=== PATIENT | male | born 1975 | race Caucasian/White ===

== ENCOUNTER 2020-09-03 04:05 | Inpatient (IN) | payer BC, SELFPAY ==
[2020-09-03] VITALS (9 sets, daily range): BP systolic 127–148; BP diastolic 85–98; PULSE 78–125; RESP 16–20; TEMP 36.7–37.1; O2SAT 94–98; BMI 30.5
--- NOTE | ~2020-09-03 | XR_ITS ---
EXAMINATION: XR abdomen NG/feed tube insert EXAM DATE: 09/03/2020 06:56 INDICATION: Feeding tube placement. TECHNIQUE: Frontal projection(s) of the abdomen for interpretation. There is no prior study for lola stuart. FINDINGS: Feeding tube tip projects over left upper quadrant gastric cardial region. Some contrast w ithin the kidneys from recent intravenous injection. Several mid abdominal loops of moderately dilate d small bowel, small bowel obstruction correlating with prior CT scan. IMPRESSION: 1. Feeding tube in position. 2. Small bowel obstruction. Reviewed, dictated and finalized at location A.
--- NOTE | ~2020-09-03 | XR_ITS ---
EXAMINATION: XR sm bowel follow through WS EXAM DATE: 09/05/2020 12:20 INDICATION: Crohn's stricture . History of surgery over [address] TECHNIQUE: Hospice Rn radiograph was acquired. Small bowel series was performed with water-soluble Omnip aque 350 solution through a nasogastric tube. Spot images of the terminal ileum were acquired. Pul sed dose reduction fluoroscopy was used with fluoroscopic time of 0.3 minutes. A total of 35 images obtained for the exam. The DAP for this procedure was 19 Gycm2. Correlation is made to CT/05/14. FINDINGS: Feeding tube confirmed in position. Unremarkable stomach. Patient reportedly had terminal i montoya resection. The small bowel loop in its location leading into the colonic anastomosis site has lo ss of normal haustral folds for about 10 cm segment, has a straightened appearance, and at times was severely dilated until contrast would push through to the cecum. Appearance is consistent with inflam matory bowel disease. Rapid transit time of 15 minutes. IMPRESSION: 1. Abnormal terminal ileal segment consistent with Crohn's disease. 2. Rapid transit time 15 minutes. Reviewed, dictated and finalized at location A.
--- NOTE | ~2020-09-03 | XR_ITS ---
EXAMINATION: XR abdomen/kub 1V DATE: 09/04/2020 13:34 INDICATION: Small bowel obstruction. TECHNIQUE: A supine view of the abdomen on 2 radiographs was obtained. COMPARISON: CT abdomen and pelvis 09/03/2020 FINDINGS: There are no gas-filled dilated loops of bowel. There is a small volume of stool in the col on. The nasogastric tube tip is in the stomach. IMPRESSION: 1. Nonobstructive bowel gas pattern. Reviewed, dictated and finalized at location A.
--- NOTE | ~2020-09-03 | CT_ITS ---
EXAMINATION: CT abdomen pelvis w con INDICATION: Abdominal pain, history of Crohn's disease TECHNIQUE: Computed tomographic images of the abdomen and pelvis were obtained after the administrati on of 100 cc of Omnipaque 350 intravenous contrast. The dose-length product (DLP) was 1160.84 mGy-cm. Automated exposure control and iterative reconstruction technique were employed. COMPARISON: 04/05/2019 FINDINGS: Minimal dependent atelectasis is present in the lung bases. The heart size is normal. The l iver, spleen, pancreas, gallbladder, and adrenal glands are normal. The kidneys are unremarkable. The re is an ileocolic suture line. There is circumferential wall thickening, mucosal enhancement, and st ricturing involving approximately 8 cm segment of distal small bowel just proximal to the surgical an astomosis. The upstream bowel is dilated. There is no free intraperitoneal gas. No pathologically enl arged abdominal or pelvic lymph nodes are identified. IMPRESSION: 1. 8 cm segment of wall thickening and stricturing in the distal small bowel resulting in small bowel obstruction, most consistent with Crohn disease. Reviewed, dictated and finalized at location B. IMPRESSION: 1. 8 cm segment of wall thickening and stricturing in the distal small bowel re sulting in small bowel obstruction, most consistent with Crohn disease.
--- NOTE | 2020-09-03 04:29 | ED.ABDPAIN ---
HPI - Abdominal Pain General Chief Complaint: Abdominal Pain Stated Complaint: abd pain Time Seen by Provider: 09/03/20 04:23 Source: RN notes reviewed History of Present Illness HPI narrative: Patient presents emergency department from home for abdominal pain. Patient states symptoms began 2 days ago. Pain is located diffusely throughout the abdomen states his last bowel movement was 2 days ago and he has had several episodes of nausea vomiting this evening. Patient states he has a history of Crohn's disease followed by Dr. Johnson. States he has been taking all medications as prescribed and states this does feel like another bowel obstruction he denies any fevers or chills chest pain shortness of breath or any other symptoms Related Data Home Medications Medication Instructions Recorded Confirmed ferrous sulfate [Iron (ferrous 325 mg PO DAILY 04/05/19 12/15/19 sulfate)] mecobalamin (vitamin B12) 1,000 mcg SUBLINGUAL DAILY 04/05/19 12/15/19 Allergies Allergy/AdvReac Type Severity Reaction Status Date / Time No Known Allergies Allergy Verified 09/03/20 04:14 Review of Systems Review of Systems: Narrative: Gen.: Denies fevers or chills ENT: Denies congestion Respiratory: Denies shortness of breath or cough CV: Denies chest pain or palpitations GI: see HPI denies burning, urgency, frequency or hematuria Musculoskeletal: Denies back pain or muscle pain Neuro: Denies numbness, tingling, weakness or focal weakness Skin: Denies rash Except as documented, all other systems reviewed and negative PMFSH Past Medical History Medical History (Updated 09/03/20 @ 06:08 by Noe Katz DO) History of Crohn's disease Lower abdominal pain Partial small bowel obstruction Surgical History Surgical History History of resection of small bowel With cecectomy Family History Family History Father Hypertension Father Hypertension Family history of elevated blood lipids Social History Social History Smoking packs per day: 0.20 Smoking cigarettes per day: 4.0 Years smoked: 24 Smoking pack-years: 4.80 Smoking status: Current every day smoker Tobacco type: cigarettes Second hand tobacco smoke exposure: Yes Additional smoking assessment comments: will order gum Alcohol intake: current Drinks per week: 1 Substance use: never Substance use type: does not use Gender identity (if verbalized by the patient): Male Spiritual care concerns: No Agree to blood products: No Exam Narrative: Exam Narrative: APPEARANCE: No acute distress, nontoxic, resting in bed HEENT: Normocephalic, atraumatic, OMM RESPIRATORY: No respiratory distress, clear to auscultation bilaterally with no rhonchi wheezing or rales CARDIOVASCULAR: RRR s murmur ABDOMINAL: Soft nondistended diffusely tender to palpation no rebound or guarding MUSCULOSKELETAl: Moves all extremities. No clubbing, cyanosis or edema. NEURO: Awake and alert. Following commands, speech normal, no focal deficits SKIN:: Warm, dry. Normal Color PSYCHIATRIC: Normal affect/mood Course Course Emergency Course: Discussed with Dr. Borjas for GI presentation work-up agrees with consult at this time. Agrees with plan for NG tube request patient be started on Solu-Medrol 40 mg every 8 hours. Request general surgery consult Discussed with Dr. Magana presentation work-up agrees with consult Discussed with DEISI Jay for Dr. Urrutia presentation work-up agrees with admission at this time Discussed with patient and family results of workup and diagnosis. Discussed need for admission. Patient and family understand and agree to current treatment plan Vital Signs Vital signs: Vital Signs Temperature 98.1 F 09/03/20 04:11 Pulse Rate 117 H 09/03/20 04:11 Respiratory Rate 2
[2020-09-03 04:32] LABS: Basophils Percent Auto 0.4 % (0.2-1.2); Eosinophils Percent Auto 0.4 % (0-4.4); Hematocrit 45.9 % (42.0-52.0); Hemoglobin 16.1 g/dL (14.0-18.0); Immature Granulocyte Absolute 0.03 K/mm3 (0.00-0.031); Immature Granulocyte Percent A 0.3 % (0-0.5); Lymphocytes Absolute Auto 0.69 K/mm3 (0.9-3.2); Lymphocytes Percent Auto 6.5 % (18.3-44.2); Mean Corpuscular HGB Conc 35.1 g/dl (32-36); Mean Corpuscular Hemoglobin 31.2 pg (26-34); Mean Platelet Volume 8.3 fl (7.4-10.4); Monocytes Absolute Auto 1.1 K/mm3 (0.1-0.6); Neutrophils Absolute Auto 8.8 K/mm3 (1.3-6.7); Neutrophils Percent Auto 82.4 % (45.5-73.1); Platelet Count Result 278 k/mm3 (150-375); Red Blood Count 5.16 M/mm3 (4.6-6.20); Red Cell Distribution Width 13.6 % (11.5-14.5); White Blood Count 10.6 K/mm3 (4.5-10.0)
[2020-09-03 04:47] LABS: Alanine Aminotransferase 25 U/L (4-50); Albumin Level 4.3 g/dL (3.5-5.1); Alkaline Phosphatase 85 U/L (38-126); Anion Gap 9 mmol/L (8-16); Aspartate Amino Transferase 29 U/L (17-59); Bilirubin,Total 0.7 mg/dL (0.2-1.3); Blood Urea Nitrogen 11 mg/dL (9-20); Calcium 9.3 mg/dL (8.4-10.2); Carbon Dioxide 27 mmol/L (22-30); Chloride 103 mmol/L (98-107); Estimated CRCL calculation 90 ml/min; Estimated Glomerular Filt Rate > 60; Glucose 147 mg/dL (75-110); Lipase 46 U/L (23-300); Potassium 3.3 mmol/L (3.4-5.0); Sodium 139 mmol/L (137-145)
[2020-09-03] MEDS: SODIUM CHLORIDE 0.9% IV 1,000 ML 999 ML IV CONT (04:47)
[2020-09-03] MEDS: ONDANSETRON INJ 4 MG/2 ML VIAL IV PUSH (04:47)
[2020-09-03] MEDS: MORPHINE SULFATE (*CRX) 4 MG/ML INJ IV PUSH ×7 (04:49→19:51)
[2020-09-03 05:07] LABS: Lactic Acid Reflex 2.6 mmol/L (0.7-2.1)
[2020-09-03 05:58] LABS: Add Urine Microscopic? YES; Appearance Urine Clear (Clear); Bilirubin Urine Negative (Negative); Blood Urine 1+ (Negative); Color Urine Yellow (Yellow); Glucose Urine UA Negative (Negative); Ketones Urine Negative (Negative); Leukocyte Esterase Ur Negative LEU/UL (Negative); Mucus Urine Rare /lpf; Nitrate Urine Negative (Negative); Protein Urine 1+ mg/dL (Negative); Squamous Epithelial Cell Urine Rare /hpf (Few); Urobilinogen Urine Negative mg/dL (<2.0); WBC Urine 0-3 /hpf
[2020-09-03 06:07] LABS: Specific Grav Ur 1.046 (1.001-1.035)
[2020-09-03] MEDS: PANTOPRAZOLE SODIUM IV 40 MG VIAL IV PUSH (06:11)
[2020-09-03] MEDS: methylPREDNISolone SOD SUCC 125 MG VIAL IV PUSH (06:13)
[2020-09-03 07:54] LABS: Reflex Lactic Acid Yes or No Add Lactic
--- NOTE | 2020-09-03 08:00 | ADMGEN ---
This patient, Noe Webb II, was admitted to [facility] Surg Room 319-01. Patient/family oriented to hospital policies and general routines including ID bracelet, bed and alarms, visiting hours, pain management, procedures, bathroom and other care routines, personal items, smoking policy, room service/diet, and visiting hours. Information on how to activate the Rapid Response Team has been discussed. Patient/Family are encouraged to report perceived risks to care and to ask questions if they do not understand what they are told or what they should do.
[2020-09-03] MEDS: SODIUM CHLORIDE 0.9% IV 1,000 ML 125 ML IV CONT ×2 (08:05→15:55)
[2020-09-03 08:21] LABS: Lactic Acid 0.7 mmol/L (0.7-2.1)
--- NOTE | 2020-09-03 13:36 | PM.IMHP ---
H&P: HPI History of Present Illness Date/Time: 09/03/20 13:36 patient is a 44-year-old male with history of Crohn disease presented emergency department with a complaint abdominal for last 2 days and symptoms were progressive getting worse and presented emergency department further evaluate, patient had CT scan of the abdomen showed: 8 cm segment of wall thickening and stricturing in the distal small bowel resulting in small bowel obstruction, most consistent with Crohn disease. patient is clinically stable no significant nausea or vomiting, patient was started on Zosyn, Solu-Medrol, NPO, IVF, and pain management, patient will be seen by general surgery and GI and further recommendation to follow. Chief Complaint: abdominal pain Review of Systems Review of Systems: All systems reviewed & are unremarkable except as noted in HPI and below PMFSH Past Medical History Medical History (Updated 09/03/20 @ 06:08 by Noe Katz DO) History of Crohn's disease Lower abdominal pain Partial small bowel obstruction Surgical History Surgical History History of resection of small bowel With cecectomy Family History Family History Father Hypertension Father Hypertension Family history of elevated blood lipids Social History Social History Smoking packs per day: 0.20 Smoking cigarettes per day: 4.0 Years smoked: 24 Smoking pack-years: 4.80 Smoking status: Current every day smoker Tobacco type: cigarettes Smokeless tobacco user: chewing tobacco Second hand tobacco smoke exposure: Yes Additional smoking assessment comments: will order gum Alcohol intake: current Drinks per week: 1 Substance use: never Substance use type: does not use Gender identity (if verbalized by the patient): Male Spiritual care concerns: No Agree to blood products: No Meds Home Medications and Allergies Home Medications Medication Instructions Recorded Confirmed Type mecobalamin (vitamin B12) 1,000 mcg PO DAILY 04/05/19 09/03/20 History azathioprine 50 mg tablet 100 mg PO DAILY #180 tablet 07/24/20 09/03/20 Rx Allergies Allergy/AdvReac Type Severity Reaction Status Date / Time No Known Allergies Allergy Verified 09/03/20 08:29 Vital Signs Vital Signs - 24 hr 09/03/20 04:11 09/03/20 05:00 09/03/20 06:15 Temperature 98.1 F Pulse Rate 117 H 92 78 Respiratory Rate 20 19 20 Blood Pressure 148/85 H 133/91 H 129/91 H Pulse Oximetry 98 94 96 09/03/20 07:02 09/03/20 08:24 09/03/20 09:35 Temperature 98.4 F Pulse Rate 125 H 82 Respiratory Rate 18 Blood Pressure 140/98 H Pulse Oximetry 95 94 Exam Narrative: Exam Narrative: Patient is comfortable, NAD HEENT: eyes are clear and none icteric LUNGS:CTA HEART: RR S1S2 ABD: BS+, tender in left lower quadrant Lower extremities: no edema SKIN: nonjaundiced Neuro: grossly intact. H&P: Results Labs Labs: Short CBC 09/03/20 Range/Units 04:19 WBC 10.6 H (4.5-10.0) K/mm3 Hgb 16.1 (14.0-18.0) g/dL Hct 45.9 (42.0-52.0) % Plt Count 278 (150-375) k/mm3 BMP 09/03/20 04:19 Sodium 139 Potassium 3.3 L Chloride 103 Carbon Dioxide 27 BUN 11 Creatinine 1.20 Glucose 147 H Calcium 9.3 Liver Function 09/03/20 Range/Units 04:19 Total Bilirubin 0.7 (0.2-1.3) mg/dL AST 29 (17-59) U/L ALT 25 (4-50) U/L Alkaline Phosphatase 85 (38-126) U/L Albumin 4.3 (3.5-5.1) g/dL Urine 09/03/20 Range/Units 05:43 Urine Color Yellow (Yellow) Urine Appearance Clear (Clear) Urine pH 6.0 (5.0-9.0) Ur Specific Rawlings 1.046 H (1.001-1.035) Urine Protein 1+ H (Negative) mg/dL Urine Glucose (UA) Negative (Negative) mg/dL Assessment and Plan Assessment and plan (1) Partial small lynda
[2020-09-03] MEDS: methylPREDNISolone SOD SUCC 40 MG VIAL IV PUSH ×2 (14:28→21:49)
--- NOTE | 2020-09-03 14:51 | PM.CNGS ---
Assessment and Plan Assessment and plan (1) Partial small bowel obstruction: Code(s): K56.600 - Partial intestinal obstruction, unspecified as to cause Status: Acute Assessment and Plan: CT scan with evidence of an 8 cm segment of terminal ileum wall thickening and stricture causing a small bowel obstruction. Patient showing some signs of bowel function today. Will continue with NG tube decompression, IV fluids, analgesics, and bowel rest for now. GI has been consulted, and he has been started on IV steroids and the home dose of his Imuran. The patient is requesting to consider surgical resection due to the repeat hospitalizations and increase in frequency of symptoms at home that sound like intermittent partial small bowel obstructions. We will await GI's recommendations and continue conservative measures for now. Dr. Magana will also be evaluating the patient and discuss options. Thank you for allowing us to see the patient in consultation and we will continue to follow along with you. (2) Crohn's disease of small intestine with intestinal obstruction: Code(s): K50.012 - Crohn's disease of small intestine with intestinal obstruction Status: Acute Assessment and Plan: Continue IV steroids and treatment per GI. GI consulted and will await their recommendations. Additional Plan I have discussed the patient's case and plan of care with Dr. Magana. History of Present Illness Consult details Consult date: 09/03/20 Reason for consult: other (Small bowel obstruction secondary to terminal ileum stricture, Crohns disease) Requesting physician: Noe Katz DO Narrative: This is a 44-year-old male with a long history of Crohn's disease, who presented to the ER with complaints of abdominal pain and vomiting. He was initially diagnosed with Crohn's as a teenager and eventually had an ileocecectomy in 1996. Following surgery, he was on Imuran for maintenance up until about 3-4 years ago. He was off his medication due to his [employer] retiring and he didn't seek care elsewhere. Since then, he has established care with Dr. Johnson and has been on Imuran since his last hospitalization in March of 2019. He has now been hospitalized 4 times since 2016, including this hospital stay, for a small bowel obstruction secondary to a stricture in the terminal ileum. All episodes have resolved with treatment of his Crohn's and conservative measures. He reports having a colonoscopy last in 2019 that showed narrowing of the terminal ileum. He states that he began having pain 2 days ago after eating a salad. He reports cramping lower abdominal pain and bloating. He then developed nausea with one episode of vomiting. Due to the severe pain, he presented to the ER for evaluation. CT scan of the abdomen and pelvis showed an 8 cm segment of wall thickening and stricturing in the distal small bowel resulting in small bowel obstruction. The patient was admitted to the Hospitalist. GI has been consulted. Our service was consulted for the small bowel obstruction. The patient is now seen on the medical floor. He reports little to no improvement in his abdominal pain. He does feel his bloating is better. Reports flatus, but no BM since around 4 pm two days ago. No other complaints at this time. Also to note, the patient reports that he has frequent episodes of abdominal pain and constipation at home about every other month that resolves with bowel rest and time. He is ultimately trying conservative management at home to avoid coming to the hospital. He feels these episodes have become more frequent in the past few years. Review of Systems Review of Systems: All systems reviewed & are unremarkable except as noted in HPI and below Constitutional: Constitutional: Reports as per HPI, Denies chills, Denies fatigue and Denies fever(s) Eyes: Eyes: Reports no additional eye complaints and Denies change in vision ENT: Reports system reviewed
--- NOTE | 2020-09-03 16:56 | WPDGICN ---
Assessment and Plan Assessment and plan (1) Crohn's disease of small intestine with intestinal obstruction: Code(s): K50.012 - Crohn's disease of small intestine with intestinal obstruction Status: Acute Assessment and Plan: he has been started on intravenous steroids and antibiotics. NG tube suction is in place. He understands that diet will be advanced when it is felt that his obstruction is resolving sufficiently to be on a liquid diet. He is adamant that he is not going to take any biologic therapy. He states that he would rather have surgery. GI Consult Note Consult date/time: 09/03/20 16:56 HPI: Noe Webb II is a 44 year old male Who was admitted through the emergency room with abdominal pain and vomiting. He has long history of Crohn's disease and in fact he has been hospitalized for small bowel obstruction due to his Crohn's disease a couple of times in the last 2 years. He states that he has declined biologic therapy because he is will not injected self with the needle. He is taking azathioprine along. He states that he was doing fine until Thursday. He had a large dinner which included a salad and sometime later began to feel full and distended next day he was having abdominal pain and he realized he was not having any bowel movements. Normally his stools are loose. The patient required surgery with resection of his distal small bowel in 1996. He vomited once yesterday. In the emergency room he had a CT scan that showed narrowing of the distal small bowel with some proximal dilatation. The patient has been seen by surgery the patient states that he is inclined to have surgery brother that any biologic therapy. He recalls that with his last admissions he was sent home on tapering doses of steroids and did well with that. He has had no weight loss. He last saw Dr. knott in the office few months ago. He has been able to tolerate solids until recently but he knows that when he has these occurrences that he needs to go on a diet that is low in vegetable matter. He states that his pain is much improved over this morning. Review of Systems Review of Systems: All systems reviewed & are unremarkable except as noted in HPI and below PMFSH Past Medical History Medical History History of Crohn's disease Lower abdominal pain Partial small bowel obstruction Surgical History Surgical History History of resection of small bowel 1997 Ileocecectomy Family History Family History Father Hypertension Father Hypertension Family history of elevated blood lipids Social History Social History Smoking packs per day: 0.20 Smoking cigarettes per day: 4.0 Years smoked: 24 Smoking pack-years: 4.80 Smoking status: Current every day smoker Tobacco type: cigarettes Smokeless tobacco user: chewing tobacco Second hand tobacco smoke exposure: Yes Additional smoking assessment comments: will order gum Alcohol intake: current Drinks per week: 1 Substance use: never Substance use type: does not use Gender identity (if verbalized by the patient): Male Spiritual care concerns: No Agree to blood products: No Meds Home Medications and Allergies Home Medications Medication Instructions Recorded Confirmed Type mecobalamin (vitamin B12) 1,000 mcg PO DAILY 04/05/19 09/03/20 History azathioprine 50 mg tablet 100 mg PO DAILY #180 tablet 07/24/20 09/03/20 Rx Allergies Allergy/AdvReac Type Severity Reaction Status Date / Time No Known Allergies Allergy Verified 09/03/20 08:29 Vital Signs Vital Signs - 24 hr 09/03/20 04:11 09/03/20 05:00 09/03/20 06:15 Temperature 36.7 C Pulse Rate 117 H 92 78 Respiratory Rate 20 19 20 Blood Pressure 148/85 H 1
[2020-09-04] VITALS (7 sets, daily range): BP systolic 120–138; BP diastolic 66–86; PULSE 67–85; RESP 16–20; TEMP 36.2–36.6; O2SAT 96–97
[2020-09-04] MEDS: MORPHINE SULFATE (*CRX) 4 MG/ML INJ IV PUSH (00:13)
[2020-09-04] MEDS: SODIUM CHLORIDE 0.9% IV 1,000 ML 125 ML IV CONT ×2 (00:13→07:43)
[2020-09-04] MEDS: methylPREDNISolone SOD SUCC 40 MG VIAL IV PUSH ×3 (06:14→22:30)
[2020-09-04 06:33] LABS: Basophils Percent Auto 0.1 % (0.2-1.2); Hematocrit 39.2 % (42.0-52.0); Hemoglobin 13.7 g/dL (14.0-18.0); Immature Granulocyte Absolute 0.03 K/mm3 (0.00-0.031); Immature Granulocyte Percent A 0.3 % (0-0.5); Lymphocytes Absolute Auto 0.67 K/mm3 (0.9-3.2); Lymphocytes Percent Auto 7.8 % (18.3-44.2); Mean Corpuscular HGB Conc 34.9 g/dl (32-36); Mean Corpuscular Hemoglobin 31.4 pg (26-34); Mean Corpuscular Volume 89.9 fl (80-100); Mean Platelet Volume 8.5 fl (7.4-10.4); Monocytes Absolute Auto 0.6 K/mm3 (0.1-0.6); Monocytes Percent Auto 6.7 % (2.6-8.5); Neutrophils Absolute Auto 7.3 K/mm3 (1.3-6.7); Neutrophils Percent Auto 85.1 % (45.5-73.1); Platelet Count Result 252 k/mm3 (150-375); Red Blood Count 4.36 M/mm3 (4.6-6.20); Red Cell Distribution Width 13.4 % (11.5-14.5); White Blood Count 8.6 K/mm3 (4.5-10.0)
[2020-09-04 06:42] LABS: Alanine Aminotransferase 20 U/L (4-50); Albumin Level 3.5 g/dL (3.5-5.1); Alkaline Phosphatase 69 U/L (38-126); Anion Gap 4 mmol/L (8-16); Aspartate Amino Transferase 21 U/L (17-59); Bilirubin,Total 0.4 mg/dL (0.2-1.3); Blood Urea Nitrogen 13 mg/dL (9-20); Calcium 7.7 mg/dL (8.4-10.2); Carbon Dioxide 30 mmol/L (22-30); Chloride 105 mmol/L (98-107); Estimated CRCL calculation 118 ml/min; Estimated Glomerular Filt Rate > 60; Glucose 132 mg/dL (75-110); Magnesium 1.5 mg/dL (1.6-2.3); Potassium 3.2 mmol/L (3.4-5.0); Sodium 139 mmol/L (137-145)
[2020-09-04] MEDS: azaTHIOprine 50 MG TABLET 100 MG PO (09:22)
[2020-09-04] MEDS: CYANOCOBALAMIN 1,000 MCG TABLET 1000 MCG PO (09:22)
--- NOTE | 2020-09-04 14:56 | PM.PNGS ---
Progress Note: A&P Assessment and Plan (1) Partial small bowel obstruction: Code(s): K56.600 - Partial intestinal obstruction, unspecified as to cause Status: Acute Assessment and Plan: Seems to be resolving with treatment of his Crohn's. Showing more signs of bowel function today, but still had over 500 cc from the NG tube overnight. Abdominal x-ray today shows nonobstructive bowel gas pattern. Continue NG tube decompression and bowel rest. May consider Gastrografin small bowel follow through tomorrow to further evaluate. Patient is still interested in having surgical resection. It would be preferable for him to complete the course of steroids for this acute flare-up and hopefully allow this bowel obstruction to resolve prior to proceeding with any surgical intervention. This could be discussed further as an outpatient if he continues to improve. (2) Crohn's disease of small intestine with intestinal obstruction: Code(s): K50.012 - Crohn's disease of small intestine with intestinal obstruction Status: Acute Assessment and Plan: Continue IV steroids and treatment per GI. Additional Plan I discussed the plan of care with Dr. Magana. Subjective Subjective Date/Time Seen: 09/04/20 13:56 Patient reports: no new complaints, feels better and flatus Interval history: Patient feeling much better today. Reports lots of flatus. Denies abdominal pain and feels his bloating has improved. No other complaints at this time. Review of Systems Review of Systems: All systems reviewed & are unremarkable except as noted in HPI and below Exam Const: General: no acute distress, alert and awake GI: Inspection: normal to inspection and non-distended GI Palp: Yes Soft to palpation, No Tenderness to palpation present (GI) and No Guarding due to palpation present (GI) Auscultation: normal bowel sounds Neuro: General: moves all extremities and no focal motor deficits Extrem: General: no clubbing, cyanosis or edema Psych: Mental Status: mental status grossly normal Insight: Good insight present (Psych) Judgement: Good judgement present (Psych) Objective Data Vital Signs Vital Signs: Vital Signs - 24 hr 09/03/20 20:36 09/03/20 22:00 09/04/20 06:00 Temperature 98.7 F 97.1 F L Pulse Rate 95 95 67 Respiratory Rate 16 16 16 Blood Pressure 127/87 120/79 Pulse Oximetry 94 94 97 09/04/20 12:05 09/04/20 12:07 Temperature 97.5 F L 97.5 F L Pulse Rate 85 85 Respiratory Rate 20 20 Blood Pressure 129/84 129/84 Pulse Oximetry 97 97 Intake/Output Intake/Output: Intake & Output 09/01/20 09/02/20 09/03/20 09/04/20 23:59 23:59 23:59 23:59 Intake Total 3000 1000 Output Total 1250 1050 Balance 1750 -50 Meds/Results Medications: Active Medications Generic Name Dose Route Start Last Admin Trade Name Freq PRN Reason Stop Dose Admin Azathioprine 100 mg 09/04/20 09:00 09/04/20 09:22 Azathioprine 50 Mg Tablet PO 100 mg DAILY JUSTINE Administration Cyanocobalamin 1,000 mcg 09/04/20 09:00 09/04/20 09:22 Cyanocobalamin 1,000 Mcg Tablet PO 1,000 mcg QAM JUSTINE Administration Potassium Chloride 40 meq/ 1,024 mls @ 75 mls/hr 09/04/20 08:30 09/04/20 12:08 Magnesium Sulfate 2 gm/ Sodium IV CONT 09/04/20 22:09 75 mls/hr Chloride .[id number] ONE Infusion Sodium Chloride 1,000 mls @ 125 mls/hr 09/04/20 18:30 Normal Saline Iv IV CONT .Q8H JUSTINE Methylprednisolone Sodium Succinate 40 mg 09/03/20 14:00 09/04/20 14:27 Methylprednisolone Sod Succ 40 Mg Vial IV PUSH 40 mg Q8HR JUSTINE Administration Morphine Sulfate 4 mg 09/03/20 06:03 09/04/20 00:13 Morphine Sulfate (*Crx) 4 Mg/Ml Inj IV PUSH 4 mg Q2H PRN Administration Pain Rated 7-10 Ondansetron HCl 4 mg 09/03/20 06:03 Ondansetron Inj 4 Mg/2 Ml Vial IV PUSH Q4H PRN Nausea Radiology Results: ITS Impressions Abdomen/Pelvis CT 09/03/20 08:44 IMPRESSION: 1. 8 cm segment of
--- NOTE | 2020-09-04 15:58 | PM.IMPN ---
Progress Note: A&P Assessment and Plan (1) Partial small bowel obstruction: Code(s): K56.600 - Partial intestinal obstruction, unspecified as to cause Status: Acute Assessment and Plan: 09/04/20 15:58 09/03 patient is a 44-year-old male with history of Crohn disease presented emergency department with a complaint abdominal for last 2 days and symptoms were progressive getting worse and presented emergency department further evaluate, patient had CT scan of the abdomen showed: 8 cm segment of wall thickening and stricturing in the distal small bowel resulting in small bowel obstruction, most consistent with Crohn disease. patient is clinically stable no significant nausea or vomiting, patient was started on Zosyn, Solu-Medrol, NPO, IVF, and pain management, patient will be seen by general surgery and GI and further recommendation to follow. 09/04 today patient states pain is better his passing gas, he still has NG tube output, patient was seen by GI recommended biologic treatment for Crohn disease however patient is refusing and prefers having surgery, patient seen by surgery team recommending to continue steroid, abdominal x-ray was done it shows improvement in obstruction, will follow further recommendation from surgery team and plan. (2) Lower abdominal pain: Code(s): R10.30 - Lower abdominal pain, unspecified Status: Inactive Assessment and Plan: most likely secondary to flare-up of Crohn disease and now patient has obstruction plan is above (3) Crohn's disease of small intestine with intestinal obstruction: Code(s): K50.012 - Crohn's disease of small intestine with intestinal obstruction Status: Acute Assessment and Plan: patient is seen by GI and and surgery service further recommendation to follow Subjective Date/time seen: 09/04/20 15:58 09/03 patient is a 44-year-old male with history of Crohn disease presented emergency department with a complaint abdominal for last 2 days and symptoms were progressive getting worse and presented emergency department further evaluate, patient had CT scan of the abdomen showed: 8 cm segment of wall thickening and stricturing in the distal small bowel resulting in small bowel obstruction, most consistent with Crohn disease. patient is clinically stable no significant nausea or vomiting, patient was started on Zosyn, Solu-Medrol, NPO, IVF, and pain management, patient will be seen by general surgery and GI and further recommendation to follow. 09/04 today patient states pain is better his passing gas, he still has NG tube output, patient was seen by GI recommended biologic treatment for Crohn disease however patient is refusing and prefers having surgery, patient seen by surgery team recommending to continue steroid, abdominal x-ray was done it shows improvement in obstruction, will follow further recommendation from surgery team and plan. Review of Systems Review of Systems: All systems reviewed & are unremarkable except as noted in HPI and below Exam Narrative: Exam Narrative: Patient is comfortable, NAD HEENT: eyes are clear and none icteric LUNGS:CTA HEART: RR S1S2 ABD: BS+, tender in left lower quadrant Lower extremities: no edema SKIN: nonjaundiced Neuro: grossly intact. Objective Data Vital Signs Vital Signs: Vital Signs - 24 hr 09/03/20 20:36 09/03/20 22:00 09/04/20 06:00 Temperature 98.7 F 97.1 F L Pulse Rate 95 95 67 Respiratory Rate 16 16 16 Blood Pressure 127/87 120/79 Pulse Oximetry 94 94 97 09/04/20 12:05 09/04/20 12:07 09/04/20 14:00 Temperature 97.5 F L 97.5 F L 98 F Pulse Rate 85 85 79 Respiratory Rate 20 20 18 Blood Pressure 129/84 129/84 136/66 Pulse Oximetry 97 97 96 Intake/Output Intake/Output: Intake & Output 09/01/20 09/02/20 09/03/20 09/04/20 23:59 23:59 23:59 23:59 Intake Total 3000 1000 Output Total 1250 1050 Balance 1750 -50 Meds/Results Medication
[2020-09-05] MEDS: SODIUM CHLORIDE 0.9% IV 1,000 ML 125 ML IV CONT (03:54)
[2020-09-05] MEDS: methylPREDNISolone SOD SUCC 40 MG VIAL IV PUSH ×3 (05:41→21:38)
[2020-09-05 06:00] VITALS: BP 144/87; PULSE 71; RESP 20; TEMP 36.2; O2SAT 97
[2020-09-05 06:20] LABS: Hematocrit 41.8 % (42.0-52.0); Hemoglobin 14.3 g/dL (14.0-18.0); Mean Corpuscular HGB Conc 34.2 g/dl (32-36); Mean Corpuscular Hemoglobin 31.2 pg (26-34); Mean Corpuscular Volume 91.3 fl (80-100); Mean Platelet Volume 8.7 fl (7.4-10.4); Platelet Count Result 256 k/mm3 (150-375); Red Blood Count 4.58 M/mm3 (4.6-6.20); Red Cell Distribution Width 13.9 % (11.5-14.5); White Blood Count 10.6 K/mm3 (4.5-10.0)
[2020-09-05 06:30] LABS: Alanine Aminotransferase 22 U/L (4-50); Albumin Level 3.6 g/dL (3.5-5.1); Alkaline Phosphatase 65 U/L (38-126); Anion Gap 5 mmol/L (8-16); Aspartate Amino Transferase 26 U/L (17-59); Bilirubin,Total 0.4 mg/dL (0.2-1.3); Blood Urea Nitrogen 15 mg/dL (9-20); Carbon Dioxide 31 mmol/L (22-30); Chloride 106 mmol/L (98-107); Estimated CRCL calculation 118 ml/min; Estimated Glomerular Filt Rate > 60; Glucose 132 mg/dL (75-110); Magnesium 2.2 mg/dL (1.6-2.3); Potassium 3.2 mmol/L (3.4-5.0); Sodium 142 mmol/L (137-145)
--- NOTE | 2020-09-05 07:47 | WPDGIPROGNO ---
Progress Note: A&P Assessment and Plan (1) Crohn's disease of small intestine with intestinal obstruction: Code(s): K50.012 - Crohn's disease of small intestine with intestinal obstruction Status: Acute Assessment and Plan: Likely will have small bowel series today and then begin clear liquid diet. The plan is that he will be discharged on tapering steroids with resection of the involved segment in the couple of weeks. I told him that, if insurance pays for it may be able to go home on Entocort which does not have the systemic side effects. He is however okay with tapering prednisone as he has done that in the past. Subjective Date/time seen: 09/05/20 07:47 he is feeling much better. He has passing gas. His abdominal pain is virtually gone. He is getting hungry. He believes that he is going to have a small bowel series this morning. He knows from prior experience that he then will be on a clear liquid diet and advanced as tolerated. Review of Systems Review of Systems: All systems reviewed & are unremarkable except as noted in HPI and below Exam Const: General: cooperative and healthy appearing Orientation/consciousness: oriented to person GI: GI Palp: No abdominal tenderness, Yes Soft to palpation and Yes No hepatosplenomegaly present Auscultation: normal bowel sounds Objective Data Vital Signs Vital Signs: Vital Signs - 24 hr 09/04/20 12:05 09/04/20 12:07 09/04/20 14:00 Temperature 36.4 C L 36.4 C L 36.6 C Pulse Rate 85 85 79 Respiratory Rate 20 20 18 Blood Pressure 129/84 129/84 136/66 Pulse Oximetry 97 97 96 09/04/20 20:00 09/04/20 22:00 09/04/20 22:55 Temperature 36.3 C L Pulse Rate 79 83 80 Respiratory Rate 18 20 Blood Pressure 138/86 Pulse Oximetry 96 96 97 09/05/20 06:00 Temperature 36.2 C L Pulse Rate 71 Respiratory Rate 20 Blood Pressure 144/87 H Pulse Oximetry 97 Intake/Output Intake/Output: Intake & Output 09/02/20 09/03/20 09/04/20 09/05/20 23:59 23:59 23:59 23:59 Intake Total 3000 2023 1000 Output Total 1250 2049 850 Balance 1750 -26 150 Meds/Results Medications: Active Medications Generic Name Dose Route Start Last Admin Trade Name Freq PRN Reason Stop Dose Admin Azathioprine 100 mg 09/04/20 09:00 09/04/20 09:22 Azathioprine 50 Mg Tablet PO 100 mg DAILY JUSTINE Administration Cyanocobalamin 1,000 mcg 09/04/20 09:00 09/04/20 09:22 Cyanocobalamin 1,000 Mcg Tablet PO 1,000 mcg QAM JUSTINE Administration Sodium Chloride 1,000 mls @ 125 mls/hr 09/04/20 18:30 09/05/20 03:54 Normal Saline Iv IV CONT 125 mls/hr .Q8H JUSTINE Administration Potassium Chloride 500 mls @ 125 mls/hr 09/05/20 07:45 Kcl 40 Meq/D5w 500 Ml Peripheral IVPB 09/05/20 11:44 ONCE ONE Methylprednisolone Sodium Succinate 40 mg 09/03/20 14:00 09/05/20 05:41 Methylprednisolone Sod Succ 40 Mg Vial IV PUSH 40 mg Q8HR JUSTINE Administration Morphine Sulfate 4 mg 09/03/20 06:03 09/04/20 00:13 Morphine Sulfate (*Crx) 4 Mg/Ml Inj IV PUSH 4 mg Q2H PRN Administration Pain Rated 7-10 Ondansetron HCl 4 mg 09/03/20 06:03 Ondansetron Inj 4 Mg/2 Ml Vial IV PUSH Q4H PRN Nausea Radiology Results: ITS Impressions Abdomen/Pelvis CT 09/03/20 08:44 IMPRESSION: 1. 8 cm segment of wall thickening and stricturing in the distal small bowel resulting in small bowel obstruction, most consistent with Crohn disease. Abdomen X-Ray 09/04/20 14:00 IMPRESSION: 1. Nonobstructive bowel gas pattern. Labs Labs: Laboratory Results - last 24 hr 09/05/20 09/05/20 05:53 05:53 WBC 10.6 H RBC 4.58 L Hgb 14.3 Hct 41.8 L MCV 91.3 MCH 31.2 MCHC 34.2 RDW 13.9 Plt Count 256 MPV 8.7 Sodium 142 Potassium 3.2 L Chloride 106 Carbon Dioxide 31 H Anion Gap 5 L BUN 15 Creatinine 0.90 Estim Creat Clear Calc 118 Estimated GFR > 60 Glucose 132 H Calcium 8.0 L
[2020-09-05 08:10] VITALS: O2SAT 97
[2020-09-05] MEDS: azaTHIOprine 50 MG TABLET 100 MG PO (08:38)
[2020-09-05] MEDS: CYANOCOBALAMIN 1,000 MCG TABLET 1000 MCG PO (08:38)
--- NOTE | 2020-09-05 09:47 | PM.IMPN ---
Progress Note: A&P Assessment and Plan (1) Partial small bowel obstruction: Code(s): K56.600 - Partial intestinal obstruction, unspecified as to cause Status: Acute Assessment and Plan: 09/05/20 09:47 09/03 patient is a 44-year-old male with history of Crohn disease presented emergency department with a complaint abdominal for last 2 days and symptoms were progressive getting worse and presented emergency department further evaluate, patient had CT scan of the abdomen showed: 8 cm segment of wall thickening and stricturing in the distal small bowel resulting in small bowel obstruction, most consistent with Crohn disease. patient is clinically stable no significant nausea or vomiting, patient was started on Zosyn, Solu-Medrol, NPO, IVF, and pain management, patient will be seen by general surgery and GI and further recommendation to follow. 09/04 today patient states pain is better his passing gas, he still has NG tube output, patient was seen by GI recommended biologic treatment for Crohn disease however patient is refusing and prefers having surgery, patient seen by surgery team recommending to continue steroid, abdominal x-ray was done it shows improvement in obstruction, will follow further recommendation from surgery team and plan. 09/05 today patient states he had a BM this morning, denies any a abdominal pain nausea or vomiting, NG tube is draining dark green liquid, patient will have a small-bowel follow-through today and will be seen surgery most likely will remove the NG tube and start the patient on clear liquid will continue to monitor further recommendation to follow (2) Lower abdominal pain: Code(s): R10.30 - Lower abdominal pain, unspecified Status: Inactive Assessment and Plan: most likely secondary to flare-up of Crohn disease and now patient has obstruction plan is above (3) Crohn's disease of small intestine with intestinal obstruction: Code(s): K50.012 - Crohn's disease of small intestine with intestinal obstruction Status: Acute Assessment and Plan: patient is seen by GI and and surgery service further recommendation to follow Subjective Date/time seen: 09/05/20 09:47 09/03 patient is a 44-year-old male with history of Crohn disease presented emergency department with a complaint abdominal for last 2 days and symptoms were progressive getting worse and presented emergency department further evaluate, patient had CT scan of the abdomen showed: 8 cm segment of wall thickening and stricturing in the distal small bowel resulting in small bowel obstruction, most consistent with Crohn disease. patient is clinically stable no significant nausea or vomiting, patient was started on Zosyn, Solu-Medrol, NPO, IVF, and pain management, patient will be seen by general surgery and GI and further recommendation to follow. 09/04 today patient states pain is better his passing gas, he still has NG tube output, patient was seen by GI recommended biologic treatment for Crohn disease however patient is refusing and prefers having surgery, patient seen by surgery team recommending to continue steroid, abdominal x-ray was done it shows improvement in obstruction, will follow further recommendation from surgery team and plan. 09/05 today patient states he had a BM this morning, denies any a abdominal pain nausea or vomiting, NG tube is draining dark green liquid, patient will have a small-bowel follow-through today and will be seen surgery most likely will remove the NG tube and start the patient on clear liquid will continue to monitor further recommendation to follow Review of Systems Review of Systems: All systems reviewed & are unremarkable except as noted in HPI and below Exam Narrative: Exam Narrative: Patient is comfortable, NAD HEENT: eyes are clear and none icteric NG tube in place LUNGS:CTA HEART: RR S1S2 ABD: BS+, tender in left lower quadrant Lower extremities:
--- NOTE | 2020-09-05 12:58 | PM.PNGS ---
Progress Note: A&P Assessment and Plan (1) Partial small bowel obstruction: Code(s): K56.600 - Partial intestinal obstruction, unspecified as to cause Status: Acute Assessment and Plan: small-bowel follow-through reviewed. 10 cm segment of stricture at the previous anastomosis. I would recommend eventual resection to prevent recurrent obstructions. I would like patient to be tapered off the steroids to help decrease risks of perioperative complications. If patient can tolerate advancing to at least a full liquid diet, then I would recommend discharging with a soft or liquid diet and will follow up with patient in the office to schedule elective partial bowel resection. Will remove NG tube and start clear liquids, possibly home tomorrow if diet can be advanced (2) Crohn's disease of small intestine with intestinal obstruction: Code(s): K50.012 - Crohn's disease of small intestine with intestinal obstruction Status: Acute Subjective Subjective Date/Time Seen: 09/05/20 12:58 Interval history: Bowels moving. No more abdominal pain. Exam GI: Inspection: non-distended and scar ( Vertical midline) GI Palp: Yes Soft to palpation, No Tenderness to palpation present (GI) and No Guarding due to palpation present (GI) Auscultation: normal bowel sounds Objective Data Vital Signs Vital Signs: Vital Signs - 24 hr 09/04/20 14:00 09/04/20 20:00 09/04/20 22:00 Temperature 36.6 C 36.3 C L Pulse Rate 79 79 83 Respiratory Rate 18 18 20 Blood Pressure 136/66 138/86 Pulse Oximetry 96 96 96 09/04/20 22:55 09/05/20 06:00 09/05/20 08:10 Temperature 36.2 C L Pulse Rate 80 71 Respiratory Rate 20 Blood Pressure 144/87 H Pulse Oximetry 97 97 97 Intake/Output Intake/Output: Intake & Output 09/02/20 09/03/20 09/04/20 09/05/20 23:59 23:59 23:59 23:59 Intake Total 3000 2023 1000 Output Total 1250 2049 850 Balance 1750 -26 150 Meds/Results Medications: Active Medications Generic Name Dose Route Start Last Admin Trade Name Freq PRN Reason Stop Dose Admin Azathioprine 100 mg 09/04/20 09:00 09/05/20 08:38 Azathioprine 50 Mg Tablet PO 100 mg DAILY JUSTINE Administration Cyanocobalamin 1,000 mcg 09/04/20 09:00 09/05/20 08:38 Cyanocobalamin 1,000 Mcg Tablet PO 1,000 mcg QAM JUSTINE Administration Methylprednisolone Sodium Succinate 40 mg 09/03/20 14:00 09/05/20 05:41 Methylprednisolone Sod Succ 40 Mg Vial IV PUSH 40 mg Q8HR JUSTINE Administration Morphine Sulfate 4 mg 09/03/20 06:03 09/04/20 00:13 Morphine Sulfate (*Crx) 4 Mg/Ml Inj IV PUSH 4 mg Q2H PRN Administration Pain Rated 7-10 Ondansetron HCl 4 mg 09/03/20 06:03 Ondansetron Inj 4 Mg/2 Ml Vial IV PUSH Q4H PRN Nausea Radiology Results: ITS Impressions Abdomen/Pelvis CT 09/03/20 08:44 IMPRESSION: 1. 8 cm segment of wall thickening and stricturing in the distal small bowel resulting in small bowel obstruction, most consistent with Crohn disease. Abdomen X-Ray 09/04/20 14:00 IMPRESSION: 1. Nonobstructive bowel gas pattern. Small Bowel X-Ray 09/05/20 12:30 IMPRESSION: 1. Abnormal terminal ileal segment consistent with Crohn's disease. 2. Rapid transit time 15 minutes. Labs Labs: Laboratory Results - last 24 hr 09/05/20 09/05/20 05:53 05:53 WBC 10.6 H RBC 4.58 L Hgb 14.3 Hct 41.8 L MCV 91.3 MCH 31.2 MCHC 34.2 RDW 13.9 Plt Count 256 MPV 8.7 Sodium 142 Potassium 3.2 L Chloride 106 Carbon Dioxide 31 H Anion Gap 5 L BUN 15 Creatinine 0.90 Estim Creat Clear Calc 118 Estimated GFR > 60 Glucose 132 H Calcium 8.0 L Magnesium 2.2 Total Bilirubin 0.4 AST 26 ALT 22 Alkaline Phosphatase 65 Total Protein 6.0 L Albumin 3.6 Quality VTE Prophylaxis VTE prophylaxis: mechanical ordered
[2020-09-05 14:00] VITALS: BP 143/84; PULSE 70; RESP 18; TEMP 36.9; O2SAT 98
[2020-09-05 20:00] VITALS: PULSE 70; RESP 18; O2SAT 98
[2020-09-05 22:00] VITALS: BP 147/88; PULSE 78; RESP 20; TEMP 36.3; O2SAT 97
[2020-09-05 22:50] VITALS: O2SAT 97
[2020-09-06] MEDS: methylPREDNISolone SOD SUCC 40 MG VIAL IV PUSH ×2 (05:56→14:28)
[2020-09-06 06:00] VITALS: BP 136/73; PULSE 51; RESP 18; TEMP 36.6; O2SAT 97
[2020-09-06 06:42] LABS: Alanine Aminotransferase 22 U/L (4-50); Albumin Level 3.6 g/dL (3.5-5.1); Alkaline Phosphatase 59 U/L (38-126); Anion Gap 6 mmol/L (8-16); Aspartate Amino Transferase 23 U/L (17-59); Bilirubin,Total 0.4 mg/dL (0.2-1.3); Blood Urea Nitrogen 13 mg/dL (9-20); Calcium 8.1 mg/dL (8.4-10.2); Carbon Dioxide 31 mmol/L (22-30); Chloride 103 mmol/L (98-107); Estimated CRCL calculation 107 ml/min; Estimated Glomerular Filt Rate > 60; Glucose 133 mg/dL (75-110); Potassium 3.6 mmol/L (3.4-5.0); Sodium 140 mmol/L (137-145)
[2020-09-06 07:05] LABS: Hematocrit 41.4 % (42.0-52.0); Hemoglobin 13.9 g/dL (14.0-18.0); Mean Corpuscular HGB Conc 33.6 g/dl (32-36); Mean Corpuscular Hemoglobin 31.4 pg (26-34); Mean Corpuscular Volume 93.5 fl (80-100); Mean Platelet Volume 8.9 fl (7.4-10.4); Platelet Count Result 249 k/mm3 (150-375); Red Blood Count 4.43 M/mm3 (4.6-6.20); Red Cell Distribution Width 13.8 % (11.5-14.5); White Blood Count 12.1 K/mm3 (4.5-10.0)
[2020-09-06] MEDS: CYANOCOBALAMIN 1,000 MCG TABLET 1000 MCG PO (08:58)
[2020-09-06] MEDS: azaTHIOprine 50 MG TABLET 100 MG PO (08:58)
--- NOTE | 2020-09-06 10:20 | PM.PNGS ---
Progress Note: A&P Assessment and Plan (1) Partial small bowel obstruction: Code(s): K56.600 - Partial intestinal obstruction, unspecified as to cause Status: Acute Assessment and Plan: Acute obstruction resolved. Patient still has a narrow stricture that will be at risk for future obstructions. Will allow patient to recover from this episode and then discuss partial bowel resection as outpatient. OK to discharge today Follow up in office in 1 week (2) Crohn's disease of small intestine with intestinal obstruction: Code(s): K50.012 - Crohn's disease of small intestine with intestinal obstruction Status: Acute Subjective Subjective Date/Time Seen: 09/06/20 10:20 Interval history: Tolerating regular diet. No abdominal pain. Bowels moving. Exam GI: Inspection: non-distended and scar ( Vertical midline) GI Palp: Yes Soft to palpation, No Tenderness to palpation present (GI) and No Guarding due to palpation present (GI) Auscultation: normal bowel sounds Objective Data Vital Signs Vital Signs: Vital Signs - 24 hr 09/05/20 14:00 09/05/20 20:00 09/05/20 22:00 Temperature 36.9 C 36.3 C L Pulse Rate 70 70 78 Respiratory Rate 18 18 20 Blood Pressure 143/84 H 147/88 H Pulse Oximetry 98 98 97 09/05/20 22:50 09/06/20 06:00 Temperature 36.6 C Pulse Rate 51 L Respiratory Rate 18 Blood Pressure 136/73 Pulse Oximetry 97 97 Intake/Output Intake/Output: Intake & Output 09/03/20 09/04/20 09/05/20 09/06/20 23:59 23:59 23:59 23:59 Intake Total 3000 4 2770 990 Output Total 1250 0 1125 Balance 1750 -26 1645 990 Meds/Results Medications: Active Medications Generic Name Dose Route Start Last Admin Trade Name Freq PRN Reason Stop Dose Admin Azathioprine 100 mg 09/04/20 09:00 09/06/20 08:58 Azathioprine 50 Mg Tablet PO 100 mg DAILY JUSTINE Administration Cyanocobalamin 1,000 mcg 09/04/20 09:00 09/06/20 08:58 Cyanocobalamin 1,000 Mcg Tablet PO 1,000 mcg QAM JUSTINE Administration Methylprednisolone Sodium Succinate 40 mg 09/03/20 14:00 09/06/20 05:56 Methylprednisolone Sod Succ 40 Mg Vial IV PUSH 40 mg Q8HR JUSTINE Administration Morphine Sulfate 4 mg 09/03/20 06:03 09/04/20 00:13 Morphine Sulfate (*Crx) 4 Mg/Ml Inj IV PUSH 4 mg Q2H PRN Administration Pain Rated 7-10 Ondansetron HCl 4 mg 09/03/20 06:03 Ondansetron Inj 4 Mg/2 Ml Vial IV PUSH Q4H PRN Nausea Radiology Results: ITS Impressions Abdomen/Pelvis CT 09/03/20 08:44 IMPRESSION: 1. 8 cm segment of wall thickening and stricturing in the distal small bowel resulting in small bowel obstruction, most consistent with Crohn disease. Abdomen X-Ray 09/04/20 14:00 IMPRESSION: 1. Nonobstructive bowel gas pattern. Small Bowel X-Ray 09/05/20 12:30 IMPRESSION: 1. Abnormal terminal ileal segment consistent with Crohn's disease. 2. Rapid transit time 15 minutes. Labs Labs: Laboratory Results - last 24 hr 09/06/20 09/06/20 06:01 06:02 WBC 12.1 H RBC 4.43 L Hgb 13.9 L Hct 41.4 L MCV 93.5 MCH 31.4 MCHC 33.6 RDW 13.8 Plt Count 249 MPV 8.9 Sodium 140 Potassium 3.6 Chloride 103 Carbon Dioxide 31 H Anion Gap 6 L BUN 13 Creatinine 1.00 Estim Creat Clear Calc 107 Estimated GFR > 60 Glucose 133 H Calcium 8.1 L Magnesium 2.0 Total Bilirubin 0.4 AST 23 ALT 22 Alkaline Phosphatase 59 Total Protein 6.0 L Albumin 3.6 Quality VTE Prophylaxis VTE prophylaxis: mechanical ordered
--- NOTE | 2020-09-06 11:43 | PM.DS ---
DS: Admitting Diagnosis Admitting Diagnosis Admitting Diagnosis: Lower abdominal DS: Discharge Diagnosis Discharge Diagnosis (1) Partial small bowel obstruction: Code(s): K56.600 - Partial intestinal obstruction, unspecified as to cause Status: Acute Assessment and Plan: 09/05/20 09:47 09/03 patient is a 44-year-old male with history of Crohn disease presented emergency department with a complaint abdominal for last 2 days and symptoms were progressive getting worse and presented emergency department further evaluate, patient had CT scan of the abdomen showed: 8 cm segment of wall thickening and stricturing in the distal small bowel resulting in small bowel obstruction, most consistent with Crohn disease. patient is clinically stable no significant nausea or vomiting, patient was started on Zosyn, Solu-Medrol, NPO, IVF, and pain management, patient will be seen by general surgery and GI and further recommendation to follow. 09/04 today patient states pain is better his passing gas, he still has NG tube output, patient was seen by GI recommended biologic treatment for Crohn disease however patient is refusing and prefers having surgery, patient seen by surgery team recommending to continue steroid, abdominal x-ray was done it shows improvement in obstruction, will follow further recommendation from surgery team and plan. 09/05 today patient states he had a BM this morning, denies any a abdominal pain nausea or vomiting, NG tube is draining dark green liquid, patient will have a small-bowel follow-through today and will be seen surgery most likely will remove the NG tube and start the patient on clear liquid will continue to monitor further recommendation to follow (2) Lower abdominal pain: Code(s): R10.30 - Lower abdominal pain, unspecified Status: Inactive Assessment and Plan: most likely secondary to flare-up of Crohn disease and now patient has obstruction plan is above (3) Crohn's disease of small intestine with intestinal obstruction: Code(s): K50.012 - Crohn's disease of small intestine with intestinal obstruction Status: Acute Assessment and Plan: patient is seen by GI and and surgery service further recommendation to follow DS: Summary Hospital Course Reason for hospitalization: patient is a 44-year-old male with history of Crohn disease presented emergency department with a complaint abdominal for last 2 days and symptoms were progressive getting worse and presented emergency department further evaluate, patient had CT scan of the abdomen showed: 8 cm segment of wall thickening and stricturing in the distal small bowel resulting in small bowel obstruction, most consistent with Crohn disease. patient is clinically stable no significant nausea or vomiting, patient was started on Zosyn, Solu-Medrol, NPO, IVF, and pain management, patient will be seen by general surgery and GI and further recommendation to follow. Chief Complaint: abdominal pain Hospital Course: patient is a 44-year-old male with history of Crohn disease presented emergency department with a complaint abdominal for last 2 days and symptoms were progressive getting worse and presented emergency department further evaluate, patient had CT scan of the abdomen showed: 8 cm segment of wall thickening and stricturing in the distal small bowel resulting in small bowel obstruction, most consistent with Crohn disease. patient is clinically stable no significant nausea or vomiting, patient was started on Zosyn, Solu-Medrol, NPO, IVF, and pain management, patient will be seen by general surgery and GI and further recommendation to follow. 09/04 today patient states pain is better his passing gas, he still has NG tube output, patient was seen by GI recommended biologic treatment for Crohn disease however patient is refusing and prefers having surgery, patient seen by surgery team recommending to continue steroid,
[2020-09-06 14:00] VITALS: BP 137/93; PULSE 66; RESP 20; TEMP 36.6; O2SAT 97
== END 2020-09-06 16:45 | disposition home or self-care (01) | DRG 387 ==
LOC: ANHED 07:18 → ANH3MEDSUR 07:59
PROVIDERS: Admitting Provider Internal Medicine; Emergency Provider Emergency Medicine; PCP Family Medicine; Visit Provider Family Medicine
DX: K50.012 Crohn's disease of small intestine with intestinal obstruction (principal); F17.210 Nicotine dependence, cigarettes, uncomplicated; F17.220 Nicotine dependence, chewing tobacco, uncomplicated; Z79.899 Other long term (current) drug therapy; Z90.49 Acquired absence of other specified parts of digestive tract
CPT/HCPCS: 36415; 74018; 74177; 74250; 80053; 81001; 83605; 83690; 83735; 85025; 85027; 96361; 96374; 96375; 96376; 99285; A9270; C9113; G0378; J2270; J2405; J2920; J2930; J3475; J3480; J7030; Q9967

== ENCOUNTER 2020-10-02 11:42 | Outpatient (CLI) | payer BC, SELFPAY ==
--- NOTE | 2020-10-02 12:21 | ECG_ITS ---
Measurements Intervals [place] Rate: 79 P: -1 TX: 174 QRS: -5 QRSD: 81 T: 7 QT: 342 QTc: 393 Interpretive Statements SINUS RHYTHM DELAYED PRECORDIAL R/S TRANSITION VOLTAGE CRITERIA FOR LVH MINIMAL Q WAVES- HIGH LATERAL LEADS BORDERLINE T WAVE ABNORMALITY- INFERIOR LEADS BORDERLINE ECG Electronically Signed On 10-02-2020 12:31:48 CDT by Troy Moe D.O.
== END 2020-10-02 11:43 | disposition home or self-care (01) ==
LOC: ANHSURGERY 11:45
PROVIDERS: PCP Family Medicine; Visit Provider Surgery
DX: Z01.818 Encounter for other preprocedural examination (principal); K50.90 Crohn's disease, unspecified, without complications; Z87.19 Personal history of other diseases of the digestive system
CPT/HCPCS: 36415; 86850; 86900; 86901; 93005

== ENCOUNTER → 2020-10-06 01:10 | Outpatient (CLI) | payer BC, SELFPAY ==
[2020-10-06 19:43] LABS: SARS-CoV-2 RNA PCR Negative
== END ==
PROVIDERS: PCP Family Medicine; Visit Provider Surgery
DX: Z01.812 Encounter for preprocedural laboratory examination (principal); Z20.822 Contact with and (suspected) exposure to COVID-19
CPT/HCPCS: C9803; U0003; U0005

== ENCOUNTER 2020-10-10 16:05 | Inpatient (IN) | payer BC, SELFPAY ==
[2020-10-02 12:03] VITALS: BP 152/104; PULSE 82; RESP 20; TEMP 36.9; O2SAT 100
[2020-10-10] VITALS (11 sets, daily range): BP systolic 116–136; BP diastolic 72–101; PULSE 58–117; RESP 12–22; TEMP 36.2–36.8; O2SAT 94–100
[2020-10-10] MEDS: ACETAMINOPHEN 500 MG TABLET 1000 MG PO (08:50)
[2020-10-10] MEDS: LACTATED RINGERS 1,000 ML 30 ML IV CONT ×2 (09:04→14:53)
[2020-10-10] MEDS: KETOROLAC 15 MG/ML VIAL (*BKC) IV PUSH (09:05)
--- NOTE | 2020-10-10 09:06 | WPDANESEPPF ---
Anes - Initial Pre Proc Eval Procedure: Operation Date: 10/10/20 10:30 Proposed Procedures p Hand Assisted Laparoscopic Ileocolic Resection, Possible Open - Mahendra Magana DO Date/Time: 10/10/20 09:06 Surgeon: Mahendra Magana DO Pre Op Diagnosis: Chrohn's disease Patient Data Age: 44 Gender: M Height: Weight: Last Vital Signs Temp 36.9 C 10/02/20 12:03 Pulse 82 10/02/20 12:03 Resp 20 10/02/20 12:03 BP 152/104 H 10/02/20 12:03 Pulse Ox 100 10/02/20 12:03 Allergies Allergy/AdvReac Type Severity Reaction Status Date / Time No Known Allergies Allergy Verified 10/02/20 12:00 Home Medications Medication Instructions Recorded Confirmed Type mecobalamin (vitamin B12) 1,000 mcg PO DAILY 04/05/19 10/10/20 History prednisone 10 mg PO DAILY #70 tablet 09/06/20 10/10/20 Rx erythromycin 500 mg tablet 1 g PO .COMPLEX #6 tablet 09/14/20 10/10/20 Rx neomycin 500 mg tablet 1 g PO .COMPLEX #6 tablet 09/14/20 10/10/20 Rx azathioprine 100 mg PO QAM 10/02/20 10/10/20 History Patient hx anesthesia problems: none Family hx anesthesia problems: none PMFSH Past Medical History Medical History History of Crohn's disease Lower abdominal pain Partial small bowel obstruction Surgical History Surgical History History of resection of small bowel 1997 Ileocecectomy Family History Family History Father Hypertension Father Hypertension Family history of elevated blood lipids Social History Social History Smoking packs per day: 0.20 Smoking cigarettes per day: 4.0 Years smoked: 24 Smoking pack-years: 4.80 Smoking status: Former smoker Tobacco type: cigarettes Smokeless tobacco user: chewing tobacco Second hand tobacco smoke exposure: Yes Additional smoking assessment comments: will order gum Alcohol intake: current Drinks per week: 1 Substance use: never Substance use type: does not use Living arrangements: with family Gender identity (if verbalized by the patient): Male Spiritual care concerns: No Agree to blood products: No Anes - Eval Final PreProcedure Day of Procedure 10/10/20 09:06 Patient weight: obese Heart: regular rate and rhythm Lungs: clear to auscultation and normal air movement Airway: Mallampati scale class II Neurological: alert and oriented Last oral intake: >/= 8 hours ASA classification: III Emergent: no Anesthetic plan: proceed Anesthesia type and monitoring: general ETT and standard monitoring Informed Consent: The patient's anesthetic plan and its attendant risks and benefits were discussed with the patient/family/POA. Questions were solicited and answers provided to the satisfaction of the patient/family/POA.
--- NOTE | 2020-10-10 10:31 | WPDHPUPDATE1 ---
History and Physical Update Update Date/Time: 10/10/20 10:31 History and Physical has been reviewed, including an updated exam of the patient. There are NO changes in the patient's condition. Risks, benefits, and alternatives have been discussed and questions answered. Patient agrees to proceed with procedure.
[2020-10-10] MEDS: ceFAZolin 2 GM/D5W 50 ML 2 GM/50 ML BAG IVPB (11:12)
--- NOTE | 2020-10-10 12:42 | SUR.OPER ---
OPEN LAPAROTOMY AT 12:42.
--- NOTE | 2020-10-10 14:56 | PM.PROC ---
Procedure Note - Detailed Date of procedure: 10/10/20 Pre-op diagnosis: Chrohn's disease Post-op diagnosis: same Procedure performed: 1. Attempted hand assisted laparoscopic ileocolic resection 2. Open ileocolic resection with side to side ileocolic anastomosis 3. Extensive adhesiolysis Description of procedure: Procedure as well as risks, benefits, and alternatives were discussed with the patient. Written consent was obtained placed in chart prior to procedure. Patient was brought back to surgical suite. He was placed supine on operating table. Time-out was done to confirm patient and procedure. He was then intubated by the Anesthesia Department. His abdomen was prepped and draped in sterile fashion using chlorhexidine prep. A 7 cm vertical midline incision was made just superior to the umbilicus using a 15 blade scalpel. Electrocautery was used for hemostasis and for dissection down through Sebastián's fascia. The linea alba was then incised using electrocautery. The peritoneum was also entered using electrocautery. There were a few omental adhesions that were taken down using electrocautery and blunt dissection. I then placed the Terrence wound protector at the incision and then applied the GelPort with a 5 mm port placed through it. Carbon dioxide insufflation was then used to create a pneumoperitoneum. The camera was inserted the abdomen was inspected there were still some adhesions in the lower abdomen, but these appeared mostly omentum up to the abdominal wall. A 5 mm port was placed in the left lower quadrant and these omental adhesions were taken down using LigaSure bipolar cautery. I then placed another 5 mm port in the supra pubic region the patient was placed in Trendelenburg position rotated slightly to the left. Careful inspection of the abdominal cavity was performed. There were a few more omental adhesions that were taken down to allow the omentum to the right reflected cephalad over the stomach. I then attempted to identify the previous ileocolic anastomosis, but due to extensive adhesions, this was difficult to perform laparoscopically. I eventually had to convert to an open procedure. The ports were removed and the GelPort wound protector were removed. The midline incision was then extended to about 15 cm extending just below the umbilicus. Electrocautery was used to dissect the subcu space and open the midline fascia. A large Terrence wound protector was then placed and then the abdominal cavity was further inspected. I was able to identify the transverse colon and traced this to the hepatic flexure. The hepatic flexure was carefully taken down using LigaSure bipolar cautery. I was then able to identify the segment of small bowel entering into the hepatic flexure where the previous anastomosis was. There were still more small bowel adhesions up to this area and 1 segment of the small bowel was adherent right up to the segment of inflamed ileum. As these adhesions were carefully taken down I did identify an enterotomy on the segment of bowel that was to be removed due to the Crohn's disease. I placed a [id number] 3 0 Vicryl suture over this area to contain any significant spillage. The distal ileum was further freed up along the right upper quadrant to the point where I was able to be exteriorized the previous anastomosis through the midline incision. I then identified a point on the ileum that appeared healthy and viable and chose this as the transection point proximally. A window was created in the mesentery and then a JOHN 75 mm blue load stapler was advanced across the ileum at this point and it was clamped and fired. I then also identified an area along the transverse colon that appeared appropriate for our anastomosis. A window was created in the mesocolon along this location and a JOHN 75 mm blue load stapler was advanced across the transverse colon at this point and the stapler was clamped and fired. The mesocolon and mesentery
[2020-10-10] MEDS: fentaNYL CITRATE INJ (*CRX) 100 MCG/2 ML VIAL 25 MCG IV PUSH ×4 (15:12→15:25)
[2020-10-10] MEDS: HYDROmorphone HCL INJ (*CRX) 1 MG/ML SYR 0.5 MG IV PUSH ×2 (15:32→15:40)
--- NOTE | 2020-10-10 16:15 | ADMGEN ---
This patient, Noe Webb II, was admitted to Medical Room 343-01. Patient/family oriented to hospital policies and general routines including ID bracelet, bed and alarms, visiting hours, pain management, procedures, bathroom and other care routines, personal items, smoking policy, room service/diet, and visiting hours. Information on how to activate the Rapid Response Team has been discussed. Patient/Family are encouraged to report perceived risks to care and to ask questions if they do not understand what they are told or what they should do.
[2020-10-10] MEDS: HYDROmorphone HCL INJ (*CRX) 1 MG/ML SYR IV PUSH ×4 (16:51→23:17)
[2020-10-10] MEDS: LACTATED RINGERS 1,000 ML 100 ML IV CONT (16:51)
[2020-10-10 16:57] LABS: Estimated Glomerular Filt Rate 41
[2020-10-10] MEDS: ACETAMINOPHEN 500 MG TABLET PO ×2 (18:15→23:16)
[2020-10-10] MEDS: IBUPROFEN IV 800 MG/200 ML 800 MG/200 ML BAG 400 MG IVPB (22:42)
[2020-10-11] MEDS: HYDROmorphone HCL INJ (*CRX) 1 MG/ML SYR IV PUSH ×6 (03:13→20:28)
[2020-10-11] MEDS: LACTATED RINGERS 1,000 ML 100 ML IV CONT (04:15)
[2020-10-11 04:21] VITALS: BP 123/74; PULSE 70; RESP 18; TEMP 36.1; O2SAT 95
[2020-10-11] MEDS: ACETAMINOPHEN 500 MG TABLET PO ×4 (05:48→23:18)
[2020-10-11 05:54] LABS: Basophils Percent Auto 0.5 % (0.2-1.2); Eosinophils Percent Auto 0.4 % (0-4.4); Hematocrit 37.8 % (42.0-52.0); Hemoglobin 12.9 g/dL (14.0-18.0); Immature Granulocyte Absolute 0.03 K/mm3 (0.00-0.031); Immature Granulocyte Percent A 0.4 % (0-0.5); Lymphocytes Absolute Auto 0.95 K/mm3 (0.9-3.2); Lymphocytes Percent Auto 12.1 % (18.3-44.2); Mean Corpuscular HGB Conc 34.1 g/dl (32-36); Mean Corpuscular Hemoglobin 31.5 pg (26-34); Mean Corpuscular Volume 92.4 fl (80-100); Mean Platelet Volume 8.5 fl (7.4-10.4); Monocytes Absolute Auto 0.9 K/mm3 (0.1-0.6); Monocytes Percent Auto 11.7 % (2.6-8.5); Neutrophils Absolute Auto 5.9 K/mm3 (1.3-6.7); Neutrophils Percent Auto 74.9 % (45.5-73.1); Platelet Count Result 225 k/mm3 (150-375); Red Blood Count 4.09 M/mm3 (4.6-6.20); Red Cell Distribution Width 13.7 % (11.5-14.5); White Blood Count 7.8 K/mm3 (4.5-10.0)
[2020-10-11 06:10] LABS: Anion Gap 3 mmol/L (8-16); Blood Urea Nitrogen 11 mg/dL (9-20); Calcium 7.9 mg/dL (8.4-10.2); Carbon Dioxide 28 mmol/L (22-30); Chloride 106 mmol/L (98-107); Estimated CRCL calculation 74 ml/min; Estimated Glomerular Filt Rate 51; Glucose 105 mg/dL (75-110); Potassium 3.2 mmol/L (3.4-5.0); Sodium 137 mmol/L (137-145)
[2020-10-11] MEDS: IBUPROFEN IV 800 MG/200 ML 800 MG/200 ML BAG 400 MG IVPB ×3 (06:29→22:37)
[2020-10-11] MEDS: ENOXAPARIN 40 MG/0.4 ML SYRINGE SUB-Q (09:40)
[2020-10-11 09:50] VITALS: BP 134/90; PULSE 67; RESP 20; TEMP 36; O2SAT 98
--- NOTE | 2020-10-11 09:58 | PM.PNGS ---
Progress Note: A&P Assessment and Plan (1) Partial small bowel obstruction: Code(s): K56.600 - Partial intestinal obstruction, unspecified as to cause Status: Acute Assessment and Plan: POD#1 attempted KIM, converted to open ileocolic resection with extensive adhesiolysis Patient doing well today. Main complaint is abdominal soreness but pain seems to be fairly well controlled. Continue clear liquid diet. Await return of bowel function. Remove Tran catheter. Encouraged increased activity, walking the halls, IS use (2) Crohn's disease of small intestine with intestinal obstruction: Code(s): K50.012 - Crohn's disease of small intestine with intestinal obstruction Status: Acute Assessment and Plan: Pathology pending Additional Plan I have discussed the plan of care with Dr. Magana. K 3.2 today, supplemented with KCL IV. Creatinine 1.5, improving from yesterday. Continue IV fluids. Repeat labs tomorrow morning. Subjective Subjective Date/Time Seen: 10/11/20 09:58 Post Op day: 1 (attempted KIM, converted to open ileocolic resection, extensive adhesiolysis) Patient reports: still having pain, tolerating liquids well, no flatus and no bowel movement Interval history: Patient doing well this morning. Denies nausea or vomiting. Reports feeling very sore this morning with postoperative abdominal pain. He reports pain medication has been helping. No other complaints at this time. Was up to chair last night and walked around the room. Review of Systems Review of Systems: All systems reviewed & are unremarkable except as noted in HPI and below Constitutional: Constitutional: Reports as per HPI, Reports no additional constitutional complaints, Denies chills and Denies fever(s) Cardiovascular: Cardiovascular: Reports no additional cardiovascular complaints, Denies chest pain and Denies leg edema Respiratory: Respiratory: Reports no additional respiratory complaints, Denies cough and Denies dyspnea Gastrointestinal: Gastrointestinal: Reports as per HPI Exam Const: General: comfortable, no acute distress, alert and awake Orientation/consciousness: patient oriented x3 Resp: Effort & Inspection: normal respiratory effort Auscultation: clear to auscultation bilaterally Cardio: Rate: regular rate Rhythm: regular rhythm GI: Inspection: non-distended and incision (Abdominal dressing clean and dry, minimal shadow drainage) GI Palp: Yes Soft to palpation and Yes Tenderness to palpation present (GI) (Appropriate postop tenderness) Auscultation: Hypoactive bowel sounds present Skin: General skin exam: normal color Neuro: General: moves all extremities and no focal motor deficits Extrem: General: no clubbing, cyanosis or edema and no calf tenderness Psych: Mental Status: mental status grossly normal Insight: Good insight present (Psych) Judgement: Good judgement present (Psych) Objective Data Vital Signs Vital Signs: Vital Signs - 24 hr 10/10/20 14:53 10/10/20 15:05 10/10/20 15:20 Temperature 98.3 F Pulse Rate 66 91 58 L Respiratory Rate 18 13 13 Blood Pressure 136/83 124/72 123/88 Pulse Oximetry 100 100 100 10/10/20 15:35 10/10/20 15:50 10/10/20 16:29 Temperature 98.1 F Pulse Rate 88 93 104 H Respiratory Rate 12 19 18 Blood Pressure 130/84 117/82 117/76 Pulse Oximetry 97 95 100 10/10/20 16:50 10/10/20 17:50 10/10/20 20:28 Temperature 97.1 F L 97.8 F 98 F Pulse Rate 98 100 105 H Respiratory Rate 20 20 22 H Blood Pressure 117/79 116/74 131/75 Pulse Oximetry 100 99 94 10/10/20 23:47 10/11/20 04:21 10/11/20 09:50 Temperature 98.3 F 97 F L 96.8 F L Pulse Rate 100 70 67 Respiratory Rate 17 18 20 Blood Pressure 119/73 123/74 134/90 Pulse Oximetry 95 95 98 Intake/Output Intake/Output: Intake & Output 10/08/20 10/09/20 10/10/20 10/11/20 23:59 23:59 23:59 23:59 Intake Total 1630 2182 Output Total 330 1650 Balance 1300 532 Meds/Results
[2020-10-11 11:43] VITALS: BMI 32.0
--- NOTE | 2020-10-11 13:31 | WPDANESPN ---
Anes - Prog Note Post-Op Date/Time: 10/11/20 13:31 Cardiovascular status: normal Respiratory status: normal Airway patency: baseline Mental status: baseline Post-Op hydration status: normal Vital Signs: Last Vital Signs Temp 36.0 C L 10/11/20 09:50 Pulse 67 10/11/20 09:50 Resp 20 10/11/20 09:50 BP 134/90 10/11/20 09:50 Pulse Ox 98 10/11/20 09:50 Pain Score (VAS): 10 I/O: Intake & Output 10/10/20 10/11/20 10/11/20 23:59 07:59 15:59 Intake Total 980 1825 407 Output Total 300 1650 Balance 680 175 407 Laboratory Tests 10/11/20 05:37 10/11/20 05:37 10/10/20 10/11/20 10/11/20 16:23 05:37 05:37 WBC 7.8 RBC 4.09 L Hgb 12.9 L Hct 37.8 L MCV 92.4 MCH 31.5 MCHC 34.1 RDW 13.7 Plt Count 225 MPV 8.5 Immature Gran % (Auto) 0.4 Neut % (Auto) 74.9 H Lymph % (Auto) 12.1 L [place] % (Auto) 11.7 H Eos % (Auto) 0.4 Baso % (Auto) 0.5 Lymph # (Auto) 0.95 [place] # (Auto) 0.9 H Eos # (Auto) 0.0 Baso # (Auto) 0.0 Abs Immat Gran (auto) 0.03 Absolute Neuts (auto) 5.9 Absolute Nucleated RBC 0.0 Nucleated RBC % 0.0 Sodium 137 Potassium 3.2 L Chloride 106 Carbon Dioxide 28 Anion Gap 3 L BUN 11 Creatinine 1.80 H 1.50 H Estim Creat Clear Calc Not Reportable 74 Estimated GFR 41 L 51 L Glucose 105 Calcium 7.9 L Post-procedural complaints: none Patient Feedback: Patient satisfied with anesthetic care.
[2020-10-11 13:50] VITALS: BP 154/90; PULSE 79; RESP 20; TEMP 35.9; O2SAT 97
[2020-10-11] MEDS: HYDROmorphone HCL INJ (*CRX) 1 MG/ML SYR 0.5 MG IV PUSH ×2 (17:35→22:38)
[2020-10-11] MEDS: MELATONIN 5 MG TABLET PO (20:28)
[2020-10-11 21:39] VITALS: BP 139/88; PULSE 94; RESP 16; TEMP 37.1; O2SAT 100
[2020-10-12] MEDS: HYDROmorphone HCL INJ (*CRX) 1 MG/ML SYR IV PUSH ×3 (03:23→13:06)
[2020-10-12] MEDS: diphenhydrAMINE HCl CAP 25 MG CAPSULE PO (03:24)
[2020-10-12 06:23] LABS: Hematocrit 34.2 % (42.0-52.0); Hemoglobin 11.4 g/dL (14.0-18.0); Mean Corpuscular HGB Conc 33.3 g/dl (32-36); Mean Corpuscular Hemoglobin 31.7 pg (26-34); Mean Platelet Volume 8.8 fl (7.4-10.4); Platelet Count Result 211 k/mm3 (150-375); Red Cell Distribution Width 13.5 % (11.5-14.5); White Blood Count 8.4 K/mm3 (4.5-10.0)
[2020-10-12] MEDS: ACETAMINOPHEN 500 MG TABLET PO (06:28)
[2020-10-12] MEDS: IBUPROFEN IV 800 MG/200 ML 800 MG/200 ML BAG 400 MG IVPB ×2 (06:28→13:03)
[2020-10-12 06:38] LABS: Anion Gap 3 mmol/L (8-16); Blood Urea Nitrogen 10 mg/dL (9-20); Calcium 8.2 mg/dL (8.4-10.2); Carbon Dioxide 28 mmol/L (22-30); Chloride 108 mmol/L (98-107); Estimated CRCL calculation 100 ml/min; Estimated Glomerular Filt Rate > 60; Glucose 110 mg/dL (75-110); Potassium 3.3 mmol/L (3.4-5.0); Sodium 139 mmol/L (137-145)
[2020-10-12] MEDS: ENOXAPARIN 40 MG/0.4 ML SYRINGE SUB-Q (07:41)
[2020-10-12 08:45] VITALS: BP 139/91; PULSE 71; RESP 16; TEMP 36.1; O2SAT 98
--- NOTE | 2020-10-12 09:50 | PM.PNGS ---
Progress Note: A&P Assessment and Plan (1) Crohn's disease of small intestine with intestinal obstruction: Code(s): K50.012 - Crohn's disease of small intestine with intestinal obstruction Status: Acute Assessment and Plan: Advance to full liquids today Increase activity Possibly home tomorrow if doing well. (2) Hypokalemia: Code(s): E87.6 - Hypokalemia Status: Acute Assessment and Plan: Replace K+ Subjective Subjective Date/Time Seen: 10/12/20 09:50 Interval history: Bowels moving. Tolerating clear liquids. Pain better controlled. He has been up ambulating in halls. Exam GI: Inspection: non-distended and incision (intact with leslie. minimal bloody drainage.) GI Palp: Yes Tenderness to palpation present (GI) (incisional) Auscultation: normal bowel sounds Objective Data Vital Signs Vital Signs: Vital Signs - 24 hr 10/11/20 13:50 10/11/20 21:39 10/12/20 08:45 Temperature 35.9 C L 37.1 C 36.1 C L Pulse Rate 79 94 71 Respiratory Rate 20 16 16 Blood Pressure 154/90 H 139/88 139/91 H Pulse Oximetry 97 100 98 Intake/Output Intake/Output: Intake & Output 10/09/20 10/10/20 10/11/20 10/12/20 23:59 23:59 23:59 23:59 Intake Total 1630 4689 990 Output Total 330 2550 Balance 1300 2139 990 Meds/Results Medications: Active Medications Generic Name Dose Route Start Last Admin Trade Name Freq PRN Reason Stop Dose Admin Acetaminophen 500 mg 10/12/20 08:13 Acetaminophen 500 Mg Tablet PO Q6HR PRN Mild Pain (1-3) or Fever Hydrocodone Bitart/Acetaminophen 1 tab 10/12/20 08:12 Hydrocodone/Acetaminophen (*Crx) 10-325 Mg Tablet PO Q4H PRN Pain Rated 7-10 Hydrocodone Bitart/Acetaminophen 1 tab 10/12/20 08:12 Hydrocodone/Acetaminophen (*Crx) 5-325 Mg Tablet PO Q4H PRN Pain Rated 4-6 Diphenhydramine HCl 25 mg 10/11/20 15:42 10/12/20 03:24 Diphenhydramine Hcl Cap 25 Mg Capsule PO 25 mg BEDTIME PRN Administration Sleep Enoxaparin Sodium 40 mg 10/11/20 09:00 10/12/20 07:41 Enoxaparin 40 Mg/0.4 Ml Syringe SUB-Q 40 mg DAILY JUSTINE Administration Hydromorphone HCl 1 mg 10/10/20 16:05 10/12/20 07:41 Hydromorphone Hcl Inj (*Crx) 1 Mg/Ml Syr IV PUSH 1 mg Q2H PRN Administration Pain Rated 7-10 Hydromorphone HCl 0.5 mg 10/10/20 16:05 10/11/20 22:38 Hydromorphone Hcl Inj (*Crx) 1 Mg/Ml Syr IV PUSH 0.5 mg Q2H PRN Administration Pain Rated 4-6 Ibuprofen 800 mg in 200 mls @ 400 mls/hr 10/10/20 22:00 10/12/20 07:00 Caldolor 800 Mg/200 Ml IVPB 10/12/20 14:29 Infused Q8HR JUSTINE Infusion Piperacillin/Tazobactam/Dextrose 3.375 gm in 50 mls @ 100 mls/hr 10/10/20 18:00 10/12/20 07:34 Zosyn 3.375 Gm/D5w 50ml Pm IVPB Infused Q6HR JUSTINE Infusion Melatonin 5 mg 10/11/20 21:00 10/11/20 20:28 Melatonin 5 Mg Tablet PO 5 mg HS JUSTINE Administration Ondansetron HCl 4 mg 10/10/20 16:05 Ondansetron Inj 4 Mg/2 Ml Vial IV PUSH Q4H PRN Nausea And Vomiting Labs Labs: Laboratory Results - last 24 hr 10/12/20 10/12/20 05:52 05:52 WBC 8.4 RBC 3.60 L Hgb 11.4 L Hct 34.2 L MCV 95.0 MCH 31.7 MCHC 33.3 RDW 13.5 Plt Count 211 MPV 8.8 Sodium 139 Potassium 3.3 L Chloride 108 H Carbon Dioxide 28 Anion Gap 3 L BUN 10 Creatinine 1.10 Estim Creat Clear Calc 100 Estimated GFR > 60 Glucose 110 Calcium 8.2 L Quality VTE Prophylaxis VTE prophylaxis: pharmacologic ordered
[2020-10-12] MEDS: HYDROcodone/acetaminophen (*CRX) 10-325 MG TABLET 1 TAB PO ×3 (10:31→22:17)
[2020-10-12] MEDS: POTASSIUM CHLORIDE 20 MEQ TABLET 40 MEQ PO (10:33)
[2020-10-12 14:57] VITALS: BP 140/95; PULSE 83; RESP 16; TEMP 36.4; O2SAT 97
[2020-10-12] MEDS: MELATONIN 5 MG TABLET PO (20:44)
[2020-10-12 20:59] VITALS: BP 145/93; PULSE 85; RESP 16; TEMP 36.3; O2SAT 100
[2020-10-12 21:57] VITALS: TEMP 37.3
[2020-10-12] MEDS: ONDANSETRON INJ 4 MG/2 ML VIAL IV PUSH (22:16)
[2020-10-13] MEDS: HYDROmorphone HCL INJ (*CRX) 1 MG/ML SYR IV PUSH ×2 (01:17→06:57)
[2020-10-13] MEDS: HYDROcodone/acetaminophen (*CRX) 10-325 MG TABLET 1 TAB PO ×2 (04:49→15:17)
[2020-10-13 06:00] VITALS: BP 147/97; PULSE 92; RESP 16; TEMP 36; O2SAT 96
[2020-10-13 06:44] LABS: Hematocrit 37.1 % (42.0-52.0); Hemoglobin 12.8 g/dL (14.0-18.0); Mean Corpuscular HGB Conc 34.5 g/dl (32-36); Mean Corpuscular Hemoglobin 31.6 pg (26-34); Mean Corpuscular Volume 91.6 fl (80-100); Mean Platelet Volume 8.6 fl (7.4-10.4); Platelet Count Result 288 k/mm3 (150-375); Red Blood Count 4.05 M/mm3 (4.6-6.20); Red Cell Distribution Width 13.3 % (11.5-14.5); White Blood Count 10.5 K/mm3 (4.5-10.0)
[2020-10-13 06:55] LABS: Anion Gap 4 mmol/L (8-16); Blood Urea Nitrogen 7 mg/dL (9-20); Calcium 9.1 mg/dL (8.4-10.2); Carbon Dioxide 32 mmol/L (22-30); Chloride 102 mmol/L (98-107); Estimated CRCL calculation 102 ml/min; Estimated Glomerular Filt Rate > 60; Glucose 142 mg/dL (75-110); Potassium 3.3 mmol/L (3.4-5.0); Sodium 138 mmol/L (137-145)
[2020-10-13] MEDS: ENOXAPARIN 40 MG/0.4 ML SYRINGE SUB-Q (08:37)
--- NOTE | 2020-10-13 09:21 | PM.PNGS ---
Progress Note: A&P Assessment and Plan (1) Crohn's disease of small intestine with intestinal obstruction: Code(s): K50.012 - Crohn's disease of small intestine with intestinal obstruction Status: Acute Assessment and Plan: pain better this am, encourage OOB/IS, po analgesia, cont diet as jacinta, prob home tomorrow Subjective Subjective Date/Time Seen: 10/13/20 09:21 severe pain overnight, better this am after IV analgesia, had some pizza last night Review of Systems Review of Systems: All systems reviewed & are unremarkable except as noted in HPI and below Exam Const: General: cooperative, comfortable and no acute distress Resp: Effort & Inspection: normal respiratory effort Auscultation: clear to auscultation bilaterally Cardio: Rate: regular rate Rhythm: regular rhythm GI: Inspection: normal to inspection, distended and incision GI Palp: Yes Soft to palpation and Yes Tenderness to palpation present (GI) Other: soft, sl dist, toby TTP, incision C/D/I Objective Data Vital Signs Vital Signs: Vital Signs - 24 hr 10/12/20 14:57 10/12/20 20:59 10/12/20 21:57 Temperature 36.4 C L 36.3 C L 37.3 C Pulse Rate 83 85 Respiratory Rate 16 16 Blood Pressure 140/95 H 145/93 H Pulse Oximetry 97 100 10/13/20 06:00 Temperature 36.0 C L Pulse Rate 92 Respiratory Rate 16 Blood Pressure 147/97 H Pulse Oximetry 96 Intake/Output Intake/Output: Intake & Output 10/10/20 10/11/20 10/12/20 10/13/20 23:59 23:59 23:59 23:59 Intake Total 1630 4689 1890 450 Output Total 330 2550 550 Balance 1300 2139 1340 450 Meds/Results Medications: Active Medications Generic Name Dose Route Start Last Admin Trade Name Freq PRN Reason Stop Dose Admin Acetaminophen 500 mg 10/12/20 08:13 Acetaminophen 500 Mg Tablet PO Q6HR PRN Mild Pain (1-3) or Fever Hydrocodone Bitart/Acetaminophen 1 tab 10/12/20 08:12 10/13/20 04:49 Hydrocodone/Acetaminophen (*Crx) 10-325 Mg Tablet PO 1 tab Q4H PRN Administration Pain Rated 7-10 Hydrocodone Bitart/Acetaminophen 1 tab 10/12/20 08:12 Hydrocodone/Acetaminophen (*Crx) 5-325 Mg Tablet PO Q4H PRN Pain Rated 4-6 Diphenhydramine HCl 25 mg 10/11/20 15:42 10/12/20 03:24 Diphenhydramine Hcl Cap 25 Mg Capsule PO 25 mg BEDTIME PRN Administration Sleep Enoxaparin Sodium 40 mg 10/11/20 09:00 10/13/20 08:37 Enoxaparin 40 Mg/0.4 Ml Syringe SUB-Q 40 mg DAILY JUSTINE Administration Hydromorphone HCl 1 mg 10/10/20 16:05 10/13/20 06:57 Hydromorphone Hcl Inj (*Crx) 1 Mg/Ml Syr IV PUSH 1 mg Q2H PRN Administration Pain Rated 7-10 Hydromorphone HCl 0.5 mg 10/10/20 16:05 10/11/20 22:38 Hydromorphone Hcl Inj (*Crx) 1 Mg/Ml Syr IV PUSH 0.5 mg Q2H PRN Administration Pain Rated 4-6 Piperacillin/Tazobactam/Dextrose 3.375 gm in 50 mls @ 100 mls/hr 10/10/20 18:00 10/13/20 06:49 Zosyn 3.375 Gm/D5w 50ml Pm IVPB Infused Q6HR JUSTINE Infusion Melatonin 5 mg 10/11/20 21:00 10/12/20 20:44 Melatonin 5 Mg Tablet PO 5 mg HS JUSTINE Administration Ondansetron HCl 4 mg 10/10/20 16:05 10/12/20 22:16 Ondansetron Inj 4 Mg/2 Ml Vial IV PUSH 4 mg Q4H PRN Administration Nausea And Vomiting Labs Labs: Laboratory Results - last 24 hr 10/13/20 10/13/20 06:34 06:34 WBC 10.5 H RBC 4.05 L Hgb 12.8 L Hct 37.1 L MCV 91.6 MCH 31.6 MCHC 34.5 RDW 13.3 Plt Count 288 MPV 8.6 Sodium 138 Potassium 3.3 L Chloride 102 Carbon Dioxide 32 H Anion Gap 4 L BUN 7 L Creatinine 1.10 Estim Creat Clear Calc 102 Estimated GFR > 60 Glucose 142 H Calcium 9.1 Quality VTE Prophylaxis VTE prophylaxis: pharmacologic ordered
[2020-10-13] MEDS: HYDROcodone/acetaminophen (*CRX) 5-325 MG TABLET 1 TAB PO ×2 (11:28→20:40)
[2020-10-13 14:00] VITALS: BP 135/99; PULSE 88; RESP 20; TEMP 36.6; O2SAT 100
[2020-10-13 20:28] VITALS: BP 159/97; PULSE 76; RESP 16; TEMP 36.8; O2SAT 100
[2020-10-13] MEDS: MELATONIN 5 MG TABLET PO (20:40)
[2020-10-14] MEDS: HYDROcodone/acetaminophen (*CRX) 10-325 MG TABLET 1 TAB PO ×2 (01:22→11:01)
[2020-10-14 05:42] VITALS: BP 146/98; PULSE 60; RESP 16; TEMP 36.7; O2SAT 99
[2020-10-14] MEDS: HYDROcodone/acetaminophen (*CRX) 5-325 MG TABLET 1 TAB PO (05:43)
[2020-10-14] MEDS: ENOXAPARIN 40 MG/0.4 ML SYRINGE SUB-Q (09:13)
--- NOTE | 2020-10-14 10:44 | PM.DS ---
DS: Admitting Diagnosis Admitting Diagnosis Admitting Diagnosis: Crohns' disease, stricture DS: Discharge Diagnosis Discharge Diagnosis (1) Crohn's disease of small intestine with intestinal obstruction: Code(s): K50.012 - Crohn's disease of small intestine with intestinal obstruction Status: Acute DS: Summary Hospital Course Reason for hospitalization: Crohns' diseases, recurrent SBO Hospital Course: Pt is a 44 y/o M c h/o Crohns' disease. Pt had previous ileocolic resection approx 10 yrs ago. Pt now presenting c recurrent SBO secondary to stricture in distal ileum. Pt taken to OR for ileocolic resection by Dr. Magana on 10/10, please see op note for details. Pt has done well postoperatively on the surgical floor. Pt has had return of bowel fxn, and now tolerating a regular diet. Pt has had gradual improvement of pain and now controlled c po analgesics. Pt has been up and ambulating s issue. Pt will be dc'd home c po analgesia and Colace. He will f/u c Dr. Magana in 1 wk for staple removal. Status at Discharge Functional status at discharge: independent ambulation Overall status at discharge: patient is progressing back to baseline Time Spent with Patient Time attestation: Total time spent providing and/or coordinating discharge services: Exam Const: General: cooperative, comfortable and no acute distress Orientation/consciousness: patient oriented x3 Resp: Effort & Inspection: normal respiratory effort Auscultation: clear to auscultation bilaterally Cardio: Rate: regular rate Rhythm: regular rhythm GI: Inspection: normal to inspection, distended and incision GI Palp: Yes Soft to palpation, Yes Tenderness to palpation present (GI) and No Guarding due to palpation present (GI) Other: soft, sl dist, toby TTP, incision C/D/I DS: Data Data Completed and Pending Completed studies during hospitalization: Pending at discharge 10/10/20 13:51 Surgical [PTH] Routine Discharge Plan Discharge Attending physician on discharge: Mahendra Magana Discharging Clinician: Ladi May Anticipated Discharge Date/Time: 10/14/20 10:40 Patient Disposition: Home, Self-Care Activity: may shower and no straining Diet: as tolerated Wound Care Instructions: incision open to air Patient Instructions: Antibiotic Form, Pain Management (DC), Colectomy Diet (DC), Smokeless Tobacco Keratosis (DC), Colectomy (DC) Stand Alone Forms: General Discharge Information Follow-up/Referrals: Ladi May MD [Physician] - Mahendra Magana DO [Physician] - 1 Week Discharge Medications: New hydrocodone-acetaminophen 10-325 mg tablet 1 tablet PO Q6H PRN (Reason: pain) Qty: 30 RF: 0 docusate sodium [Colace] 100 mg capsule 100 mg PO BID Qty: 30 RF: 0 Continued mecobalamin (vitamin B12) 1,000 mcg Tablet,Disintegrating 1,000 mcg PO DAILY RF: 0 prednisone 10 mg tablet 10 mg PO DAILY Qty: 70 RF: 0 Discontinued neomycin 500 mg tablet 1 g PO .COMPLEX Qty: 6 RF: 0 erythromycin 500 mg tablet 1 g PO .COMPLEX Qty: 6 RF: 0 azathioprine 50 mg tablet 100 mg PO QAM RF: 0 Date of admission: 10/10/20 16:05 Primary Care Provider: Joelle Lawson Admitting Provider: Mahendra Magana Attending physician on admission: Mahendra Magana Condition: Stable Quality VTE Prophylaxis VTE prophylaxis: pharmacologic ordered
== END 2020-10-14 12:40 | disposition home or self-care (01) | DRG 330 ==
LOC: ANH3MED 16:11
PROVIDERS: Nurse Practitioner Family; Admitting Provider Surgery; PCP Family Medicine; Visit Provider Surgery
PROC: 0D1E4Z4 Bypass Large Intestine to Cutaneous, Percutaneous Endoscopic Approach (ICD-10-PCS; principal; 2020-10-10 10:30)
DX: K50.00 Crohn's disease of small intestine without complications (principal); K56.609 Unspecified intestinal obstruction, unspecified as to partial versus complete obstruction; Z53.31 Laparoscopic surgical procedure converted to open procedure; E87.6 Hypokalemia
CPT/HCPCS: 36415; 80048; 82565; 85025; 85027; 88307; A9270; C9290; J0330; J0690; J1170; J1650; J1741; J1885; J2250; J2270; J2405; J2543; J2704; J2710; J3010; J3480; J7030; J7120

== ENCOUNTER 2020-11-24 08:57 | Emergency (ER) | payer BC, SELFPAY ==
[2020-11-24 09:12] VITALS: BP 130/86; PULSE 114; RESP 20; TEMP 37.4; O2SAT 98
--- NOTE | 2020-11-24 09:58 | ED.ABDPAIN ---
HPI - Abdominal Pain General Chief Complaint: Abdominal Pain Stated Complaint: side back pain Source: patient Mode of arrival: ambulatory Limitations: no limitations History of Present Illness HPI narrative: Patient is a 44-year-old male who presents complaining of right flank pain that radiates to the lower abdomen x3 to 4 days. He denies nausea, vomiting, diarrhea. He denies fever, chest pain or shortness of breath. Patient reports a history of Crohn's with a Colon Resection in September. Patient reports a history of obstruction multiple times in the past but states that it does not feel the same. Patient reports a history of kidney stones as well. He denies taking [id number] medications for pain at this time. MD elicited complaint: flank pain Related Data Home Medications Medication Instructions Recorded Confirmed azathioprine 11/24/20 Allergies Allergy/AdvReac Type Severity Reaction Status Date / Time No Known Allergies Allergy Verified 11/24/20 09:41 Review of Systems Review of Systems: Narrative: CONSTITUTIONAL: Denies fever, chills, or sweats. EYES: Denies visual changes, redness, or discharge. ENT: Denies rhinorrhea, congestion, sore throat, or otalgia. CARDIOVASCULAR: Denies chest pain, palpitations, or edema. RESPIRATORY: Denies cough or dyspnea. GASTROINTESTINAL: Denies abdominal pain, nausea, vomiting, or diarrhea. GENITOURINARY: Denies dysuria or hematuria. SKIN: Denies rash or itching. MUSCULOSKELETAL: Denies back pain, joint pain, or myalgia. NEUROLOGIC: Denies headache, numbness, dizziness, or weakness. PSYCHIATRIC: Denies anxiety or depression. [facility] Past Medical History Medical History History of Crohn's disease Lower abdominal pain Partial small bowel obstruction Surgical History Surgical History History of colon resection Attempted hand assisted laparoscopic ileocolic resection 2. Open ileocolic resection with side to side ileocolic anastomosis 3. Extensive adhesiolysis History of resection of small bowel 1997 Ileocecectomy Family History Family History Father Hypertension Father Hypertension Family history of elevated blood lipids Social History Social History Smoking packs per day: 0.20 Smoking cigarettes per day: 4.0 Years smoked: 24 Smoking pack-years: 4.80 Smokeless tobacco user: chewing tobacco Second hand tobacco smoke exposure: Yes Additional smoking assessment comments: will order gum Alcohol intake: current Drinks per week: 2 Substance use: never Substance use type: does not use Gender identity (if verbalized by the patient): Male Spiritual care concerns: No Agree to blood products: No Comments At the time of signature, I have reviewed and agree with nursing past medical, surgical, social, and family history unless otherwise noted. Please see nursing chart for further information. There is no relevant family history pertinent to the presenting complaint. Exam Narrative: Exam Narrative: GENERAL: Well-appearing, well-nourished, and in no acute distress. HEAD: Normocephalic, atraumatic. EYES: EOMI. No redness or drainage. ENT: Mucous membranes pink and moist. CHEST: No respiratory distress. Clear to auscultation. HEART: Regular rate and rhythm. GI: Soft, nontender without rebound, or guarding. No distention. Bowel sounds hypoactive. MUSCULOSKELETAL: No bony tenderness. EXTREMITIES: Normal range of motion. No edema. SKIN: Warm, dry, no rash. NEURO: No focal deficits. Alert and oriented x3. Gait steady. PSYCH: Normal affect. No signs of depression or anxiety. Course Vital Signs Vital signs: Vital Signs Temperature 37.4 C 11/24/20 09:12 Pulse Rate 114 H 11/24/20 09:12 Respiratory Rate 20
--- NOTE | 2020-11-24 10:08 | PC.NURSE ---
SEYMOUR BELTRAN NP DID NOT WANT ORDER FOR URINE CULTURE NO CULTURE DONE. C[place]AND PATTON RN.
== END 2020-11-24 10:09 | disposition short-term general hospital (02) ==
PROVIDERS: Emergency Provider Nurse Practitioner; PCP Family Medicine
DX: R10.9 Unspecified abdominal pain (principal); F17.210 Nicotine dependence, cigarettes, uncomplicated; F17.220 Nicotine dependence, chewing tobacco, uncomplicated; K50.90 Crohn's disease, unspecified, without complications
CPT/HCPCS: 81003; 99212; G0463

== ENCOUNTER 2020-11-24 11:13 | Inpatient (IN) | payer BC, SELFPAY ==
[2020-11-24] VITALS (7 sets, daily range): BP systolic 114–147; BP diastolic 80–103; PULSE 77–106; RESP 18–20; TEMP 36.3–37.3; O2SAT 96–100; BMI 29.2
--- NOTE | ~2020-11-24 | CT_ITS ---
EXAMINATION: CT abdomen pelvis w con DATE: 11/27/2020 09:07 INDICATION: Abdominal abscess. TECHNIQUE: Computed tomography (CT) of the abdomen and pelvis was performed with 100 mL Omnipaque 350 intravenous contrast. Automated exposure control and iterative reconstruction technique were employe d. The dose-length product was 841.71 mGy-cm. COMPARISON: CT abdomen and pelvis 11/24/2020, 09/03/2020 FINDINGS: The visualized portions of the lung bases demonstrate mild atelectasis. No pleural effusion . The heart size is normal. No pericardial effusion. The liver, gallbladder, spleen, pancreas, adrena l glands, and right kidney are normal. There is a 13 mm cyst in left kidney. There are changes of ile ocolic resection and anastomosis. The terminal ileum is dilated, consistent with adynamic ileus. Ther e is passage of oral contrast to the colon. There is focal wall thickening of the terminal ileum jose cent to the at the staple line. There is a fistula between this area and an adjacent loop of small lynda wel that demonstrates focal wall thickening. There is fat stranding around the fistula and trace gas and fluid in the fistula. No oral contrast in the fistula. There is fat stranding in anterior and rig ht abdomen, consistent with inflammation. There is mild mesenteric lymphadenopathy. There is no signi ficant ascites. There is mild thoracolumbar spondylosis. IMPRESSION: 1. Fistula between 2 adjacent loops of small bowel in right lower quadrant, consistent with Crohn dis ease. No significant drainable abscess. 2. Mild mesenteric lymphadenopathy, likely reactive. Reviewed, dictated and finalized at location A. IMPRESSION: 1. Fistula between 2 adjacent loops of small bowel in right lower quadrant, con sistent with Crohn disease. No significant drainable abscess. 2. Mild mesenteric lymphadenopathy, likely reactive.
--- NOTE | ~2020-11-24 | CT_ITS ---
EXAMINATION: CT abdomen pelvis wo con DATE: 11/24/2020 12:26 INDICATION: Right flank pain, history of Crohn disease with open ileocolic resection and [id number] ileocolic anastomosis on 10/10/2020 TECHNIQUE: Computed tomography (CT) of the abdomen and pelvis was performed without intravenous contr ast. The dose-length product (DLP) was 885.96 mGy-cm. Automated exposure control and iterative recons truction technique were employed. COMPARISON: 09/03/2020 FINDINGS: Minimal dependent atelectasis is present in the lung bases. The heart size is normal. The l iver, spleen, pancreas, gallbladder, and adrenal glands are normal. The kidneys are unremarkable. The re is a 4.1 x 2.5 cm fluid collection containing gas in the right mid abdomen located just caudal to the ileocolic anastomosis and abutting a small bowel loop of the right lower quadrant. There is mild abdominal lymphadenopathy, likely reactive. There are no dilated loops of bowel. Inflammation of the fat in the anterior abdomen and midline containing soft tissues is consistent IMPRESSION: 1. Abscess in the right mid abdomen just caudal to the ileocolic anastomosis. These findings were dis cussed with Dr. Griffin in the Emergency Department at 1300 hours on 11/24/2020. Reviewed, dictated and finalized at location A. IMPRESSION: 1. Abscess in the right mid abdomen just caudal to the ileocolic anastomosis. T hese findings were discussed with Dr. Griffin in the Emergency Department at 1300 hours on 11/24/2020.
[2020-11-24 11:39] LABS: Basophils Absolute Auto 0.1 K/mm3 (0.0-0.1); Basophils Percent Auto 0.4 % (0.2-1.2); Eosinophils Absolute Auto 0.1 K/mm3 (0-0.3); Eosinophils Percent Auto 0.8 % (0-4.4); Hematocrit 42.8 % (42.0-52.0); Hemoglobin 14.3 g/dL (14.0-18.0); Immature Granulocyte Absolute 0.04 K/mm3 (0.00-0.031); Immature Granulocyte Percent A 0.3 % (0-0.5); Lymphocytes Absolute Auto 0.96 K/mm3 (0.9-3.2); Mean Corpuscular HGB Conc 33.4 g/dl (32-36); Mean Corpuscular Hemoglobin 30.3 pg (26-34); Mean Corpuscular Volume 90.7 fl (80-100); Mean Platelet Volume 8.5 fl (7.4-10.4); Monocytes Percent Auto 8.7 % (2.6-8.5); Neutrophils Absolute Auto 9.8 K/mm3 (1.3-6.7); Neutrophils Percent Auto 81.8 % (45.5-73.1); Platelet Count Result 358 k/mm3 (150-375); Red Blood Count 4.72 M/mm3 (4.6-6.20); Red Cell Distribution Width 12.8 % (11.5-14.5); White Blood Count 11.9 K/mm3 (4.5-10.0)
[2020-11-24 11:44] LABS: Add Urine Microscopic? YES; Appearance Urine Clear (Clear); Bilirubin Urine Negative (Negative); Blood Urine 2+ (Negative); Color Urine Amber (Yellow); Glucose Urine UA Negative (Negative); Ketones Urine Negative (Negative); Leukocyte Esterase Ur Negative LEU/UL (Negative); Mucus Urine Rare /lpf; Nitrate Urine Negative (Negative); Protein Urine 1+ mg/dL (Negative); Specific Grav Ur 1.018 (1.001-1.035); Squamous Epithelial Cell Urine Rare /hpf (Few); WBC Urine 0-3 /hpf
[2020-11-24 11:48] LABS: Anion Gap 14 mmol/L (8-16); Blood Urea Nitrogen 7 mg/dL (9-20); Carbon Dioxide 24 mmol/L (22-30); Chloride 101 mmol/L (98-107); Estimated CRCL calculation 87 ml/min; Estimated Glomerular Filt Rate > 60; Glucose 139 mg/dL (75-110); Potassium 3.1 mmol/L (3.4-5.0); Sodium 139 mmol/L (137-145)
[2020-11-24] MEDS: MORPHINE SULFATE (*CRX) 4 MG/ML INJ IV PUSH ×3 (12:19→16:48)
[2020-11-24] MEDS: ONDANSETRON INJ 4 MG/2 ML VIAL IV PUSH (12:20)
[2020-11-24] MEDS: SODIUM CHLORIDE 0.9% IV 1,000 ML 999 ML IV CONT (12:20)
--- NOTE | 2020-11-24 13:57 | ED.GENADULT ---
HPI - General Adult General Chief complaint: Abdominal Pain Stated complaint: r flank pain Time Seen by Provider: 11/24/20 12:02 Source: patient, RN notes reviewed and old records reviewed Mode of arrival: ambulatory Limitations: no limitations History of Present Illness HPI narrative: Patient is a 44-year-old male who presents with abdominal pain on the right side is been present since Thursday saw his surgeon on for this and was reassured with scan planned for the near future however he continued to have pain with with activity and movement and night sweats patient had recent surgery by Dr. Don care on 519 for an ileocolic resection with history of Crohn's patient denies vomiting rectal bleeding melena or urinary symptoms Related Data Home Medications Medication Instructions Recorded Confirmed azathioprine 11/24/20 Allergies Allergy/AdvReac Type Severity Reaction Status Date / Time No Known Allergies Allergy Verified 11/24/20 09:41 Review of Systems Review of Systems: All systems reviewed & are unremarkable except as noted in HPI and below PMFSH Past Medical History Medical History History of Crohn's disease Lower abdominal pain Partial small bowel obstruction Surgical History Surgical History History of colon resection Attempted hand assisted laparoscopic ileocolic resection 2. Open ileocolic resection with side to side ileocolic anastomosis 3. Extensive adhesiolysis History of resection of small bowel 1997 Ileocecectomy Family History Family History Father Hypertension Father Hypertension Family history of elevated blood lipids Social History Social History Smoking packs per day: 0.20 Smoking cigarettes per day: 4.0 Years smoked: 24 Smoking pack-years: 4.80 Smokeless tobacco user: chewing tobacco Second hand tobacco smoke exposure: Yes Additional smoking assessment comments: will order gum Alcohol intake: current Drinks per week: 2 Substance use: never Substance use type: does not use Gender identity (if verbalized by the patient): Male Spiritual care concerns: No Agree to blood products: No Exam Narrative: Exam Narrative: GENERAL: Well-appearing, well-nourished, and in no acute distress. HEAD: Normocephalic, atraumatic. EYES: PERRLA and EOMI. ENT: Nares clear, no rhinorrhea or epistaxis. Mucous membranes moist. CHEST: Clear to auscultation. No respiratory distress. No wheezes rales or rhonchi HEART: Regular rate and rhythm. No murmur heard. Normal peripheral pulses. ABDOMEN: Soft, nontender, nondistended EXTREMITIES: Normal range of motion. No edema. SKIN: Warm, dry, no rash. NEURO: No focal deficits. Alert and oriented x3. Cranial nerves II through XII grossly intact PSYCH: Normal mood and affect. Course Course Emergency Course: Patient found to have abscess from his surgery will be placed in hospital blood cultures obtained hydrated given IV antibiotics will be admitted to general surgery agreeing with this plan Consultations Consultation #1: Discussed case with general surgeon Dr. Steele who would like the patient to be placed in hospital n.p.o. with IV antibiotics and will be seen in hospital by general surgery Date: 11/24/20 Time: 14:01 Vital Signs Vital signs: Vital Signs Temperature 99.1 F 11/24/20 11:21 Pulse Rate 106 H 11/24/20 11:21 Respiratory Rate 20 11/24/20 11:21 Blood Pressure 142/103 H 11/24/20 11:21 Pulse Oximetry 100 11/24/20 11:21 Temperature 99.1 F 11/24/20 12:49 Pulse Rate 106 H 11/24/20 11:21 Respiratory Rate 20 11/24/20 11:21 Blood Pressure 142/103 H 11/24/20 11:21 Pulse Oximetry 100 11/24/20 11:21 Medical Decision Making [facility] Narrative Medical decisio
[2020-11-24 14:11] LABS: Lactic Acid Reflex 0.6 mmol/L (0.7-2.1)
--- NOTE | 2020-11-24 14:39 | WPDUROPN2 ---
Subjective Subjective Date/Time Seen: 11/24/20 14:39 the patient is showing up on my list. He was admitted from the emergency room. I talked emergency room provider. They stated they did not consult me and no urology consult isneeded. Objective Data Vital Signs Vital Signs: Vital Signs - 24 hr 11/24/20 11:21 11/24/20 12:49 11/24/20 14:34 Temperature 99.1 F 99.1 F Pulse Rate 106 H 86 Respiratory Rate 20 18 Blood Pressure 142/103 H 114/80 Pulse Oximetry 100 96 Intake/Output Intake/Output: Intake & Output 11/21/20 11/22/20 11/23/20 11/24/20 23:59 23:59 23:59 23:59 Intake Total 1100 Balance 1100 Meds/Results Medications: Active Medications Generic Name Dose Route Start Last Admin Trade Name Freq PRN Reason Stop Dose Admin Famotidine 20 mg 11/24/20 21:00 Famotidine 20 Mg/2 Ml Vial IV PUSH Q12HR JUSTINE Acetaminophen 1,000 mg in 100 mls @ 400 mls/hr 11/24/20 14:03 Ofirmev 1,000 Mg Ivpb IVPB 11/25/20 14:04 Q6H PRN Mild Pain (1-3) or Fever Lactated Ringer's 1,000 mls @ 125 mls/hr 11/24/20 14:05 Lr - Lactated Ringers Iv IV CONT .Q8H JUSTINE Piperacillin/Tazobactam/Dextrose 3.375 gm in 50 mls @ 100 mls/hr 11/24/20 16:00 Zosyn 3.375 Gm/D5w 50ml Pm IVPB Q6HR JUSTINE Morphine Sulfate 4 mg 11/24/20 14:03 Morphine Sulfate (*Crx) 4 Mg/Ml Inj IV PUSH Q2H PRN Pain Rated 7-10 Ondansetron HCl 4 mg 11/24/20 14:03 Ondansetron Inj 4 Mg/2 Ml Vial IV PUSH Q4H PRN Nausea Radiology Results: ITS Impressions Abdomen/Pelvis CT 11/24/20 12:43 IMPRESSION: 1. Abscess in the right mid abdomen just caudal to the ileocolic anastomosis. These findings were discussed with Dr. Griffin in the Emergency Department at 1300 hours on 11/24/2020. Labs Labs: Laboratory Results - last 24 hr 11/24/20 11/24/20 11/24/20 11:27 11:27 11:31 WBC 11.9 H RBC 4.72 Hgb 14.3 Hct 42.8 MCV 90.7 MCH 30.3 MCHC 33.4 RDW 12.8 Plt Count 358 MPV 8.5 Immature Gran % (Auto) 0.3 Neut % (Auto) 81.8 H Lymph % (Auto) 8.0 L [place] % (Auto) 8.7 H Eos % (Auto) 0.8 Baso % (Auto) 0.4 Lymph # (Auto) 0.96 [place] # (Auto) 1.0 H Eos # (Auto) 0.1 Baso # (Auto) 0.1 Abs Immat Gran (auto) 0.04 H Absolute Neuts (auto) 9.8 H Absolute Nucleated RBC 0.0 Nucleated RBC % 0.0 Sodium 139 Potassium 3.1 L Chloride 101 Carbon Dioxide 24 Anion Gap 14 BUN 7 L Creatinine 1.10 Estim Creat Clear Calc 87 Estimated GFR > 60 Glucose 139 H Lactic Acid Calcium 10.0 Urine Color Brenda Urine Appearance Clear Urine pH 6.0 Ur Specific [place] 1.018 Urine Protein 1+ H Urine Glucose (UA) Negative Urine Ketones Negative Ur Blood (Man) 2+ H Urine Nitrate Negative Urine Bilirubin Negative Urine Urobilinogen 2.0 H Leukocyte Esterase Rfl Negative Urine RBC 11-20 H Urine WBC 0-3 Ur Squamous Epith Cells Rare Urine Mucus Rare 11/24/20 13:55 WBC RBC Hgb Hct MCV MCH MCHC RDW Plt Count MPV Immature Gran % (Auto) Neut % (Auto) Lymph % (Auto) [place] % (Auto) Eos % (Auto) Baso % (Auto) Lymph # (Auto) [place] # (Auto) Eos # (Auto) Baso # (Auto) Abs Immat Gran (auto) Absolute Neuts (auto) Absolute Nucleated RBC Nucleated RBC % Sodium Potassium Chloride Carbon Dioxide Anion Gap BUN Creatinine Estim Creat Clear Calc Estimated GFR Glucose Lactic Acid 0.6 L Calcium Urine Color Urine Appearance Urine pH Ur Specific [place] Urine Protein Urine Glucose (UA) Urine Ketones Ur Blood (Man) Urine Nitrate Urine Bilirubin Urine Urobilinogen Leukocyte Esterase Rfl Urine RBC Urine WBC Ur Squamous Epith Cells Urine Mucus
[2020-11-24] MEDS: LACTATED RINGERS 1,000 ML 125 ML IV CONT (15:12)
--- NOTE | 2020-11-24 15:12 | ADMGEN ---
This patient, Noe Webb II, was admitted to [facility] Surg Room 320-01. Patient/family oriented to hospital policies and general routines including ID bracelet, bed and alarms, visiting hours, pain management, procedures, bathroom and other care routines, personal items, smoking policy, room service/diet, and visiting hours. Information on how to activate the Rapid Response Team has been discussed. Patient/Family are encouraged to report perceived risks to care and to ask questions if they do not understand what they are told or what they should do.
--- NOTE | 2020-11-24 16:40 | PM.IMHP ---
H&P: HPI History of Present Illness Date/Time: 11/24/20 16:40 Noe returns after recent attempted KIM ileocolic resection, open ileocolic resection with side to side ileocolic anastomosis and extensive adhesiolysis on 10-10-20. Patient was seen by Dr. Don care earlier this week for this problem however now presents the emergency room with worsening of the problem including complaints of abdominal pain right upper quadrant gaseous bloating and flank pain. Please see the ER notes for further details. He reports new back and right sided pain which feels like uncomfortable ache for the past 2 weeks. He is having some abdominal bloating and gas at night. He is eating well and having normal bowel movements. He denies blood in his urine or burning with urination. The only thing patient is on for his Crohn's disease now is Imuran or azathioprine. Typically follows with Dr. Johnson for his Crohn's disease.We will hold this while he is inpatient. CT scan today as workup in the emergency room revealed a 4 x 2 cm abscess near the ileocolic anastomosis. Ideally this would be drained by CT-guided guidance. White count was slightly elevated also. Chief Complaint: Abdominal and right flank pain Review of Systems Constitutional: Constitutional: Reports as per HPI and Denies headache(s) Eyes: Eyes: Denies loss of vision and Denies eye pain ENT: Reports Normal hearing present, Denies change in voice, Denies dizziness and Denies headache(s) Cardiovascular: Cardiovascular: Denies chest pain and Denies dyspnea Respiratory: Respiratory: Denies dyspnea and Denies wheezing Gastrointestinal: Gastrointestinal: Reports abdominal pain, Reports GI cramping, Reports excessive flatus and Denies odynophagia Comments: Patient states the pain is mostly on the right and above the level of the umbilicus. He reports no problems with his midline wound. Musculoskeletal: Musculoskeletal: Denies back pain and Denies arthralgias Neurologic: Reports Normal hearing present, Denies dizziness, Denies headache(s), Denies loss of vision and Denies memory loss Psychiatric: Psychiatric: Denies memory loss and Denies panic attacks Endocrine: Endocrine: Reports no additional endocrine complaints Hematologic/Lymphatic: Hematologic/Lymphatic: Reports no additional hematologic/lymphatic complaints Allergic/Immunologic: Allergic/Immunologic: Denies wheezing PMFSH Past Medical History Medical History History of Crohn's disease Lower abdominal pain Partial small bowel obstruction Surgical History Surgical History History of colon resection Attempted hand assisted laparoscopic ileocolic resection 2. Open ileocolic resection with side to side ileocolic anastomosis 3. Extensive adhesiolysis History of resection of small bowel 1997 Ileocecectomy Family History Family History Father Hypertension Father Hypertension Family history of elevated blood lipids Social History Social History Smoking packs per day: 0.20 Smoking cigarettes per day: 4.0 Years smoked: 24 Smoking pack-years: 4.80 Smokeless tobacco user: chewing tobacco Second hand tobacco smoke exposure: Yes Additional smoking assessment comments: will order gum Alcohol intake: current Drinks per week: 2 Substance use: never Substance use type: does not use Gender identity (if verbalized by the patient): Male Spiritual care concerns: No Agree to blood products: No Meds Home Medications and Allergies Home Medications Medication Instructions Recorded Confirmed Type azathioprine 11/24/20 History Allergies Allergy/AdvReac Type Severity Reaction Status Date / Time No Known Allergies Allergy Verified 11/24/20 09:41 Vital Signs Vit
[2020-11-24] MEDS: POTASSIUM CHLORIDE 20 MEQ TABLET.ER PO (17:59)
[2020-11-24] MEDS: HYDROcodone/acetaminophen (*CRX) 5-325 MG TABLET 1 TAB PO (19:46)
[2020-11-24] MEDS: FAMOTIDINE 20 MG/2 ML VIAL IV PUSH (23:38)
[2020-11-25] VITALS: BP 128/83; PULSE 75; RESP 18; TEMP 36.4; O2SAT 100
[2020-11-25] MEDS: MORPHINE SULFATE (*CRX) 4 MG/ML INJ IV PUSH ×4 (00:31→19:57)
[2020-11-25 04:00] VITALS: BP 125/89; PULSE 73; RESP 18; TEMP 36.4; O2SAT 100
[2020-11-25] MEDS: LACTATED RINGERS 1,000 ML 125 ML IV CONT (04:51)
[2020-11-25 06:11] LABS: Basophils Absolute Auto 0.1 K/mm3 (0.0-0.1); Basophils Percent Auto 0.5 % (0.2-1.2); Eosinophils Absolute Auto 0.2 K/mm3 (0-0.3); Eosinophils Percent Auto 1.6 % (0-4.4); Hematocrit 36.7 % (42.0-52.0); Hemoglobin 12.2 g/dL (14.0-18.0); Immature Granulocyte Absolute 0.04 K/mm3 (0.00-0.031); Immature Granulocyte Percent A 0.4 % (0-0.5); Lymphocytes Absolute Auto 1.07 K/mm3 (0.9-3.2); Lymphocytes Percent Auto 11.2 % (18.3-44.2); Mean Corpuscular HGB Conc 33.2 g/dl (32-36); Mean Corpuscular Hemoglobin 30.4 pg (26-34); Mean Corpuscular Volume 91.5 fl (80-100); Mean Platelet Volume 8.3 fl (7.4-10.4); Monocytes Absolute Auto 1.1 K/mm3 (0.1-0.6); Monocytes Percent Auto 11.5 % (2.6-8.5); Neutrophils Absolute Auto 7.2 K/mm3 (1.3-6.7); Neutrophils Percent Auto 74.8 % (45.5-73.1); Platelet Count Result 271 k/mm3 (150-375); Red Blood Count 4.01 M/mm3 (4.6-6.20); Red Cell Distribution Width 12.5 % (11.5-14.5); White Blood Count 9.6 K/mm3 (4.5-10.0)
[2020-11-25 06:23] LABS: Alanine Aminotransferase 9 U/L (4-50); Albumin Level 3.5 g/dL (3.5-5.1); Alkaline Phosphatase 71 U/L (38-126); Anion Gap 8 mmol/L (8-16); Aspartate Amino Transferase 16 U/L (17-59); Bilirubin,Total 0.7 mg/dL (0.2-1.3); Blood Urea Nitrogen 5 mg/dL (9-20); Calcium 8.8 mg/dL (8.4-10.2); Carbon Dioxide 23 mmol/L (22-30); Chloride 107 mmol/L (98-107); Estimated CRCL calculation 95 ml/min; Estimated Glomerular Filt Rate > 60; Glucose 104 mg/dL (75-110); Magnesium 1.4 mg/dL (1.6-2.3); Potassium 3.2 mmol/L (3.4-5.0); Sodium 138 mmol/L (137-145)
[2020-11-25] MEDS: LACTATED RINGERS 1,000 ML 75 ML IV CONT (07:03)
[2020-11-25 08:00] VITALS: BP 116/86; PULSE 83; RESP 14; TEMP 36.2; O2SAT 98
[2020-11-25] MEDS: ENOXAPARIN 40 MG/0.4 ML SYRINGE SUB-Q (08:08)
[2020-11-25] MEDS: HYDROcodone/acetaminophen (*CRX) 5-325 MG TABLET 1 TAB PO ×2 (08:08→16:02)
[2020-11-25] MEDS: FAMOTIDINE 20 MG/2 ML VIAL IV PUSH (08:09)
[2020-11-25] MEDS: POTASSIUM CHLORIDE 20 MEQ TABLET.ER PO ×2 (08:09→16:01)
[2020-11-25] MEDS: MAGNESIUM OXIDE 400 MG TABLET PO ×2 (08:09→16:01)
--- NOTE | 2020-11-25 08:28 | PM.PNGS ---
Progress Note: A&P Assessment and Plan (1) Abdominal abscess: Onset Date: ~10/2020 Status: Acute Assessment and Plan: this is the main reason for the patient's admission. If possible will try to get a CT-guided drainage tube placed. Radiologist capable of same will be here on Thursday. Currently patient is stable on IV antibiotics with some improvement. (2) Crohn's disease of small intestine with intestinal obstruction: Onset Date: ~1996 Code(s): K50.012 - Crohn's disease of small intestine with intestinal obstruction Status: Acute Assessment and Plan: Patient was on Imuran home but since this is Immunocompromised will hold this. Have check with pharmacy we do have enter a court which may be less of a problem but still help his Crohn's. Will have him take this once a day in the mornings. (3) RUQ abdominal tenderness: Onset Date: ~10/2020 Code(s): R10.811 - Right upper quadrant abdominal tenderness Status: Acute Assessment and Plan: Most likely related to 1. Above. Patient has various pain meds available. He will try to cut back to either just 1 [place] Q 6 hours or some Tylenol Q 6 hours. He will take either duplex or MiraLax if he has not had a bowel movement tomorrow. (4) Hypokalemia: Onset Date: ~11/24/20 Code(s): E87.6 - Hypokalemia Status: Acute Assessment and Plan: Potassium still only 3.2 after IV infusion and start of oral potassium last evening. Will give him 1 more IV infusion today and recheck potassium tomorrow. (5) Over weight: Onset Date: Unknown Code(s): E66.3 - Overweight Status: Acute Assessment and Plan: Patient is trying to follow low-fat diet. Currently on a low-fat soft diet. Subjective Subjective Date/Time Seen: 11/25/20 08:28 Patient is sitting up in bed when I entered the room. States he still has some right upper quadrant abdominal pain and radiating to the flank. No other specific problems. Tolerated a soft diet last night. No bowel movement since entering the hospital. Discussed constipation and p.r.n. use of to coax tablet and MiraLax which are ordered. Review of Systems Constitutional: Constitutional: Reports no additional constitutional complaints ENT: Reports other (Mucous Membranes moist.) Cardiovascular: Cardiovascular: Denies dyspnea Respiratory: Respiratory: Denies pain on inspiration and Denies dyspnea Gastrointestinal: Gastrointestinal: Reports abdominal pain ( Mainly across right upper quadrant radiating to right flank.), Reports bloating, Denies heartburn, Denies diarrhea, Denies nausea and Denies hematemesis Genitourinary: Comments: He has not specifically noted hematuria. Musculoskeletal: Musculoskeletal: Reports other (No calf swelling or edema) Integumentary/Breasts: Skin/Breast: Reports system reviewed and no additional complaints, except as docu Exam Const: General: cooperative, no acute distress, alert and awake Orientation/consciousness: patient oriented x3 HENMT: Mouth: Yes moist mucous membranes Neck: Neck: normal visual inspection Chest: Chest palpation & inspection: normal inspection of the chest Resp: Effort & Inspection: normal respiratory effort Auscultation: clear to auscultation bilaterally Cardio: Jugular venous distension: no JVD Rate: regular rate Rhythm: regular rhythm GI: Inspection: incision ( clean and dry without hernia) Auscultation: normal bowel sounds Rectal Exam: deferred Other: mild tenderness to palpation in the right upper quadrant radiating to the right flank : Male General Exam: Yes normal external exam Penis: Yes normal penis Testes: Testes normal Neuro: General: patient oriented x3 and moves all extremities Speech: normal speech Extrem: General: normal exam except as noted Psych: Mental Status: mental status grossly normal Speech and movement: Normal speech and movement present Affec
[2020-11-25] MEDS: BISACODYL 5 MG TABLET EC PO (10:19)
[2020-11-25] MEDS: BUDESONIDE 3 MG CAP.SR.24H 9 MG PO (10:32)
[2020-11-25 16:00] VITALS: BP 131/81; PULSE 82; RESP 16; TEMP 36.4; O2SAT 95
[2020-11-25] MEDS: FAMOTIDINE 20 MG TABLET PO (19:59)
[2020-11-25 22:00] VITALS: BP 137/87; PULSE 78; RESP 16; TEMP 37.2; O2SAT 100
[2020-11-26] MEDS: HYDROcodone/acetaminophen (*CRX) 5-325 MG TABLET 1 TAB PO ×2 (00:48→22:09)
[2020-11-26 06:00] VITALS: BP 133/90; PULSE 73; RESP 16; TEMP 36.3; O2SAT 100
[2020-11-26 06:23] LABS: Anion Gap 5 mmol/L (8-16); Blood Urea Nitrogen 2 mg/dL (9-20); Calcium 8.9 mg/dL (8.4-10.2); Carbon Dioxide 28 mmol/L (22-30); Chloride 107 mmol/L (98-107); Estimated CRCL calculation 105 ml/min; Estimated Glomerular Filt Rate > 60; Glucose 97 mg/dL (75-110); Magnesium 1.7 mg/dL (1.6-2.3); Potassium 3.4 mmol/L (3.4-5.0); Sodium 140 mmol/L (137-145)
[2020-11-26] MEDS: BUDESONIDE 3 MG CAP.SR.24H 9 MG PO (09:35)
[2020-11-26] MEDS: ENOXAPARIN 40 MG/0.4 ML SYRINGE SUB-Q (09:35)
[2020-11-26] MEDS: FAMOTIDINE 20 MG TABLET PO ×2 (09:35→19:40)
[2020-11-26] MEDS: POTASSIUM CHLORIDE 20 MEQ TABLET.ER PO ×2 (09:35→17:37)
[2020-11-26] MEDS: MAGNESIUM OXIDE 400 MG TABLET PO ×2 (10:53→17:37)
--- NOTE | 2020-11-26 12:00 | PM.PNGS ---
Progress Note: A&P Assessment and Plan (1) Abdominal abscess: Onset Date: ~10/2020 Status: Acute Assessment and Plan: This is the main reason for the patient's admission. If possible will try to get a CT-guided drainage tube placed. Radiologist capable of same will be here on Thursday AM. Currently patient is stable on IV antibiotics with some improvement. Reviewed the ER CT scan from several days ago with current radiologist. He is wondering if this is mainly Phlegmatous change and will be cured with antibiotics only. There is not obvious fluid wiht the cavity near the ileocoloic anastamosis, however, after thorough discussion we agreed to proceeding with a follow-up CT scan of the abdomen pelvis with oral and IV contrast to try to see if this has changed at all in hte interim and does require drainage. Otherwise patient may be get better with just simple antibiotic treatment. Will do this tomorrow morning when there is an of radiologist available that typically does the CT-guided drainage is. Current radiologist believes that there is a pathway that if this was a fluid collection there may be able to be drainage done. (2) Crohn's disease of small intestine with intestinal obstruction: Onset Date: ~1996 Code(s): K50.012 - Crohn's disease of small intestine with intestinal obstruction Status: Acute Assessment and Plan: Patient was on Imuran home but since this can be immunocompromising will hold this. Have checked with pharmacy and we do have Entocort which may be less of a problem but still help his Crohn's. Will have him take this once a day in the mornings. (3) RUQ abdominal tenderness: Onset Date: ~10/2020 Code(s): R10.811 - Right upper quadrant abdominal tenderness Status: Acute Assessment and Plan: Most likely related to 1. Above. Patient has various pain meds available. He will try to cut back to either just 1 [place] Q 6 hours or some Tylenol Q 6 hours. He will take either a Dulcolax or some po MiraLax if he has not had a bowel movement tomorrow. (4) Hypokalemia: Onset Date: ~11/24/20 Code(s): E87.6 - Hypokalemia Status: Acute Assessment and Plan: Potassium now up to 3.4 after IV infusion and start of oral potassium o 7/4. (5) Over weight: Onset Date: Unknown Code(s): E66.3 - Overweight Status: Acute Assessment and Plan: Patient is trying to follow low-fat diet. Currently on a low-fat soft diet. Subjective Subjective Date/Time Seen: 11/26/20 12:00 Interval history: Patient is sitting up in chair when I entered the room. He is feeling okay. Still some cramping abdominal pain in the right abdomen with eating or after eating. No fever overnight no other problems he is up walking around the room. Discussed with him the need for repeat CT scan with oral and IV contrast to recheck the possible abscess in the right mid abdomen. Review of Systems Constitutional: Constitutional: Reports as per HPI, Reports no additional constitutional complaints, Denies fever(s), Denies headache(s) and Denies weakness Eyes: Eyes: Denies loss of vision and Denies eye pain ENT: Reports Normal hearing present, Denies change in voice, Denies dizziness, Denies headache(s), Denies odynophagia and Reports other (Mucous Membranes moist.) Cardiovascular: Cardiovascular: Denies chest pain and Denies dyspnea Respiratory: Respiratory: Denies pain on inspiration, Denies dyspnea and Denies wheezing Gastrointestinal: Gastrointestinal: Reports abdominal pain ( Mainly across right upper quadrant radiating to right flank.), Reports bloating, Reports GI cramping, Reports excessive flatus, Denies heartburn, Denies diarrhea, Denies nausea, Denies odynophagia and Denies hematemesis Comments: Abdominal pain is improving while he is on IV antibiotics in the hospital. Genitourinary: Genitourinary: Reports no additional male genitourina
[2020-11-26] MEDS: LACTATED RINGERS 1,000 ML 75 ML IV CONT (13:06)
[2020-11-26 14:00] VITALS: BP 135/87; PULSE 73; RESP 16; TEMP 36.9; O2SAT 96
[2020-11-26 19:50] VITALS: PULSE 74; RESP 18; O2SAT 100
[2020-11-26 21:47] VITALS: BP 163/96; PULSE 74; RESP 18; TEMP 36.5; O2SAT 100
[2020-11-27] MEDS: MORPHINE SULFATE (*CRX) 4 MG/ML INJ IV PUSH (00:41)
[2020-11-27] MEDS: LACTATED RINGERS 1,000 ML 75 ML IV CONT (05:26)
[2020-11-27 05:36] LABS: Mean Platelet Volume 8.1 fl (7.4-10.4); Platelet Count Result 272 k/mm3 (150-375)
[2020-11-27 06:00] VITALS: BP 126/77; PULSE 64; RESP 16; TEMP 36.2; O2SAT 92
--- NOTE | 2020-11-27 11:34 | PM.PNGS ---
Progress Note: A&P Assessment and Plan (1) Abdominal abscess: Onset Date: ~10/2020 Status: Acute Assessment and Plan: CT scan abd/pelvis repeated today and suggests a fistula between 2 small bowel loops with inflammation, consistent with Crohn's disease. No drainable abscess. His abdominal pain seems to be related to his Crohn's disease. Will consult GI for recommendations. Azathioprine was stopped on admission. Continue IV abx. Will start him on full liquids. (2) Crohn's disease of small intestine with intestinal obstruction: Onset Date: ~1996 Code(s): K50.012 - Crohn's disease of small intestine with intestinal obstruction Status: Acute Assessment and Plan: GI consulted today. See plan above. Additional Plan I have discussed the patient's case and plan of care with Dr. Magana. Subjective Subjective Date/Time Seen: 11/27/20 11:34 Patient reports: no new complaints, pain is less (right-sided abd pain aggravated by eating), voiding w/o difficulty, flatus, bowel movement and afebrile Interval history: Patient seen this morning. Has been NPO since midnight for CT this morning. He is still having intermittent right-sided abd pain, which he feels has improved some. No nausea or vomiting. Review of Systems Review of Systems: All systems reviewed & are unremarkable except as noted in HPI and below Exam Const: General: comfortable, no acute distress, alert and awake Orientation/consciousness: patient oriented x3 GI: Inspection: non-distended GI Palp: Yes Soft to palpation, Yes Tenderness to palpation present (GI) (right-sided), No Guarding due to palpation present (GI), No Hernia present and No Rebound tenderness present Auscultation: normal bowel sounds Skin: General skin exam: normal color Extrem: General: no clubbing, cyanosis or edema Psych: Mental Status: mental status grossly normal Insight: Good insight present (Psych) Judgement: Good judgement present (Psych) Objective Data Vital Signs Vital Signs: Vital Signs - 24 hr 11/26/20 14:00 11/26/20 19:50 11/26/20 21:47 Temperature 98.4 F 97.7 F Pulse Rate 73 74 74 Respiratory Rate 16 18 18 Blood Pressure 135/87 163/96 H Pulse Oximetry 96 100 100 11/27/20 06:00 Temperature 97.2 F L Pulse Rate 64 Respiratory Rate 16 Blood Pressure 126/77 Pulse Oximetry 92 Intake/Output Intake/Output: Intake & Output 11/24/20 11/25/20 11/26/20 11/27/20 23:59 23:59 23:59 23:59 Intake Total 2890 3560 2690 1050 Balance 2890 3560 2690 1050 Meds/Results Medications: Active Medications Generic Name Dose Route Start Last Admin Trade Name Freq PRN Reason Stop Dose Admin Acetaminophen 1,000 mg 11/25/20 08:27 Acetaminophen 500 Mg Tablet PO Q6H PRN Mild Pain (1-3) or Fever Hydrocodone Bitart/Acetaminophen 1 tab 11/24/20 16:56 11/26/20 22:09 Hydrocodone/Acetaminophen (*Crx) 5-325 Mg Tablet PO 1 tab Q4H PRN Administration Moderate Pain (4-6) Al Hydrox/Mg Hydrox/Simethicone 30 ml 11/24/20 16:56 Mag Hydrox/Al Hydrox/Simeth 30 Ml Udc PO QID PRN Dyspepsia Bisacodyl 5 mg 11/24/20 16:56 11/25/20 10:19 Bisacodyl 5 Mg Tablet Ec PO 5 mg DAILY PRN Administration Constipation Budesonide 9 mg 11/25/20 09:00 11/26/20 09:35 Budesonide 3 Mg Cap.Sr.24h PO 9 mg QAM JUSTINE Administration Enoxaparin Sodium 40 mg 11/25/20 09:00 11/27/20 09:21 Enoxaparin 40 Mg/0.4 Ml Syringe SUB-Q Not Given DAILY JUSTINE Famotidine 20 mg 11/25/20 09:00 11/26/20 19:40 Famotidine 20 Mg Tablet PO 20 mg Q12HR JUSTINE Administration Lactated Ringer's 1,000 mls @ 75 mls/hr 11/24/20 14:05 11/27/20 05:26 Lr - Lactated Ringers Iv IV CONT 75 mls/hr .[id number] JUSTINE Administration Piperacillin/Tazobactam/Dextrose 3.375 gm in 50 mls @ 100 mls/hr 11/24/20 16:00 11/27/20 06:32 Zosyn 3.375 Gm/D5w 50ml Pm IVPB 100 mls/hr Q6HR JUSTINE Administration Magnesium Oxide 40
[2020-11-27] MEDS: BUDESONIDE 3 MG CAP.SR.24H 9 MG PO (12:20)
[2020-11-27] MEDS: FAMOTIDINE 20 MG TABLET PO ×2 (12:20→22:28)
[2020-11-27] MEDS: POTASSIUM CHLORIDE 20 MEQ TABLET.ER PO ×2 (12:20→19:04)
[2020-11-27] MEDS: MAGNESIUM OXIDE 400 MG TABLET PO ×2 (12:20→19:05)
[2020-11-27 14:00] VITALS: BP 124/87; PULSE 61; RESP 16; TEMP 36.3; O2SAT 98
--- NOTE | 2020-11-27 17:50 | WPDGICN ---
Assessment and Plan Assessment and plan (1) Crohn's disease of small intestine with fistula: Code(s): K50.013 - Crohn's disease of small intestine with fistula Status: Acute Assessment and Plan: we will start metronidazole intravenously and then send him home on oral metronidazole, assuming this is a fistula. We then would apply for biologic therapy for him. Will no longer need azathioprine once she is approved for biologic (2) Abdominal abscess: Onset Date: ~10/2020 Status: Acute Assessment and Plan: per the patient and his significant other, surgery is okay with him to be discharged. I will therefore see him in the morning and if he tolerates regular diet let him go GI Consult Note Consult date/time: 11/27/20 17:50 HPI: Noe Webb II is a 44 year old male who returns after recent attempted KIM ileocolic resection, open ileocolic resection with side to side ileocolic anastomosis and extensive adhesiolysis on 10-10-20. Patient was seen by Dr. Magana elast week for this problem however now presents the emergency room with worsening of the problem including complaints of abdominal pain right upper quadrant gaseous bloating and flank pain. Please see the ER notes for further details. He reports new back and right sided pain which feels like uncomfortable ache for the past 2 weeks. He is having some abdominal bloating and gas at night. He is eating well and having normal bowel movements. he is tolerating regular diet. I had seen him when he was hospitalized in August with obstruction of the distal small bowel. He told me at that time that Humira and other biologic therapies have been discussed in the past but he had felt that he did not need them. He stated that and that he would rather have steroids and surgery and therefore he did receive IV steroids in as mentioned above did ultimately have a small bowel and right colon resection. He denies blood or air in his urine or burning with urination. Last week he was having sweats and some chills but no definite fever. CT scan was done that at 1st was thought to show an abscess at the side to side anastomosis but is now interpreted as probably a fistula. It would be quite unusual to develop a fistula this fast, but with Crohn's disease that is definitely a possibility. He had a previous resection of terminal ileum and colon in 1996 Review of Systems Review of Systems: All systems reviewed & are unremarkable except as noted in HPI and below PMFSH Past Medical History Medical History History of Crohn's disease Lower abdominal pain Over weight (Unknown) Partial small bowel obstruction Surgical History Surgical History History of colon resection Attempted hand assisted laparoscopic ileocolic resection 2. Open ileocolic resection with side to side ileocolic anastomosis 3. Extensive adhesiolysis History of resection of small bowel 1997 Ileocecectomy Family History Family History Father Hypertension Father Hypertension Family history of elevated blood lipids Social History Social History Smoking packs per day: 0.20 Smoking cigarettes per day: 4.0 Years smoked: 24 Smoking pack-years: 4.80 Smokeless tobacco user: chewing tobacco Second hand tobacco smoke exposure: Yes Additional smoking assessment comments: will order gum Alcohol intake: current Drinks per week: 2 Substance use: never Substance use type: does not use Gender identity (if verbalized by the patient): Male Spiritual care concerns: No Agree to blood products: No Meds Home Medications and Allergies Home Medications Medication Instructions Recorded Confirmed Type azathioprine 50 mg PO DAILY 11/24/20 11/24/20 History
[2020-11-27] MEDS: metroNIDAZOLE 500 MG/ISO 100ML 500 MG/100 ML BAG 100 MG IVPB (19:04)
[2020-11-27 20:10] VITALS: PULSE 57; RESP 18; O2SAT 100
[2020-11-27 20:37] VITALS: O2SAT 97
[2020-11-27 21:30] VITALS: BP 125/89; PULSE 57; RESP 18; TEMP 37.1; O2SAT 100
[2020-11-28] MEDS: metroNIDAZOLE 500 MG/ISO 100ML 500 MG/100 ML BAG 100 MG IVPB (00:33)
[2020-11-28 05:53] VITALS: BP 123/87; PULSE 51; RESP 18; TEMP 36.6; O2SAT 99
[2020-11-28 06:18] LABS: Hematocrit 37.2 % (42.0-52.0); Mean Corpuscular HGB Conc 32.3 g/dl (32-36); Mean Platelet Volume 8.4 fl (7.4-10.4); Platelet Count Result 303 k/mm3 (150-375); Red Cell Distribution Width 12.4 % (11.5-14.5)
[2020-11-28 06:29] LABS: Anion Gap 7 mmol/L (8-16); Blood Urea Nitrogen 4 mg/dL (9-20); Carbon Dioxide 29 mmol/L (22-30); Chloride 105 mmol/L (98-107); Estimated CRCL calculation 87 ml/min; Estimated Glomerular Filt Rate > 60; Glucose 92 mg/dL (75-110); Potassium 3.2 mmol/L (3.4-5.0); Sodium 141 mmol/L (137-145)
--- NOTE | 2020-11-28 07:09 | WPDGIPROGNO ---
Progress Note: A&P Assessment and Plan (1) Crohn's disease of small intestine with fistula: Code(s): K50.013 - Crohn's disease of small intestine with fistula Status: Acute Assessment and Plan: We discussed fistulas and appropriate therapy. He has in the past been resistant to using biologics when Dr. Borjas had brought that up. He states he is now willing to do whatever it takes to keep his Crohn's in control. I explained him that biologics are the ideal agents for closing fistulas with Crohn's disease. I explained that prior to biologics we use metronidazole with some success. Because this is a new, fresh fistula there is a good chance the metronidazole will help initially close the fistula. It is unusual to develop a fistula that soon after curative resection for Crohn's disease. For that reason I think that I will in the near future send him for an MRE to look at that area in more detail. I will send him home on metronidazole 500 mg 3 times a day and azathioprine. We will start the process to get him approved for Humira. TB testing is being done this morning. From my perspective then he can be discharged today Subjective Date/time seen: 11/28/20 07:09 he is tolerating his diet. He denies any new abdominal pain. He has only minimal discomfort near the right costal margin laterally. He had a bowel movement this morning which was normal and nonbloody. Review of Systems Review of Systems: All systems reviewed & are unremarkable except as noted in HPI and below Exam Const: General: alert Orientation/consciousness: patient oriented x3 Resp: Auscultation: clear to auscultation bilaterally Cardio: Rhythm: regular rhythm GI: GI Palp: Yes Soft to palpation and No Tenderness to palpation present (GI) Neuro: General: patient oriented x3 Objective Data Vital Signs Vital Signs: Vital Signs - 24 hr 11/27/20 14:00 11/27/20 20:10 11/27/20 20:37 Temperature 36.3 C L Pulse Rate 61 57 L Respiratory Rate 16 18 Blood Pressure 124/87 Pulse Oximetry 98 100 97 11/27/20 21:30 11/28/20 05:53 Temperature 37.1 C 36.6 C Pulse Rate 57 L 51 L Respiratory Rate 18 18 Blood Pressure 125/89 123/87 Pulse Oximetry 100 99 Intake/Output Intake/Output: Intake & Output 07/09/1211/26/20 11/27/20 11/28/20 23:59 23:59 23:59 23:59 Intake Total 3560 2690 3410 150 Balance 3560 2690 3410 150 Meds/Results Medications: Active Medications Generic Name Dose Route Start Last Admin Trade Name Freq PRN Reason Stop Dose Admin Acetaminophen 1,000 mg 11/25/20 08:27 Acetaminophen 500 Mg Tablet PO Q6H PRN Mild Pain (1-3) or Fever Hydrocodone Bitart/Acetaminophen 1 tab 11/24/20 16:56 11/26/20 22:09 Hydrocodone/Acetaminophen (*Crx) 5-325 Mg Tablet PO 1 tab Q4H PRN Administration Moderate Pain (4-6) Al Hydrox/Mg Hydrox/Simethicone 30 ml 11/24/20 16:56 Mag Hydrox/Al Hydrox/Simeth 30 Ml Udc PO QID PRN Dyspepsia Bisacodyl 5 mg 11/24/20 16:56 11/25/20 10:19 Bisacodyl 5 Mg Tablet Ec PO 5 mg DAILY PRN Administration Constipation Budesonide 9 mg 11/25/20 09:00 11/27/20 12:20 Budesonide 3 Mg Cap.Sr.24h PO 9 mg QAM JUSTINE Administration Enoxaparin Sodium 40 mg 11/25/20 09:00 11/27/20 09:21 Enoxaparin 40 Mg/0.4 Ml Syringe SUB-Q Not Given DAILY JUSTINE Famotidine 20 mg 11/25/20 09:00 11/27/20 22:28 Famotidine 20 Mg Tablet PO 20 mg Q12HR JUSTINE Administration Piperacillin/Tazobactam/Dextrose 3.375 gm in 50 mls @ 100 mls/hr 11/24/20 16:00 11/28/20 00:33 Zosyn 3.375 Gm/D5w 50ml Pm IVPB 100 mls/hr Q6HR JUSTINE Administration Metronidazole 500 mg in 100 mls @ 100 mls/hr 11/27/20 18:00 11/28/20 00:33 Flagyl 500 Mg/Iso Soln 100 Ml IVPB 100 mls/hr Q8HR JUSTINE Administration Magnesium Oxide 400 mg 11/25/20 17:00 11/27/20 19:05 Magnesium Oxide 400 Mg Tablet PO 400 mg BID JUSTINE Administration Morphine Sulfate
[2020-11-28] MEDS: MAGNESIUM OXIDE 400 MG TABLET PO (08:52)
[2020-11-28] MEDS: POTASSIUM CHLORIDE 20 MEQ TABLET.ER PO (08:52)
[2020-11-28] MEDS: ENOXAPARIN 40 MG/0.4 ML SYRINGE SUB-Q (08:52)
[2020-11-28] MEDS: FAMOTIDINE 20 MG TABLET PO (08:52)
[2020-11-28] MEDS: BUDESONIDE 3 MG CAP.SR.24H 9 MG PO (08:52)
--- NOTE | 2020-11-28 10:11 | PM.DS ---
DS: Admitting Diagnosis Admitting Diagnosis Admitting Diagnosis: Abdominal abscess Acute right flank pain Hypokalemia Crohn's disease BMI 31 DS: Discharge Diagnosis Discharge Diagnosis (1) Crohn's disease of small intestine with fistula: Code(s): K50.013 - Crohn's disease of small intestine with fistula Status: Acute (2) RUQ abdominal tenderness: Onset Date: ~10/2020 Code(s): R10.811 - Right upper quadrant abdominal tenderness Status: Acute Assessment and Plan: Right-sided tenderness extending to right flank tenderness. Nearly resolved by discharge with significant improvement with current treatment. [place] to be related to a Crohns flare up. GI has been consulted and recommends metronidazole 500 mg TID and continue azathioprine while awaiting approval to start biologic therapy. (3) Hypokalemia: Onset Date: ~11/24/20 Code(s): E87.6 - Hypokalemia Status: Acute Assessment and Plan: Potassium treated with IV and oral supplementation during his hospitalization. Likely multifactorial from low nutritional/oral intake and chronic diarrhea for Crohns. He does have a history of hypokalemia but does not regularly take a supplement. He has not had good oral intake for 1-2 weeks now and is finally advanced to a low fiber diet today. His potassium on morning labs today was 3.2, mild. We will add another dose of 20 meq KCL this morning to make a total of 60 meq KCL that he will get today. Will discharge him on oral KCL supplementation for the next few days and recheck a BMP within a week. He was instructed to follow-up with his PCP regarding his hypokalemia in the next week and further management will be deferred to his PCP after discharge. (4) Obesity (BMI 30-39.9): Code(s): E66.9 - Obesity, unspecified Status: Acute DS: Summary Hospital Course Reason for hospitalization: Noe is a 44-year-old male with a longstanding history of Crohn's disease who initially underwent an ileocecectomy in 1996, and most recently had an open ileocolic resection with extensive adhesiolysis on 10/10/2020 due to recurrent stricture in his terminal ileum. He was seen as an outpatient in follow-up and was initially healing well after surgery. He was restarted on his azathioprine and was taking this as prescribed once restarted post-op. However, over the past few weeks, he began to have right-sided abdominal pain and tenderness radiating to his right flank. He was seen again in the office by Dr. Magana and an outpatient CT scan of the abdomen/pelvis was ordered to evaluate this pain. Prior to having this approved by insurance, he presented to [facility] on 11/24/20 for evaluation of worsening right-sided abdominal pain. They referred him to [facility] ER for further work-up. CT scan of the abdomen/pelvis in the ER revealed a 4.1 x 2.5 cm fluid collection containing gas, concerning for abscess, in the right mid abdomen located just caudal to the ileocolic anastomosis. He was also found to have a white blood cell count of 11,900 and mild hypokalemia. The patient was then admitted to our service in this setting for further treatment. Hospital Course: He was started on IV Zosyn and his azathioprine was held in the setting of possible infection. When the CT scan was reviewed with the Radiologist after admission, it was felt that the fluid collection initially noted, may be primarily phlegmatous change and would benefit from antibiotics rather than attempting percutaneous drainage. After this discussion, a repeat CT scan abd/pelvis with oral and IV contrast was scheduled for yesterday to re-evaluate and decipher if he has a fluid collection that may be amenable to drainage. WBC quickly trended to normal and he was afebrile. Repeat CT scan suggested evidence of a fistula between 2 adjacent loops of small bowel in the RLQ without any extravasation of oral contrast noted in the fistula, with inflammation, consistent
[2020-11-28] MEDS: POTASSIUM CHLORIDE 20 MEQ TABLET PO (10:14)
== END 2020-11-28 11:10 | disposition home or self-care (01) | DRG 387 ==
LOC: ANHED 14:08 → ANH3MEDSUR 15:45
PROVIDERS: Emergency Medicine Emergency Medical Services; Admitting Provider Surgery; Emergency Provider Emergency Medicine; PCP Family Medicine; Visit Provider Nurse Practitioner Family
DX: K50.013 Crohn's disease of small intestine with fistula (principal); K50.012 Crohn's disease of small intestine with intestinal obstruction; E87.6 Hypokalemia; E66.9 Obesity, unspecified; E66.3 Overweight; Z68.30 Body mass index [BMI] 30.0-30.9, adult; F17.220 Nicotine dependence, chewing tobacco, uncomplicated
CPT/HCPCS: 36415; 74176; 74177; 80048; 80053; 81001; 83605; 83735; 85025; 85027; 85049; 87040; 96361; 96374; 96375; 99285; A9270; J0131; J1650; J2270; J2405; J2543; J3480; J7030; J7120; Q9967

== ENCOUNTER 2020-12-18 09:44 | Outpatient (CLI) | payer BC, SELFPAY ==
[2020-12-18 10:11] LABS: Basophils Absolute Auto 0.1 K/mm3 (0.0-0.1); Basophils Percent Auto 0.5 % (0.2-1.2); Eosinophils Absolute Auto 0.1 K/mm3 (0-0.3); Eosinophils Percent Auto 0.9 % (0-4.4); Hematocrit 40.7 % (42.0-52.0); Hemoglobin 13.4 g/dL (14.0-18.0); Immature Granulocyte Absolute 0.03 K/mm3 (0.00-0.031); Immature Granulocyte Percent A 0.3 % (0-0.5); Lymphocytes Absolute Auto 1.24 K/mm3 (0.9-3.2); Lymphocytes Percent Auto 12.7 % (18.3-44.2); Mean Corpuscular HGB Conc 32.9 g/dl (32-36); Mean Corpuscular Hemoglobin 29.3 pg (26-34); Mean Corpuscular Volume 88.9 fl (80-100); Mean Platelet Volume 8.4 fl (7.4-10.4); Monocytes Percent Auto 10.2 % (2.6-8.5); Neutrophils Absolute Auto 7.4 K/mm3 (1.3-6.7); Neutrophils Percent Auto 75.4 % (45.5-73.1); Platelet Count Result 372 k/mm3 (150-375); Red Blood Count 4.58 M/mm3 (4.6-6.20); Red Cell Distribution Width 12.7 % (11.5-14.5); White Blood Count 9.8 K/mm3 (4.5-10.0)
[2020-12-18 11:26] LABS: Hepatitis B Surface Antigen Negative (Negative)
[2020-12-18 11:31] LABS: HAV RESULT Negative (Negative); Hepatitis B Core IgM Result Negative (Negative)
[2020-12-18 11:43] LABS: Hepatitis C Virus Antibody Negative (Negative)
[2020-12-21 23:48] LABS: NIL 0.02 IU/mL; Quantiferon TB Plus, 1T NEGATIVE (NEGATIVE)
== END 2020-12-18 09:45 | disposition home or self-care (01) ==
LOC: ANHLAB 09:47
PROVIDERS: PCP Family Medicine; Visit Provider Internal Medicine Gastroenterology
DX: K50.013 Crohn's disease of small intestine with fistula (principal)
CPT/HCPCS: 36415; 80074; 85025; 86480

== ENCOUNTER 2020-12-21 06:39 | Outpatient (CLI) | payer BC, SELFPAY ==
--- NOTE | ~2020-12-21 | CT_ITS ---
EXAMINATION: CT abdomen pelvis w con EXAM DATE: 12/21/2020 07:19 INDICATION: K50.013 - Crohn's disease of small intestine with fistula. Right flank to groin pain. Res ection surgery in September. TECHNIQUE: Spiral CT of the abdomen and pelvis was performed following intravenous injection of 100 m L Omnipaque 350. Axial, coronal and sagittal images of the abdomen and pelvis were reviewed. The do se-length product (DLP) for this examination was 645.11 mGy-cm. The exposure was tailored according to patient size (auto mA exposure control), and iterative reconstruction (ASIR) was used as additiona l dose reduction technique. Comparison is made to prior examination from 11/27/2020. FINDINGS: The liver, spleen, adrenal glands and pancreas are unremarkable. Gallbladder is unremarkab le. No biliary obstruction. Portal and splenic veins are patent. Kidneys enhance symmetrically. T here is no hydronephrosis. The prostate is unremarkable. The bladder is unremarkable. Surgical changes, cecal and probably terminal ileal resection. No change in the phlegmonous region, f istula between 2 loops of small bowel in the right lower quadrant, with several small foci of gas ins aretha. This spiculated region measures about 4 cm, is contiguous to the right iliopsoas muscle. Diffuse colonic wall fatty infiltration, finding can be seen with chronic inflammation, inflammatory bowel d isease. There is colonic fluid, correlate for diarrhea. No free intraperitoneal gas. Mesenteric lymph adenopathy again noted, unchanged and probably reactive given bowel findings. The right ureter passes medial to phlegmonous fistula described above, some fat stranding contiguous to it but no hydronephrosis. No free intraperitoneal gas. The heart is normal in size. There are no pericardial or pleural eff usions. The lung bases are unremarkable. There are no osteoblastic or osteolytic lesions identified . IMPRESSION: 1. Stable exam, appearance to right lower quadrant fistula and phlegmon. 2. Mesenteric lymphadenopathy probably reactive. Reviewed, dictated and finalized at location B.
== END 2020-12-21 06:40 | disposition home or self-care (01) ==
PROVIDERS: PCP Family Medicine; Visit Provider Internal Medicine Gastroenterology
DX: K50.013 Crohn's disease of small intestine with fistula (principal); R59.0 Localized enlarged lymph nodes
CPT/HCPCS: 74177; Q9967

== ENCOUNTER → 2021-06-01 07:15 | Outpatient (CLI) | payer BC, SELFPAY ==
[2021-06-02 16:24] LABS: SARS-CoV-2 RNA PCR Positive
== END ==
PROVIDERS: PCP Family Medicine; Visit Provider Family Medicine
DX: U07.1 COVID-19 (principal); J06.9 Acute upper respiratory infection, unspecified
CPT/HCPCS: C9803; U0003; U0005

== ENCOUNTER 2021-12-26 14:33 | Outpatient (CLI) | payer BC, SELFPAY ==
[2021-12-26 15:04] LABS: Basophils Percent Auto 0.5 % (0.2-1.2); Eosinophils Absolute Auto 0.2 K/mm3 (0-0.3); Eosinophils Percent Auto 2.8 % (0-4.4); Hematocrit 43.8 % (42.0-52.0); Hematocrit 44.2 % (42.0-52.0); Hemoglobin 15.3 g/dL (14.0-18.0); Hemoglobin 15.5 g/dL (14.0-18.0); Immature Granulocyte Absolute 0.02 K/mm3 (0.00-0.031); Immature Granulocyte Percent A 0.3 % (0-0.5); Lymphocytes Absolute Auto 1.76 K/mm3 (0.9-3.2); Lymphocytes Percent Auto 22.6 % (18.3-44.2); Mean Corpuscular HGB Conc 34.9 g/dl (32-36); Mean Corpuscular HGB Conc 35.1 g/dl (32-36); Mean Corpuscular Hemoglobin 31.7 pg (26-34); Mean Corpuscular Volume 90.7 fl (80-100); Mean Corpuscular Volume 91.1 fl (80-100); Mean Platelet Volume 8.8 fl (7.4-10.4); Mean Platelet Volume 8.9 fl (7.4-10.4); Monocytes Absolute Auto 0.7 K/mm3 (0.1-0.6); Monocytes Percent Auto 8.6 % (2.6-8.5); Neutrophils Absolute Auto 5.1 K/mm3 (1.3-6.7); Neutrophils Percent Auto 65.2 % (45.5-73.1); Platelet Count Result 271 k/mm3 (150-375); Platelet Count Result 273 k/mm3 (150-375); Red Blood Count 4.83 M/mm3 (4.6-6.20); Red Blood Count 4.85 M/mm3 (4.6-6.20); Red Cell Distribution Width 13.3 % (11.5-14.5); Red Cell Distribution Width 13.4 % (11.5-14.5); White Blood Count 7.5 K/mm3 (4.5-10.0); White Blood Count 7.8 K/mm3 (4.5-10.0)
[2021-12-26 15:21] LABS: Alanine Aminotransferase 62 U/L (6-50); Albumin Level 4.3 g/dL (3.5-5.1); Alkaline Phosphatase 71 U/L (38-126); Anion Gap 11 mmol/L (8-16); Aspartate Amino Transferase 46 U/L (17-59); Bilirubin,Total 0.4 mg/dL (0.2-1.3); Blood Urea Nitrogen 14 mg/dL (9-20); CRP < 0.5 mg/dL (<1.0); Calcium 9.3 mg/dL (8.4-10.2); Carbon Dioxide 21 mmol/L (22-30); Chloride 109 mmol/L (98-107); Estimated Glomerular Filt Rate > 60; Glucose 122 mg/dL (65-110); Potassium 3.2 mmol/L (3.4-5.0); Sodium 141 mmol/L (137-145)
[2021-12-26 16:22] LABS: Folic Acid 9.2 ng/mL (2.76->20)
[2021-12-26 16:37] LABS: Erythrocyte Sedimentation Rate 4 mm/hr (0-20)
[2021-12-26 16:57] LABS: Hepatitis B Surface Antigen Negative (Negative)
[2021-12-26 17:03] LABS: HAV RESULT Negative (Negative); Hepatitis B Core IgM Result Negative (Negative)
[2021-12-26 17:15] LABS: Hepatitis B Surface Anti Res Negative; Hepatitis C Virus Antibody Negative (Negative)
[2021-12-28 13:36] LABS: NIL 0.01 IU/mL; Quantiferon TB Plus, 1T NEGATIVE (NEGATIVE); TB1-NIL 0.01 IU/mL; TB2-NIL 0.01 IU/mL
[2021-12-30 07:27] LABS: Hepatitis A Antibody Total Nonreactive (Nonreactive); Hepatitis B Core Ab Total Nonreactive (Nonreactive)
[2021-12-31 15:31] LABS: Vitamin D 1,25 (OH)2 Total 36 pg/mL (18-72); Vitamin D2 1,25 (OH)2 <8 pg/mL; Vitamin D3 1,25 (OH)2 36 pg/mL
== END 2021-12-26 14:34 | disposition home or self-care (01) ==
LOC: ANHLAB 14:35
PROVIDERS: Internal Medicine Gastroenterology; PCP Family Medicine; Visit Provider Nurse Practitioner
DX: K50.013 Crohn's disease of small intestine with fistula (principal); Z51.81 Encounter for therapeutic drug level monitoring; Z79.899 Other long term (current) drug therapy; Z11.59 Encounter for screening for other viral diseases
CPT/HCPCS: 36415; 80053; 80074; 82607; 82652; 82746; 85025; 85027; 85652; 86140; 86480; 86704; 86706; 86708

== ENCOUNTER 2022-01-17 00:43 | Day surgery (SDC) | payer BC, SELFPAY ==
--- NOTE | 2022-01-16 16:46 | PM.HPGS ---
History of Present Illness History of Present Illness Consent: Risks, benefits, and alternatives have been discussed and questions answered. Patient agrees to proceed with procedure. Chief complaint: crohn's disease Narrative: Noe Webb II is a 46 year old male who has a history of Crohn's disease with complication of? fistula and SBO and he has underwent on October 10, 2020 an open resection with lysis of severe adhesions and new ilealcolic anastomosis with Dr. Magana due to recurrent fiborstenotic crohn's disease. He had previous operation in 1996.? He was seen 1 year ago was having a lot of abdominal pain and this was thought to be possibly abscess or fistula complication, he was started on Flagyl and abdominal pain resolved.? He is reporting 8-10 bowel movements per day.? He denies any abdominal pain, melena or hematochezia.? Denies any weight loss, abnormal skin rashes, or lesions, or eye problems.? He was prescribed on a Humira and it was approved but was going to cost him 200 a month so never started. He has never been on a biologic. Review of Systems Review of Systems: All systems reviewed & are unremarkable except as noted in HPI and below PMFSH Past Medical History Medical History High risk medication use History of Crohn's disease Lower abdominal pain Over weight (Unknown) Partial small bowel obstruction Surgical History Surgical History History of colon resection Attempted hand assisted laparoscopic ileocolic resection 2. Open ileocolic resection with side to side ileocolic anastomosis 3. Extensive adhesiolysis History of resection of small bowel 1996 Ileocecectomy Family History Family History Father Hypertension Father Hypertension Family history of elevated blood lipids Social History Social History Smoking packs per day: 0.20 Smoking cigarettes per day: 4.0 Years smoked: 24 Smoking pack-years: 4.80 Smoking status: Current every day smoker Smokeless tobacco user: chewing tobacco Second hand tobacco smoke exposure: Yes Additional smoking assessment comments: will order gum Alcohol intake: current Drinks per week: 2 Substance use: never Substance use type: does not use Living arrangements: with family Gender identity (if verbalized by the patient): Male Spiritual care concerns: No Agree to blood products: Yes Meds Home Medications and Allergies Home Medications Medication Instructions Recorded Confirmed Type azathioprine 50 mg tablet 100 mg PO DAILY #60 tabs 12/26/21 01/17/22 Rx amlodipine 10 mg tablet 10 mg PO DAILY #30 tabs 01/07/22 01/17/22 Rx Allergies Allergy/AdvReac Type Severity Reaction Status Date / Time No Known Allergies Allergy Verified 01/17/22 10:12 Exam Const: General: alert Orientation/consciousness: patient oriented x3 Resp: Auscultation: clear to auscultation bilaterally Cardio: Rhythm: regular rhythm GI: GI Palp: Yes Soft to palpation and No Tenderness to palpation present (GI) Neuro: General: patient oriented x3 Assessment and Plan Assessment and plan (1) Crohn's disease of small intestine with fistula: Code(s): K50.013 - Crohn's disease of small intestine with fistula Status: Acute Assessment and Plan: Colonoscopy with possible biopsy or polypectomy or cautery or injection of substances.
[2022-01-17 10:14] VITALS: BP 129/90; PULSE 99; RESP 17; TEMP 36.4; O2SAT 98; BMI 32.0
[2022-01-17] MEDS: LACTATED RINGERS 1,000 ML 150 ML IV CONT (10:21)
--- NOTE | 2022-01-17 10:48 | P.PNAN_ITS ---
Anes - Initial Pre Proc Eval Procedure: Operation Date: 01/17/22 11:30 Proposed Procedures p Colonoscopy - Gallo Tejeda MD Date/Time: 01/17/22 10:48 Surgeon: Gallo Tejeda MD Pre Op Diagnosis: crohn's disease Patient Data Age: 46 Gender: M Height: 1.85 m Weight: 110.1 kg Last Vital Signs Temp 97.6 F 01/17/22 10:14 Pulse 99 01/17/22 10:14 Resp 17 01/17/22 10:14 BP 129/90 01/17/22 10:14 Pulse Ox 98 01/17/22 10:14 O2 Del Method Room Air 01/17/22 10:14 Allergies Allergy/AdvReac Type Severity Reaction Status Date / Time No Known Allergies Allergy Verified 01/17/22 10:12 Home Medications Medication Instructions Recorded Confirmed Type azathioprine 50 mg tablet 100 mg PO DAILY #60 tabs 12/26/21 01/17/22 Rx amlodipine 10 mg tablet 10 mg PO DAILY #30 tabs 01/07/22 01/17/22 Rx Patient hx anesthesia problems: none Family hx anesthesia problems: none Results Review: All pre-operative results and documents have been reviewed as part of the pre- operative evaluation. [facility] Past Medical History Medical History (Updated 12/26/21 @ 14:25 by Sally Fuentes APRN) High risk medication use History of Crohn's disease Lower abdominal pain Over weight (Unknown) Partial small bowel obstruction Surgical History Surgical History History of colon resection Attempted hand assisted laparoscopic ileocolic resection 2. Open ileocolic resection with side to side ileocolic anastomosis 3. Extensive adhesiolysis History of resection of small bowel 1997 Ileocecectomy Family History Family History Father Hypertension Father Hypertension Family history of elevated blood lipids Social History Social History Smoking packs per day: 0.20 Smoking cigarettes per day: 4.0 Years smoked: 24 Smoking pack-years: 4.80 Smoking status: Current every day smoker Smokeless tobacco user: chewing tobacco Second hand tobacco smoke exposure: Yes Additional smoking assessment comments: will order gum Alcohol intake: current Drinks per week: 2 Substance use: never Substance use type: does not use Living arrangements: with family Gender identity (if verbalized by the patient): Male Spiritual care concerns: No Agree to blood products: Yes Anes - Eval Final PreProcedure Day of Procedure 01/17/22 10:48 Patient weight: obese Heart: regular rate and rhythm Lungs: clear to auscultation Airway: Mallampati scale class II Neurological: alert and oriented Last oral intake: >/= 8 hours ASA classification: III Emergent: no Anesthetic plan: proceed Anesthesia type and monitoring: general GIVS and standard monitoring Results Review: All pre-operative results and documents have been reviewed as part of the pre- operative evaluation. Informed Consent: The patient's anesthetic plan and its attendant risks and benefits were discussed with the patient/family/POA. Questions were solicited and answers provided to the satisfaction of the patient/family/POA.
[2022-01-17 11:39] VITALS: BP 117/81; PULSE 82; RESP 22; O2SAT 99
[2022-01-17 11:49] VITALS: BP 117/86; PULSE 76; RESP 18; O2SAT 98
[2022-01-17 11:59] VITALS: BP 118/83; PULSE 72; RESP 20; O2SAT 98
== END 2022-01-17 12:07 | disposition home or self-care (01) ==
PROVIDERS: PCP Family Medicine; Visit Provider Internal Medicine Gastroenterology
PROC: 0DJD8ZZ Inspection of Lower Intestinal Tract, Via Natural or Artificial Opening Endoscopic (ICD-10-PCS; CPT 45378; principal; 2022-01-17 11:30)
DX: K50.90 Crohn's disease, unspecified, without complications (principal); Z98.0 Intestinal bypass and anastomosis status; Z79.899 Other long term (current) drug therapy; F17.210 Nicotine dependence, cigarettes, uncomplicated; E66.9 Obesity, unspecified; Z68.32 Body mass index [BMI] 32.0-32.9, adult
CPT/HCPCS: 45378; J2704; J7120

== ENCOUNTER 2023-03-10 14:54 | Outpatient (CLI) | payer BC, SELFPAY ==
[2023-03-10 15:57] LABS: Basophils Absolute Auto 0.1 K/mm3 (0.0-0.1); Eosinophils Absolute Auto 0.2 K/mm3 (0-0.3); Eosinophils Percent Auto 2.1 % (0-4.4); Hemoglobin 16.9 g/dL (14.0-18.0); Immature Granulocyte Absolute 0.02 K/mm3 (0.00-0.031); Immature Granulocyte Percent A 0.2 % (0-0.5); Lymphocytes Absolute Auto 1.57 K/mm3 (0.9-3.2); Lymphocytes Percent Auto 19.2 % (18.3-44.2); Mean Corpuscular HGB Conc 33.8 g/dl (32-36); Mean Corpuscular Hemoglobin 31.3 pg (26-34); Mean Corpuscular Volume 92.6 fl (80-100); Monocytes Absolute Auto 0.9 K/mm3 (0.1-0.6); Monocytes Percent Auto 11.1 % (2.6-8.5); Neutrophils Absolute Auto 5.4 K/mm3 (1.3-6.7); Neutrophils Percent Auto 66.4 % (45.5-73.1); Platelet Count Result 263 k/mm3 (150-375); Red Cell Distribution Width 13.7 % (11.5-14.5); White Blood Count 8.2 K/mm3 (4.5-10.0)
[2023-03-17 18:42] LABS: Calprotectin, Stool 310 mcg/g
== END 2023-03-10 14:55 | disposition home or self-care (01) ==
LOC: ANHLAB 14:56
PROVIDERS: PCP Family Medicine; Visit Provider Internal Medicine Gastroenterology
DX: K50.013 Crohn's disease of small intestine with fistula (principal)
CPT/HCPCS: 36415; 83993; 85025

== ENCOUNTER 2023-10-02 11:23 | Outpatient (CLI) | payer BC, SELFPAY ==
[2023-10-02 12:27] LABS: Hematocrit 49.7 % (42.0-52.0); Hemoglobin 17.4 g/dL (14.0-18.0); Mean Corpuscular Hemoglobin 31.4 pg (26-34); Mean Corpuscular Volume 89.7 fl (80-100); Platelet Count Result 234 k/mm3 (150-375); Red Blood Count 5.54 M/mm3 (4.6-6.20); Red Cell Distribution Width 13.6 % (11.5-14.5); White Blood Count 8.2 K/mm3 (4.5-10.0)
[2023-10-02 12:38] LABS: Alanine Aminotransferase 45 U/L (6-50); Albumin Level 4.5 g/dL (3.5-5.1); Alkaline Phosphatase 70 U/L (38-126); Anion Gap 10 mmol/L (4-12); Aspartate Amino Transferase 44 U/L (17-59); Bilirubin,Total 0.7 mg/dL (0.2-1.3); Blood Urea Nitrogen 13 mg/dL (9-20); CRP < 0.5 mg/dL (<1.0); Calcium 9.6 mg/dL (8.4-10.2); Carbon Dioxide 22 mmol/L (22-30); Chloride 108 mmol/L (98-107); Estimated Glomerular Filt Rate > 60; Glucose 109 mg/dL (65-110); Potassium 3.6 mmol/L (3.4-5.0); Sodium 140 mmol/L (137-145)
[2023-10-02 13:54] LABS: Erythrocyte Sedimentation Rate 1 mm/hr (0-20)
== END 2023-10-02 11:24 | disposition home or self-care (01) ==
LOC: ANHLAB 11:24
PROVIDERS: PCP Family Medicine; Visit Provider Nurse Practitioner
DX: K50.013 Crohn's disease of small intestine with fistula (principal); Z79.899 Other long term (current) drug therapy
CPT/HCPCS: 36415; 80053; 85027; 85652; 86140

== ENCOUNTER 2023-10-05 13:53 | Outpatient (CLI) | payer BC, SELFPAY ==
[2023-10-13 17:38] LABS: Calprotectin, Stool 36 mcg/g
== END 2023-10-05 13:54 | disposition home or self-care (01) ==
PROVIDERS: Nurse Practitioner Family; PCP Family Medicine; Visit Provider Nurse Practitioner
DX: K50.90 Crohn's disease, unspecified, without complications (principal); R19.5 Other fecal abnormalities; K50.013 Crohn's disease of small intestine with fistula; Z79.899 Other long term (current) drug therapy
CPT/HCPCS: 83993

== ENCOUNTER 2024-02-04 15:56 | Outpatient (CLI) | payer BC, SELFPAY ==
[2024-02-04 18:11] LABS: Hepatitis B Core IgM Result Negative (Negative)
[2024-02-06 07:14] LABS: Hepatitis B Core Ab Total NON-REACTIVE (NON-REACTIVE)
[2024-02-06 14:19] LABS: NIL 0.01 IU/mL; Quantiferon TB Plus, 1T NEGATIVE (NEGATIVE)
== END 2024-02-04 15:57 | disposition home or self-care (01) ==
LOC: ANHLAB 15:57
PROVIDERS: PCP Family Medicine; Visit Provider Nurse Practitioner Family
DX: K50.90 Crohn's disease, unspecified, without complications (principal)
CPT/HCPCS: 36415; 86480; 86704; 86705

== ENCOUNTER 2024-09-07 07:46 | Outpatient (CLI) | payer BC, SELFPAY ==
--- OUTSIDE RECORDS SUMMARY | 2024-09-07 07:49 | XMS_ITS ---
Author Organization 1 OF Khadijah ray [facility] Address [address] [place] [address] Care Team Providers Care Curb Machine Operator Name Role Phone UNKNOWN, UNKNOWN Primary Care Provider Unavailab Yefri Becker Unavailable REASON FOR VISIT Ins. Verification Encounters Encounter Location Date Provider Diagnosis 1 OF [facility] [address] [place] [address] 04/21/2023 Yefri Mayo Plan Of Treatment No Information Progress Notes * Noe WEBB:12/31 (47 yo M)Acc No.[id number]:04/21/2023 Patient: Noe LEALLuke :1975 A ge:47 Y S ex:Male Address:[address], [place] [address] * true * Date: Generated for Felisai ada/Yon/eTransmitting on: 0 09/07/2024 07:49 AM CDT
--- OUTSIDE RECORDS SUMMARY | 2024-09-07 07:49 | XMS_ITS ---
Author Organization [address] [facility] Address [address] [place] [address] Care Team Providers Care Retort Pre Cooker Name Role Phone UNKNOWN, UNKNOWN Primary Care Provider Unavailab Yefri Becker Unavailable REASON FOR VISIT Arnaldo - 30 day EOS visit RT foot Encounters Encounter Location Date Provider Diagnosis [address] 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 Subject advised the surgery is healing as expected for 4 weeks post-op with no concerns with the x-rays today. At this point the paitent may transition to wearing a good quality supportive tennis or the surgical shoe but was advised to continue to limit WB activity and specifically avoid any high impact activity until further notice. If any sudden increase in pain or swelling patient was advised to return to wearing the cam walker boot and call our office for evaluation. Otherwise RTO in [address] Paulson for follow-up. Plan Of Treatment Treatment Notes Assessment Notes Surgical aftercare, musculoskeletal syst em Exam of the RT lower extremity was performed and RT foot x-rays evaluated and study related procedures performed per protocol. Subject advised the surgery is healing as expected for 4 weeks post-op with no concerns with the x-rays today. At this point the paitent may transition to wearing a good quality supportive tennis or the surgical shoe but was advised to continue to limit WB activity and specifically avoid any high impact activity until further notice. If any sudden increase in pain or swelling patient was advised to return to wearing the cam walker boot and call our office for evaluation. Otherwise RTO in [address] Paulson for follow-up. Progress Notes * Noe WEBB:[birth year] (48 yo M)Acc No.[id number]:03/23/2023 CLINICAL TRIAL RELATED VISIT Patient: Maldonado OLMOSNoe Provider: Khadijah Mayo DPM :1975 A ge:47 Y S ex:Male Date:03/23/2023 Address:[address] [place] [address] Pcp:UNKNOWN UNKNOWN Subjective: * Chief Complaints: * 1 . Arnaldo - 30 day EOS visit RT foot. * HPI: P rimary reason for visit:: Research Study: [age] y/o male RTO for 30 day EOS visit regarding RT bunionectomy. P atient states he is doing well and denies any significant pain and reports he has not needed to take anything for pain. He did purchase a pair of [employer] shoes and admits he has been wearing them while driving and while walking from his car to his office or home before and after driving, otherwise states he has been wearing the cam walker boot the rest of the time. . * Medical History: C rohn's disease, Hypertension, Rotator cuff tear, Right foot bunion. Objective: * Vitals: * Examination: G eneral Examination: Constitutional / Appearance: N o acute distress , Well nourished, Appropriate personal hygiene. Mental status: C ooperative, Oriented to person, place and time, Mood and affect: normal, Judgement and intellect: normal with appropriate response to questions. Post-op evaluation: R ight foot: , Incision(s) remain closed with no dehiscence or SOI. There is some stable eschar noted to the incision but no drainage or SOI. M ild edema of forefoot. No pain with palpation of 1st ray. No pain or crepitus with ROM of the hallux.. D iagnostic Studies: : X-rays of right lower extremity: 3 views of right foot: , Fixation appears stable with no change in position, no evidence of loosening or fracture. , No change in alignment of osteotomy is noted. Mild soft tissue edema noted.. Assessment: * Assessment: 1. A cquired hallux valgus with metatarsus primus varus of right foot - Q66.211 (Primary) ? 2 . H allux valgus of right foot - M20.11 3 . S urgical aftercare, musculoskeletal system - Z47.89 Plan: * Treatment: * Procedure Codes: 7 3630 X-RAY FOOT (3 views), Modifiers: LT * Images: Drawin R T foot photo Drawin R T foot photo * Electronic signature of Jona Mayo DPM on 09/07/2024 at 07:49 AM CDT Sign off status: Pending * Provider: Khadijah Mayo DPM Date: Generated for Joan caballero/Yon/Stephan on: 0 09/07/2024 07:49 AM CDT History and Physical Notes * HPI (History of Present Illness) Category Sub-Category Detail Notes Category Not es Primary reason for visit: Research Study: 47 y/o male RTO for 30 day E OS visit regarding RT bunionectomy. Patient states he is doing well and denies any significant pain and reports he has not needed to take anything for pain. He did purchase a pair of New Balance shoes and admits he has been wearing them while driving and while walking from his car to his office or home before and after driving, otherwise states he has been wearing the cam walker boot the rest of the time. Examination Category Sub-Category Detail Notes Category Not es General Examination Mental status: Cooperative, Oriented to person, place and time, Mood and affect: normal, Judgement and intellect: normal with appropriate response to questions Post-op evaluation: Right foot: , Incisi on(s) remain closed with no dehiscence or SOI. There is some stable eschar noted to the incision but no drainage or SOI. Mild edema of forefoot. No pain with palpation of 1st ray. No pain or crepitus with ROM of the hallux. Constitutional / Appearance: No acute di stress , Well nourished, Appropriate personal hygiene Diagnostic Studies: X-rays of right lower extrem ity: 3 views of right foot: , Fixation appears stable with no change in position, no evidence of loosening or fracture. , No change in alignment of osteotomy is noted. Mild soft tissue edema noted.
--- OUTSIDE RECORDS SUMMARY | 2024-09-07 07:49 | XMS_ITS | Clinical Summary ---
Author Organization [facility] Address [facility] [place] [address] Care Team Providers Care Pulvi Mixer Operator Name Role Phone Joelle Lawson MD Primary Care Provider [phone] Medications oxymetazoline (AFRIN 12 HOUR) 0.05 % nasal spray 2-3 sprays in each nostril q10-12h prn congestion; Max: 6 sprays in each nostril/24h; Info: D/C if rebound congestion occurs Do not use for more than 72 hours. 30 mL Active Immunizations Immunization Administration Dates Next Due Tdap (Boostrix) 12/12/2021 Social History Tobacco Use Types Packs/Day Years Used Date Smoking Tobacco: Some Days Smokeless Tobacco: Never Alcohol Use Standard Drinks/Week Comments Yes 0 (1 standard drink = 0.6 oz pur e alcohol) Sex and Gender Information Value Date Recorded Sex Assigned at Not on file Legal Sex Male 11:07 AM CDT Gender Identity Not on file Sexual Orientation Not on file Last Filed Vital Signs Vital Sign Reading Time Taken Comments Blood Pressure 159/115 12/12/2021 1:57 PM CDT Pulse 78 12/12/2021 1:57 PM CDT Temperature 37 C (98.6 F) 12/12/2021 11:29 AM CDT Respiratory Rate 18 12/12/2021 11:2 9 AM CDT Oxygen Saturation 99% 12/12/2021 1:57 PM CDT Inhaled Oxygen Concentration - - Weight 116.5 kg (256 lb 13.4 oz) 2021 11:29 AM CDT Height 185.4 cm (6' 1 ) 12/12/2021 11:2 9 AM CDT Body Mass Index 33.89 12/12/2021 11:29 AM CDT Plan of Treatment Health Maintenance Due Date Last Done Comments Colorectal Cancer Screening Colonoscopy (10 Years) 1975 Annual Physical 01/01/1980 Pneumococcal Vaccine: Pediat rics (0 to 5 Years) and At-Risk Patients (6 to 49 Years) (1 of 2 - PCV) 1982 Hepatitis C 1994 Hepatitis B Vaccines (1 of 3 - 19+ 3-dose series) 01/01/1996 COVID-19 Vaccine (1 - 2023-2 5 season) 2024 DTaP, Tdap and Td Vaccines ( 2 - Td or Tdap) 12/13/2031 12/12/2021 Meningococcal B Vaccine Aged Out No l onger eligible based on patient's age to complete this topic Meningococcal Vaccine Aged Out No rosamaria josh eligible based on patient's age to complete this topic RSV Immunizations Under 20 Months Aged Out No longer eligible based on patient's age to complete this topic Insurance [employer] Care Teams Pulvi Mixer Operator Relationship Specialty Start Date End Date Joelle Lawson MD [address] [place] [address] PCP - General FAMILY PRACTICE 12/12/21
--- OUTSIDE RECORDS SUMMARY | 2024-09-07 07:49 | XMS_ITS | Patient Health Record ---
Author Organization 1 OF Khadijah ray [facility] Address [address] [facility] [address] [place] [address] Care Team Providers Care Hosiery Mater Name Role Phone UNKNOWN, UNKNOWN Primary Care Provider UnavailYefri Pérez Unavailable Allergies No Known Allergies Reason For Referral No Information Medications Medication SIG (Take, Route, Fr equency, Duration) Notes Start Date End Date Status azaTHIOprine Active amLODIPine Besylate Active hydroCHLOROthiazide Active Problems Problem Type SNOMED Code ICD Code Onset Dates Problem Status W/U Status Risk Notes Problem Acquired hallux valgus (56456974) Hallux valgus (acquired), right foot (M20.11) Active confirmed Problem Hallux valgus of right foot (3546503513) Hallux valgus of right foot (M20.11) Active confirmed Problem 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 (Q66.211) Active confirmed Plan Of Treatment No Information Insurance Providers Payer Name Payer Address Payer Phone Subscriber Number Group Number Insured Name Patient Relationship to Insured Coverage Start Date Coverage End Date [facility] [address] [place] [address] [id number] Tracey Noe Self - patient is the insured Medical (General) History Medical History History ICD Code crohn's disease hypertension rotator cuff tear Right foot bunion Surgical History Surgery Date(Month/Year) colon resection colon resection 09/2019 rotator cuff repair vasectomy
--- OUTSIDE RECORDS SUMMARY | 2024-09-07 07:49 | XMS_ITS | Clinical Summary ---
Author Organization [facility] Address [address] [address] Phone Care Team Providers Care Superintendent Transmission Name Role Phone Joelle Lawson MD Primary Care Provider [phone] Social History Tobacco Use Types Packs/Day Years Used Date Smoking Tobacco: Never Assessed Sex and Gender Information Value Date Recorded Sex Assigned at Not on file Legal Sex Male 9:27 PM CDT Gender Identity Not on file Sexual Orientation Not on file Plan of Treatment Health Maintenance Due Date Last Done Comments Hepatitis C Virus (HCV) Screening 1975 TdaP Immunization 1975 Hepatitis B Immunization (1 of 3 - 19+ 3-dose series) 01/01/1996 Influenza Immunization (#1) 2024 SARS-COV-2 Immunization ( season) 2024 Colonoscopy 10/07/2025 10/08/2015 Colorectal Cancer Screening 10/07/2025 Respiratory Syncytial Virus (RSV) Immunization (Adult) (1 - 1-dose 75+ series) 01/01/2052 10/08/2015 Meningococcal Immunization (ACWY) Aged Out No longer eligible based on patient's age to complete this topic Pneumococcal Immunization Combined Aged Out No longer eligible based on patient's age to complete this topic Rotavirus Immunization Aged Out No lo nger eligible based on patient's age to complete this topic Procedures Procedure Name Priority Date/Time Associated Diagnosis Comments COLONOSCOPY Routine 10/08/2015 from Last 3 Months or Most Recently Relevant to Health Maintenance Results * HM COLONOSCOPY (10/08/2015) Maurice Augustine MD PROCEDURE/MINOR SURGICAL ORDIndar GARCIA Final Result from Last 3 Months or Most Recently Relevant to Health Maintenance Insurance Care Teams Superintendent Transmission Relationship Specialty Start Date End Date Joelle Lawson MD [address] [place] [address] PCP - General Family Medicine 01/06/19
--- OUTSIDE RECORDS SUMMARY | 2024-09-07 07:50 | XMS_ITS ---
Author Organization 1 OF Khadijah ray [facility] Address [address] [facility] [address] [place] [address] Care Team Providers Care Soil Conservation Technician Name Role Phone UNKNOWN, UNKNOWN Primary Care Provider Unavailab Yefri Becker Unavailable LoreneTez grande Unavailable [phone] Allergies No Known Allergies REASON FOR VISIT Bunionectomy Medications Medication SIG (Take, Route, Fr equency, Duration) Notes Start Date End Date Status azaTHIOprine Active amLODIPine Besylate Active hydroCHLOROthiazide Active Vital Signs Height 73 in 04/21/2023 Weight 260 lbs 04/21/2023 BMI 34.3 kg/m2 04/21/2023 Encounters Encounter Location Date Provider Diagnosis 1 OF Khadijah Mayo [facility] [address] [facility] [address] [place] [address] 04/21/2023 Tez Lorene 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 X-rays were obtained and reviewed and he has already progressed to returning to regular daily activities without restrictions and I would like him to continue to do that if comfortable. He would like to go ahead and basically play by ear from now on and states that if he has any concerns he will contact us but overall he is very pleased with the outcome. Again if he has any concerns or issues he is to contact us immediately and we will address those. Plan Of Treatment Treatment Notes Assessment Notes Other I did examine and ev aluate the patient today. X-rays were obtained and reviewed and he has already progressed to returning to regular daily activities without restrictions and I would like him to continue to do that if comfortable. He would like to go ahead and basically play by ear from now on and states that if he has any concerns he will contact us but overall he is very pleased with the outcome. Again if he has any concerns or issues he is to contact us immediately and we will address those. Next Appt Details Follow Up: prn, Reason: Progress Notes * Noe WEBB:[birth year] (47 yo M)Acc No.[id number]:04/21/2023 Progress Note Patient: Maldonado OLMOS Noe HarishLuke Provider: Farrah Paulson DPM :1975 A ge:47 Y S ex:Male Date:04/21/2023 Address:[address] [place] [address] Pcp:UNKNOWN UNKNOWN Subjective: * Chief Complaints: * B unionectomy * HPI: Ryan Forrest assisting with visit:: HPI/Rooming: Sendy mendoza reason for visit:: Date of surgery: . Surgery procedures performed: R ight foot: bunionectomy .? 47 y/o male RTO 8 weeks s/p RIGHT foot surgery. A t last visit treatment consisted of advised pt may transition to wearing good supportive tennis or sx shoe, advised to continue to limit WB activity, avoid high impact activity, and if sudden increase in pain or swelling return to CAM boot. * Medical History: * Medications: T akinghydroCHLOROthiazide amLODIPine Besylate azaTHIOprine Medication List reviewed and reconciled with the patientTaking hydroCHLOROthiazide Taking amLODIPine Besylate Taking azaTHIOprine Medication List reviewed and reconciled with the patient * Allergies: N .K.D.A.no[Allergies Verified] Objective: * Vitals: W t:260lbs, Wt-k.93 kg, Ht: 73 in, BMI:34.3Index. * Examination: G eneral Examination: Constitutional / Appearance: N o acute distress , Well nourished, Appropriate personal hygiene. Mental status: C ooperative, Oriented to person, place and time, Mood and affect: normal, Judgement and intellect: normal with appropriate response to questions. Shoes today: C owboy boots. T he incision site right foot is well coapted with excellent scar formation appreciated. No evidence of any cardinal signs of infection appreciated. Adequate correction of the deformity is appreciated however with some residual lateral deviation of the hallux. Normal range of motion of the right first MTPJ without pain or crepitus appreciated and there is no pain with palpation to the distal right first metatarsal. Muscle strength for plantarflexion and dorsiflexion of the right hallux is graded at 5/5 and neurovascular status is well-maintained. X-ray 3 views of the right foot reveal stable internal fixation with maintained correction of the deformity. Joint space to the first MTPJ appears to be within normal limits. There is a hallux abductus interphalangeus. Consolidation of the osteotomy is appreciated. Assessment: * Assessment: 1. A cquired hallux valgus with metatarsus primus varus of right foot - Q66.211 (Primary) 2 . H allux valgus of right foot - M20.11 3 . S urgical aftercare, musculoskeletal system - Z47.89 Plan: * Treatment: * Procedure Codes: * Follow Up: p rn * Images: * COLOGICAL ASSISTANT Sign off status: Completed true * Provider: Farrah Paulson DPM Date: 06/21/2022 Generated for Joan caballero/Yon/Stephan on: 0 09/07/2024 07:49 AM CDT History and Physical Notes * HPI (History of Present Illness) Category Sub-Category Detail Notes Category Not es Primary reason for visit: Surgery procedures performed: Right foot: bunionectomy 47 y/o male RTO 8 weeks s/p RIGHT foot surgery. At last visit treatment consisted of advised pt may transition to wearing good supportive tennis or sx shoe, advised to continue to limit WB activity, avoid high impact activity, and if sudden increase in pain or swelling return to CAM boot. Date of surgery: 02/23/2023 ALEXUS assisting with visit: HPI/Rooming: Jennifer Examination Category Sub-Category Detail Notes Category Not es General Examination Mental status: Cooperative, Oriented to per son, place and time, Mood and affect: normal, Judgement and intellect: normal with appropriate response to questions The incision site right foot is well coapted with excellent scar formation appreciated. No evidence of any cardinal signs of infection appreciated. Adequate correction of the deformity is appreciated however with some residual lateral deviation of the hallux. Normal range of motion of the right first MTPJ without pain or crepitus appreciated and there is no pain with palpation to the distal right first metatarsal. Muscle strength for plantarflexion and dorsiflexion of the right hallux is graded at 5/5 and neurovascular status is well-maintained. X-ray 3 views of the right foot reveal stable internal fixation with maintained correction of the deformity. Joint space to the first MTPJ appears to be within normal limits. There is a hallux abductus interphalangeus. Consolidation of the osteotomy is appreciated. Shoes today: Cowboy boots Exam unchanged from prior visit: Constitutional / Appearance: No acute di stress , Well nourished, Appropriate personal hygiene
[2024-09-07 08:40] LABS: Basophils Absolute Auto 0.1 K/mm3 (0.0-0.1); Basophils Percent Auto 0.9 % (0.2-1.2); Eosinophils Absolute Auto 0.1 K/mm3 (0-0.3); Hematocrit 51.2 % (42.0-52.0); Hemoglobin 17.7 g/dL (14.0-18.0); Immature Granulocyte Absolute 0.02 K/mm3 (0.00-0.031); Immature Granulocyte Percent A 0.3 % (0-0.5); Lymphocytes Percent Auto 16.7 % (18.3-44.2); Mean Corpuscular HGB Conc 34.6 g/dl (32-36); Mean Corpuscular Hemoglobin 32.5 pg (26-34); Mean Corpuscular Volume 93.9 fl (80-100); Mean Platelet Volume 8.9 fl (7.4-10.4); Monocytes Absolute Auto 0.7 K/mm3 (0.1-0.6); Monocytes Percent Auto 10.8 % (2.6-8.5); Neutrophils Absolute Auto 4.6 K/mm3 (1.3-6.7); Neutrophils Percent Auto 69.3 % (45.5-73.1); Platelet Count Result 203 k/mm3 (150-375); Red Blood Count 5.45 M/mm3 (4.6-6.20); Red Cell Distribution Width 14.3 % (11.5-14.5); White Blood Count 6.6 K/mm3 (4.5-10.0)
[2024-09-07 09:21] LABS: Alanine Aminotransferase 24 U/L (6-50); Albumin Level 3.7 g/dL (3.5-5.1); Alkaline Phosphatase 61 U/L (38-126); Anion Gap 6 mmol/L (4-12); Aspartate Amino Transferase 26 U/L (17-59); Bilirubin,Total 0.8 mg/dL (0.2-1.3); Blood Urea Nitrogen 7 mg/dL (9-20); Calcium 8.5 mg/dL (8.4-10.2); Carbon Dioxide 28 mmol/L (22-30); Chloride 102 mmol/L (98-107); Cholesterol 100 mg/dL (0-200); Estimated Glomerular Filt Rate 60; Glucose 92 mg/dL (65-110); HDL Direct 32 mg/dL; Potassium 3.2 mmol/L (3.4-5.0); Sodium 136 mmol/L (137-145); Triglycerides 90 mg/dL (<150)
[2024-09-07 09:32] LABS: LDL Cholesterol Direct 49 mg/dL
== END 2024-09-07 07:47 | disposition home or self-care (01) ==
LOC: ANHLAB 07:47
PROVIDERS: PCP Family Medicine; Visit Provider Student in an Organized Health Care Education/Training Program
DX: R53.83 Other fatigue (principal); I10 Essential (primary) hypertension
CPT/HCPCS: 36415; 80053; 80061; 85025

== ENCOUNTER 2024-10-28 00:40 | Day surgery (SDC) | payer BC, SELFPAY ==
[2024-10-18 11:29] VITALS: BMI 28.3
--- OUTSIDE RECORDS SUMMARY | 2024-10-28 00:43 | XMS_ITS | Clinical Summary ---
Author Organization [facility] Address [address] [address] Phone Care Team Providers Care Agricultural Purchasing Agent Name Role Phone Joelle Lawson MD Primary Care Provider [phone] Social History Tobacco Use Types Packs/Day Years [...] COLONOSCOPY (10/08/2015) Maurice Augustine MD PROCEDURE/MINOR SURGICAL ORDIndra GARCIA Final Result from Last 3 Months or Most Recently Relevant to Health Maintenance Insurance Care Teams Agricultural Purchasing Agent Relationship Specialty Start Date End Date Joelle Lawson MD [address] [place] [address] PCP - General Family Medicine 01/06/19
--- OUTSIDE RECORDS SUMMARY | 2024-10-28 00:43 | XMS_ITS | Patient Health Record ---
Author Organization [address] [facility] Address [address] [facility] [address] [place] [address] Care Team Providers Care Planning Official Name Role Phone UNKNOWN, UNKNOWN Primary Care Provider UnavailYefri Pérez Unavailable [phone] Allergies No Known Allergies Reason For Referral No Information Medications Medication SIG (Take, Route, Fr equency, Duration) Notes Start Date End Date Status azaTHIOprine Active amLODIPine Besylate Active hydroCHLOROthiazide Active Problems Problem Type SNOMED Code ICD Code Onset Dates Problem Status W/U Status Risk Notes Problem Hallux valgus (acquired), right foot (M20.11) Active confirmed Problem Hallux valgus of right foot ([id number]) Hallux valgus of right foot (M20.11) Active confirmed Problem 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 [address] [place] [address] [id number] Tracey Noe Self - patient is the insured Medical (General) History Medical History History ICD Code crohn's disease hypertension rotator cuff tear Right foot bunion Surgical History Surgery Date(Month/Year) colon resection colon resection 09/2019 rotator cuff repair vasectomy
[2024-10-28 11:42] VITALS: BP 96/65; PULSE 69; RESP 17; TEMP 36.3; O2SAT 98
[2024-10-28] MEDS: LACTATED RINGERS 1,000 ML 150 ML IV CONT (11:50)
--- NOTE | 2024-10-28 12:12 | WPDANESEPPF ---
Anes - Initial Pre Proc Eval Procedure: Operation Date: 10/28/24 12:30 Proposed Procedures p Colonoscopy - Bradley Arellano MD Date/Time: 10/28/24 12:12 Surgeon: Bradley Arellano MD Pre Op Diagnosis: Crohn's disease of small intestine with intestinal Patient Data Age: 48 Gender: M Height: 1.85 m Weight: 98 kg Last Vital Signs Temp 36.3 C L 10/28/24 11:42 Pulse 69 10/28/24 11:42 Resp 17 10/28/24 11:42 BP 96/65 L 10/28/24 11:42 Pulse Ox 98 10/28/24 11:42 O2 Del Method Room Air 10/28/24 11:42 Allergies Allergy/AdvReac Type Severity Reaction Status Date / Time No Known Allergies Allergy Verified 10/28/24 11:40 Home Medications ?Medication ?Instructions ?Recorded ?Confirmed ?Type azathioprine 50 mg tablet See Rx Instructions .Route 06/03/24 10/28/24 Rx .COMPLEX #180 tabs testosterone enanthate 50 mg/0.5 50 mg subcut WEEKLY 07/28/24 10/28/24 History mL subcutaneous auto-injector amlodipine 10 mg tablet 10 mg PO DAILY #90 tabs 09/12/24 10/28/24 Rx potassium chloride 10 mEq 10 meq PO DAILY #90 tabs 09/12/24 10/28/24 Rx tablet,extended release (Klor-Con) hydrochlorothiazide 12.5 mg tablet 12.5 mg PO DAILY #90 tabs 09/16/24 10/28/24 Rx Patient hx anesthesia problems: none Family hx anesthesia problems: none Results Review: All pre-operative results and documents have been reviewed as part of the pre-operative evaluation. COUNT INCLUDES THE [facility] Past Medical History Medical History RUTH (obstructive sleep apnea) High risk medication use Over weight (Unknown) Partial small bowel obstruction Lower abdominal pain History of Crohn's disease Surgical History Surgical History History of colon resection Attempted hand assisted laparoscopic ileocolic resection 2. Open ileocolic resection with side to side ileocolic anastomosis 3. Extensive adhesiolysis History of resection of small bowel 1997 Ileocecectomy Family History Family History Father Hypertension Father Hypertension Family history of elevated blood lipids Social History Social History Smoking packs per day: 0.20 Smoking cigarettes per day: 4.0 Years smoked: 24 Smoking pack-years: 4.80 Smoking status: Former smoker (quit in 2020) Tobacco type: smokeless tobacco Smokeless tobacco user: chewing tobacco Second hand tobacco smoke exposure: Yes Additional smoking assessment comments: quit smoking but uses chewing tobacco Alcohol intake: current Drinks per week: 10 Substance use: never Substance use type: does not use Living arrangements: with family Gender identity (if verbalized by the patient): Male Spiritual care concerns: No Agree to blood products: Yes Anes - Eval Final PreProcedure Day of Procedure 10/28/24 12:12 Patient weight: overweight Heart: regular rate and rhythm Lungs: clear to auscultation Airway: Mallampati scale class II Neurological: alert and oriented Last oral intake: >/= 8 hours ASA classification: III Emergent: no Anesthetic plan: proceed Anesthesia type and monitoring: general GIVS and standard monitoring Results Review: All pre-operative results and documents have been reviewed as part of the pre-operative evaluation. Informed Consent: The patient's anesthetic plan and its attendant risks and benefits were discussed with the patient/family/POA. Questions were solicited and answers provided to the satisfaction of the patient/family/POA.
--- NOTE | 2024-10-28 12:42 | PM.IMHP ---
H&P: HPI History of Present Illness Date/Time: 10/28/24 12:42 Chief Complaint: Crohn's disease Narrative: patient with longstanding Crohn's disease, status post right hemicolectomy in 1996 and a 2nd resection years later. He has been doing well on azathioprine maintenance, and has never been on any biologic treatment due to insurance denials. He states he has chronic diarrhea, at least 6-8 episodes per day. He is referred today for colonoscopy. Review of Systems Review of Systems: All systems reviewed & are unremarkable except as noted in HPI and below PMFSH Past Medical History Medical History RUTH (obstructive sleep apnea) High risk medication use Over weight (Unknown) Partial small bowel obstruction Lower abdominal pain History of Crohn's disease Surgical History Surgical History History of colon resection Attempted hand assisted laparoscopic ileocolic resection 2. Open ileocolic resection with side to side ileocolic anastomosis 3. Extensive adhesiolysis History of resection of small bowel 1996 Ileocecectomy Family History Family History Father Hypertension Father Hypertension Family history of elevated blood lipids Social History Social History Smoking packs per day: 0.20 Smoking cigarettes per day: 4.0 Years smoked: 24 Smoking pack-years: 4.80 Smoking status: Former smoker (quit in 2020) Tobacco type: smokeless tobacco Smokeless tobacco user: chewing tobacco Second hand tobacco smoke exposure: Yes Additional smoking assessment comments: quit smoking but uses chewing tobacco Alcohol intake: current Drinks per week: 10 Substance use: never Substance use type: does not use Living arrangements: with family Gender identity (if verbalized by the patient): Male Spiritual care concerns: No Agree to blood products: Yes Meds Home Medications and Allergies Home Medications ?Medication ?Instructions ?Recorded ?Confirmed ?Type azathioprine 50 mg tablet See Rx Instructions .Route 06/03/24 10/28/24 Rx .COMPLEX #180 tabs testosterone enanthate 50 mg/0.5 50 mg subcut WEEKLY 07/28/24 10/28/24 History mL subcutaneous auto-injector amlodipine 10 mg tablet 10 mg PO DAILY #90 tabs 09/12/24 10/28/24 Rx potassium chloride 10 mEq 10 meq PO DAILY #90 tabs 09/12/24 10/28/24 Rx tablet,extended release (Klor-Con) hydrochlorothiazide 12.5 mg tablet 12.5 mg PO DAILY #90 tabs 09/16/24 10/28/24 Rx Allergies Allergy/AdvReac Type Severity Reaction Status Date / Time No Known Allergies Allergy Verified 10/28/24 11:40 Vital Signs Vital Signs - 24 hr 10/28/24 11:42 Temperature 97.3 F L Pulse Rate 69 Respiratory Rate 17 Blood Pressure 96/65 L Pulse Oximetry 98 Oxygen Delivery Room Air Exam Const: General: cooperative and healthy appearing Resp: Effort & Inspection: normal respiratory effort and able to speak in complete sentences Auscultation: clear to auscultation bilaterally Cardio: Rate: regular rate Rhythm: regular rhythm GI: Inspection: normal to inspection GI Palp: No No hepatosplenomegaly present Auscultation: normal bowel sounds Rectal Exam: deferred Skin: General skin exam: normal color Psych: Appearance: grossly normal Mental Status: mental status grossly normal Assessment and Plan Assessment and plan (1) Crohn's disease of small intestine with intestinal obstruction: Onset Date: ~1996 Code(s): K50.012 - Crohn's disease of small intestine with intestinal obstruction Status: Acute Assessment and Plan: The patient is deemed a good candidate for the procedure. Consent signed. Will proceed.
--- NOTE | 2024-10-28 13:07 | S_PTH ---
PATIENT: Noe Webb II LOC: [facility] U#:[id number] AGE/SX: 48/M ROOM: RE10/28/[address]: Bradley Arellano MD : 1975 BED: DIS: 10/28/2024 SPEC #: [id number] RECD: 10/31/24 07:29 STATUS: LARRY REJanett #: [id number] RAF: 10/28/24 13:[address]: Bradley Arellano DEPT: [facility] Surgical RECD BY: Cinda Patel ENTERED: 10/31/24 07:29 SP TYPE: Surgical OTHR DR: Joelle Lawson, Tissues: A - Colon Biopsy Procedures: Hematoxylin and Eosin Stain Gross and Microscopic Level 4
[2024-10-28 13:08] VITALS: BP 91/60; PULSE 49; RESP 21; O2SAT 100
[2024-10-28 13:18] VITALS: BP 102/67; PULSE 60; RESP 26; O2SAT 99
[2024-10-28 13:28] VITALS: BP 98/66; PULSE 55; RESP 19; O2SAT 99
== END 2024-10-28 13:41 | disposition home or self-care (01) ==
PROVIDERS: PCP Family Medicine; Referring Provider Nurse Practitioner Family; Visit Provider Internal Medicine Gastroenterology
PROC: 0DJD8ZZ Inspection of Lower Intestinal Tract, Via Natural or Artificial Opening Endoscopic (ICD-10-PCS; CPT 45378; principal; 2024-10-28 12:30)
DX: K50.012 Crohn's disease of small intestine with intestinal obstruction (principal); K63.3 Ulcer of intestine; Z98.0 Intestinal bypass and anastomosis status; Z90.49 Acquired absence of other specified parts of digestive tract; F17.220 Nicotine dependence, chewing tobacco, uncomplicated
CPT/HCPCS: 45380; 88305; J2003; J2704; J7120

== ENCOUNTER 2025-03-21 16:10 | Outpatient (CLI) | payer BC, SELFPAY ==
--- OUTSIDE RECORDS SUMMARY | 2010-03-11 03:41 | XMS_ITS | Continuity of Care Document ---
Author Organization 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 Name Role Phone Noe Valentin MD Unavailable Unavailable Medications Medication Instructions Dosage Effective Dates (start - stop) Status Comments tobramycin 0.3 % Eye Drops OS 1 gtt q 1hr - Active Quixin 0.5 % Eye Drops OS 1 gtt q 1 hr - Active Vicodin 5 mg-500 mg Tab 1-2 tabs q 4-6hrs as needed for pain - Active tobramycin 0.3 % Eye Drops OS 1 gtt q 1hr - No Longer Active Procedures Procedure Date Ophth Serv: Med Exam; Interm E 10 Collection Fee Ophth Serv: Med Exam; Interm E 10 Ophth Serv: Exam-eval; Interme 10 Advance Directives Directive Yes / No Effective Date File Name No Information Encounters Encounter Description Practice Location Reason(s) For Visit Diagnoses Date Provider Providers Copied on Encounter [facility] Formerly named [facility] [address] [facility] [address], [place], [place], [id number], [place] tel:[phone] [facility] ([facility] No Information Barbie Liu. Formerly named [facility] [address] [facility] [address], [place], [id number], [place]. tel:[phone] [facility] Formerly named [facility] [address] [facility] [address], [place], [place], [id number], [place] tel:[phone] [facility] ([facility]) Corneal Ulcer Nos Jitendra Liu. [address] [facility] [address], [place], [id number], [place]. tel:[phone] [facility], Formerly named [facility] [address] [address], [place], [place], [id number], [place] tel:[phone] [facility] ([facility]) Corneal Ulcer Nos Barbie Liu. [address], [id number], [place]. tel:[phone] [facility], [address] [place] [address], [place], [place], [id number], [place] tel:[phone] [facility]) Corneal Ulcer Nos Jitendra Liu. [address] [address], [place], [place], [id number], [place]. tel:[phone] [facility], [address] [place] [address], [id number], [place] tel:[phone] [facility] ([facility]) Corneal Ulcer Nos Jitendra Liu. [address], [id number], [place]. tel:[phone] [facility], [address] [place] [address], [id number], [place] tel:[phone] [facility] ([facility]) No Information Jitendra Liu. Formerly named [facility] N [address], [id number], [place]. tel:[phone] Family History Family Member Type Diagnosis Age At Onset Father Problem (finding) cataract Payers Payer name Insurance type Covered green party ID Authoriza tinicolas(s) Daxkatalinatri O CI [id number] Social History Type Description Quantity Date Captured Comments Sex Male Smoking Status No Information Chief Complaint And Reason For Visit No Information Reason For Referral Reason For Referral No Information History Of Present Illness Encounter Date Complaint History Of Prese nt Illness No Information Functional Status Date Functional Assessmen t No Information Instructions Date Instruction Additional Infor heath - Return in 1 week f or Follow up (42112), with Dr. Ham. Related to Corneal Ulcer 370.00, Corneal Ulce r, Left eye - Discussed diagnosis in detail with patient. Taper medication(s) as instructed. Related to Corneal Ulcer 370.00, Corneal Ulcer, Left eye Related to Corneal Ulcer 370.00, Corneal Ulce r, Left eye - Unchanged No worse Switch Zymar to Quixen q 1 hr and cont. Tobramycin q 1 hr as using. Okay to return to [facility]. NO CL Related to Corneal Ulcer - Return fo r Follow up (71855), with Dr. Ham. Related to Corneal Ulcer - Return in 1 day fo r Follow up ([id number]), , with Dr. Ham. Related to Corneal Ulcer 370.00, Corneal Ulce r, Left eye - Increase Tobramycin to q 1 hr and start Zymar q 1 hr OS. Star Vicodin 1-2 tabs q 4-6 hrs as needed for pain. Start Cyclogyl BID OS. Stop CL. Vicodin rx as needed for painAbsoloutely no cl. Call if worsens. Unable to culture CL patient threw it away Related to Corneal Ulcer Assessments Type Assessment Date No Information Patient Care Teams Name Effective Dates (start - stop) Status Members No Information
[2025-03-21 16:52] LABS: Anion Gap 10 mmol/L (4-12); Blood Urea Nitrogen 11 mg/dL (9-20); Calcium 9.2 mg/dL (8.4-10.2); Carbon Dioxide 26 mmol/L (22-30); Chloride 102 mmol/L (98-107); Estimated Glomerular Filt Rate > 60; Glucose 96 mg/dL (65-110); Potassium 3.6 mmol/L (3.4-5.0); Sodium 138 mmol/L (137-145)
--- OUTSIDE RECORDS SUMMARY | 2025-03-21 17:50 | XMS_ITS | Clinical Summary ---
Author Organization [facility] Address [facility] [place] [address] Care Team Providers Care Supervisor Sleeping Bag Department Name Role Phone Joelle Lawson MD Primary Care Provider [phone] Medications oxymetazoline (AFRIN 12 HOUR) 0.05 % [...] 11:29 AM CDT Height 185.4 cm (6' 1) 12/12/2021 11:2 9 AM CDT Body Mass Index 33.89 12/12/2021 11:29 AM CDT Plan of Treatment Health Maintenance Due Date Last Done Comments Colorectal Cancer Screening Colonoscopy (10 Years) 1975 Annual Physical 01/01/1980 Hepatitis C 1994 Hepatitis B Vaccines (1 of 3 - 19+ 3-dose series) 01/01/1996 Pneumococcal Vaccine: Pediat rics (0 to 5 Years) and At-Risk Patients (6 to 49 Years) (1 of 2 - PCV) 01/01/1996 COVID-19 Vaccine (1 - 2024-2 6 season) 2025 Influenza Adult (#1) 2025 DTaP, Tdap and Td Vaccines ( 2 - Td or Tdap) 12/13/2031 12/12/2021 Hepatitis A Vaccines Aged Out No long er eligible based on patient's age to complete this topic Meningococcal B Vaccine Aged Out No l onger eligible based on patient's age to complete this topic Meningococcal Vaccine Aged Out No rosamaria josh eligible based on patient's age to complete this topic RSV Immunizations Under 20 Months Aged Out No longer eligible based on patient's age to complete this topic Insurance [employer] Care Teams Supervisor Sleeping Bag Department Relationship Specialty Start Date End Date Joelle Lawson MD [address] [place] [address] PCP - General FAMILY PRACTICE 12/12/21
--- OUTSIDE RECORDS SUMMARY | 2025-03-21 17:50 | XMS_ITS | Encounter Summary ---
Author Organization [facility] Address [address] [place] [address] Care Team Providers Care Production Line Mechanic Name Role Phone Joelle Lawson MD Primary Care Provider Encounter Details Date Type Department Care Team (Late st Contact Info) Description 03/14/2025 Orders Only [facility] - [facility] [address], [facility] [address] [place] [address] Francisco Issa MD [address] [facility] [address] [place] [address] Left shoulder pain, unspecified chronicity Social History Tobacco Use Types Packs/Day Years Used Date Smoking Tobacco: Never Assessed PHQ-2 Answer Date Recorded Patient Health Questionnaire-2 Score 1 03/15/2025 Sex and Gender Information Value Date Recorded Sex Assigned at Not on file Legal Sex Male 4:14 AM CDT Gender Identity Not on file Sexual Orientation Not on file documented as of this encounter Functional Status * Over the past 2 weeks, how often have you been bothered by any of the following problems? Question Answer Date of Assessment Author Patient Health Questionnaire-2 Score 1 03/15/2025 1:58 PM CDT Ipad, Slustclar e [id number] * Little interest or pleasure in doing things Answer Date of Assessment Author Several days 03/15/2025 1:58 PM CDT Ipad, Slu stclare [id number] * Feeling down, depressed, or hopeless Answer Date of Assessment Author Not at all 03/15/2025 1:58 PM CDT Ipad, Slu stclare [id number] documented as of this encounter Plan of Treatment Not on file documented as of this encounter Results * XR Shoulder Left 2Vw or More (03/15/2025 1:52 PM CDT) Anatomical Region Laterality Modality Upper Extremity Computed Radiogr aphy 03/15/2025 4:45 PM CDT Impressions 03/15/2025 4:45 PM CDT IMPRESSION: Degenerative changes > Interpreting Provider: Jacob Arrieta MD on 03/15/2025 4:45 PM Narrative 03/15/2025 4:45 PM CDT PROCEDURE: XR SHOULDER LEFT 2VW OR MORE DATE/TIME OF EXAM: 03/15/2025 1:52 PM CLINICAL INFORMATION: None relevant/not provided if blank. Indication: M25.512: Left shoulder pain, unspecified chronicity Additional History: COMPARISON: None. FINDINGS: 4 views show degenerative changes of the acromioclavicular joint. No displaced fracture or subluxation is present. Procedure Note Jacob Arrieta MD - 03/15/2025 PROCEDURE: XR SHOULDER LEFT 2VW OR MORE DATE/TIME OF EXAM: 03/15/2025 1:52 PM CLINICAL INFORMATION: None relevant/not provided if blank. Indication: M25.512: Left shoulder pain, unspecified chronicity Additional History: COMPARISON: None. FINDINGS: 4 views show degenerative changes of the acromioclavicular joint. No displaced fracture or subluxation is present. IMPRESSION: Degenerative changes > Interpreting Provider: Jacob Arrieta MD on 03/15/2025 4:45 PM Francsico Issa MD DIAGNOSTIC IMAGING ORDERABL ES Final Result documented in this encounter Visit Diagnoses Diagnosis Left shoulder pain, unspecified chronicity- Primary Left shoulder pain, unspecified chronicity documented in this encounter Care Teams Production Line Mechanic Relationship Specialty Start Date End Date Joelle Lawson MD [address] [place] [address] PCP - General 02/04/19 documented as of this encounter
--- OUTSIDE RECORDS SUMMARY | 2025-03-21 17:50 | XMS_ITS | Clinical Summary ---
Author Organization [facility] Address [address] [address] Phone Care Team Providers Care Cancer Program Director Name Role Phone Joelle Lawson MD Primary Care Provider [phone] Social History Tobacco Use Types Packs/Day Years [...] of 3 - 19+ 3-dose series) 01/01/1996 Cologuard 2021 Immunochemical Fecal Occult Blood 2021 Influenza Immunization (#1) 2025 SARS-COV-2 Immunization ( season) 2025 Colonoscopy 10/07/2025 10/08/2015 Colorectal Cancer Screening 10/07/2025 Respiratory Syncytial Virus (RSV) Immunization (Adult) (1 - 1-dose 75+ series) 01/01/2052 Human Papillomavirus (HPV) Immunization Aged Out No longer eligible b ased on patient's age to complete this topic Meningococcal Immunization (ACWY) Aged Out No longer [...] Recently Relevant to Health Maintenance Results * COLONOSCOPY (10/08/2015) Maurice Augustine MD PROCEDURE/MINOR SURGICAL SARAY GARCIA Final Result from Last 3 Months or Most Recently Relevant to Health Maintenance [place] [address] [address] [place] [address] Care Teams Cancer Program Director Relationship Specialty Start Date End Date Joelle Lawson MD [address] [place] [address] PCP - General Family Medicine 01/06/19
--- OUTSIDE RECORDS SUMMARY | 2025-03-21 17:50 | XMS_ITS | Clinical Summary ---
Author Organization [facility] Address [address] [place] [address] Care Team Providers Care Nurse'S Companion Name Role Phone Joelle Lawson MD Primary Care Provider [phone] Source Comments [facility],non-owned Affiliates and Associated Physician Practices is amultiple site organization consisting of ambulatory clinics and hospital sitesin [place], [place], [place] and [place]. This disclosure is being madepursuant to the Care Everywhere program and may not contain all information available regarding this patient. Last updated 18.[facility] Allergies No known active allergies Medications * Be aware that medications may not be up to date on this document. Alwaysverify current medications with the patient. testosterone cypionate (Depo-Testoster one) 200 MG/ML injection INJECT 0.25 ML INTO THE MUSCLE ONCE WEEKLY. DISCARD VIAL AFTER USE. 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 03/15/2025 Encounters Date Type Department Care Team Description 03/15/2025 2:00 PM CDT Office Visit [facility] - Orthopedic Surgery [address] [place] [address] [id number] Francisco Issa MD Left shoulder pain, unspecified chronicity (Primary Dx) 03/15/2025 1:43 PM CDT - 03/15/2025 11:59 PM CDT Hospital Encounter [facility] - Radiology [address] [address] Francisco Issa MD Discharge Disposition: Home or Self Care 03/15/2025 Travel 03/14/2025 Orders Only [facility] - Orthopedic Surgery [address] [id number] Francisco Issa MD Left shoulder pain, unspecified chronicity from Last 3 Months Immunizations Immunization Administration Dates Next Due TDAP (7yrs+) 12/12/2021 Social History Tobacco Use Types Packs/Day Years Used Date Smoking Tobacco: Unknown Tobacco Cessation:Counseling Given: Not Answered PHQ-2 Answer Date Recorded Patient Health Questionnaire-2 Score 1 03/15/2025 Sex and Gender Information Value Date Recorded Sex Assigned at Not on file Legal Sex Male 4:14 AM CDT Gender Identity Not on file Sexual Orientation Not on file Last Filed Vital Signs Vital Sign Reading Time Taken Comments Blood Pressure - - Pulse - - Temperature - - Respiratory Rate - - Oxygen Saturation - - Inhaled Oxygen Concentration - - Weight 88 kg (194 lb) 03/15/2025 1:50 PM CDT Height 185.4 cm (6' 1) 03/15/2025 1:50 PM CDT Body Mass Index 25.6 03/15/2025 1:50 PM CDT Plan of Treatment Health Maintenance Due Date Last Done Comments COLOGUARD (AGES 45-75) - COL ON CA SCREENING 1976 COLON MONITORING 1976 COLONOSCOPY - COLON CA SCREENING 1976 CT COLONOGRAPHY - COLON CA SCREENING 1976 Colorectal Cancer Screening 1976 FIT - COLON CA SCREENING 1976 FLEX SIG - COLON CA SCREENING 1976 LIPID TESTING 1976 COVID-19 VACCINE (#1) 1981 HIV SCREENING 01/01/1992 HEPATITIS C SCREENING 12/27/1994 HEPATITIS B VACCINE (1 of 3 - 19+ 3-dose series) 01/01/1996 PNEUMOCOCCAL VACCINE (1 of 2 - PCV) 01/01/1996 ZOSTER VACCINE (1 of 2) 01/01/1996 INFLUENZA VACCINE (#1) 2025 SCREENING FOR DIABETES 03/15/2025 DTAP/TDAP/TD VACCINES (2 - T d or Tdap) 12/13/2031 12/12/2021 DEPRESSION SCREENING Completed 03/15/2025 HIB VACCINE Aged Out No longer eligi ble based on patient's age to complete this topic HPV VACCINE Aged Out No longer eligi ble based on patient's age to complete this topic MENINGOCOCCAL (Group B) VACC INE SHARED DECISION-MAKING Aged Out No longer eligibl e based on patient's age to complete this topic MENINGOCOCCAL GROUPS A/C/Y/W VACCINE Aged Out No longer eligible b ased on patient's age to complete this topic Procedures Procedure Name Priority Date/Time Associated Diagnosis Comments XR SHOULDER LEFT 2VW OR MORE Routine 03/15/2025 1:52 PM CDT Left shoulder pain, unspecified chronicity from Last 3 Months Results * XR Shoulder Left 2Vw or [...] Jacob Arrieta MD on 03/15/2025 4:45 PM Francisco Issa MD DIAGNOSTIC IMAGING ORDERABL ES Final Result from Last 3 Months Insurance SELF PAY NO INSURANCE Member Subscriber Plan / Payer (Ef fective for All Dates) Name:Bennett Webb Harish II Member ID:Not on file Relation to Subscriber:Not on file Name:BENNETT WEBB II Subscriber ID:Not on file (Home) Address: [address] [place] [address] Payer ID:Not on file Group ID:Not on file Type:Self Pay Address: [facility] [address] [place] [id number] Care Teams Nurse'S Companion Relationship Specialty Start Date End Date Joelle Lawson MD [address] [place] [address] PCP - General 02/04/19
== END 2025-03-21 16:11 | disposition home or self-care (01) ==
LOC: ANHLAB 16:11
PROVIDERS: PCP Family Medicine; Visit Provider Student in an Organized Health Care Education/Training Program
DX: I10 Essential (primary) hypertension (principal)
CPT/HCPCS: 36415; 80048

== ENCOUNTER 2025-04-14 05:55 | Outpatient (CLI) | payer BC, SELFPAY ==
--- NOTE | 2025-04-04 10:12 | SUR.PREOP ---
Reviewed patients history of crohn's and bowel resections with Cookie Duenas RN prior to Capsule endoscopy. Colonoscopy just performed earlier in the year without complication.
--- NOTE | 2025-04-14 06:35 | SUR.OPER ---
Patient brought to GI Lab. Instructions for patient undergoing Capsule Endoscopy reviewed with patient. Consent form signed. Sensor array applied to patient's abdomen and connected to recorded. Patient swallowed capsule with 16ozs of water infused with Simethicone. Patient instructed they may have clear liquids at 0815 this AM and eat or drink at 1015 this AM. Patient instructed to return to GI Lab at 1500 this afternoon for removal of recording device and to call [phone] or to return to the hospital if any nausea and vomiting or abdominal pain is experienced. PT stated understood instructions.
--- NOTE | 2025-04-14 13:57 | SUR.PREOP ---
Patient returned to the GI Lab at 1357 for recorder box removal. Patient voiced no complaints. States they have understanding of instructions. Patient left ambulatory.
== END 2025-04-14 05:56 | disposition home or self-care (01) ==
PROVIDERS: PCP Student in an Organized Health Care Education/Training Program; Referring Provider Internal Medicine Gastroenterology; Visit Provider Internal Medicine Gastroenterology
PROC: (CPT 91110; principal; 2025-04-14 07:00)
DX: Z01.818 Encounter for other preprocedural examination (principal); K50.80 Crohn's disease of both small and large intestine without complications
CPT/HCPCS: 91110